=== PATIENT | male | born 1950 | race Caucasian/White ===

== ENCOUNTER → 2017-12-19 12:00 | Outpatient (CLI) | payer MEDICARE, SELFPAY | PROVIDERS: PCP Family Medicine; Visit Provider Internal Medicine Cardiovascular Disease | DX: I25.10 Atherosclerotic heart disease of native coronary artery without angina pectoris (principal); Z79.01 Long term (current) use of anticoagulants; I73.9 Peripheral vascular disease, unspecified; I10 Essential (primary) hypertension; E78.5 Hyperlipidemia, unspecified | CPT/HCPCS: 99213 ==

== ENCOUNTER 2017-12-26 11:34 | Outpatient (RCR) | payer MEDICARE, SELFPAY | END 2017-12-26 23:59 | disposition home or self-care (01) | LOC: CR 11:34 | PROVIDERS: PCP Family Medicine; Visit Provider Family Medicine | DX: I25.2 Old myocardial infarction (principal); Z95.5 Presence of coronary angioplasty implant and graft | CPT/HCPCS: S9472 ==

== ENCOUNTER 2017-12-30 18:30 | Outpatient (REF) | payer MEDICARE, SELFPAY ==
[2017-12-30 19:47] LABS: COMMENT (LAB VIEW ONLY) 168.22 mg/dL; Microalb ug/mg Crea 4.4 ug/mg Cr
== END 2017-12-30 18:50 ==
LOC: NCHCN 18:30
PROVIDERS: PCP Family Medicine; Visit Provider Family Medicine
DX: E11.8 Type 2 diabetes mellitus with unspecified complications (principal)
CPT/HCPCS: 82043; 82570

== ENCOUNTER 2018-01-23 13:19 | Outpatient (RCR) | payer MEDICARE, SELFPAY | END 2018-01-25 23:59 | disposition home or self-care (01) | LOC: CR 13:19 | PROVIDERS: PCP Family Medicine; Visit Provider Family Medicine | DX: I25.2 Old myocardial infarction (principal); Z95.5 Presence of coronary angioplasty implant and graft; Z51.89 Encounter for other specified aftercare | CPT/HCPCS: S9472 ==

== ENCOUNTER 2018-02-11 09:00 | Outpatient (RCR) | payer MEDICARE, SELFPAY | END 2018-02-25 23:59 | disposition home or self-care (01) | LOC: CR 09:00 | PROVIDERS: PCP Family Medicine; Visit Provider Family Medicine | DX: I25.2 Old myocardial infarction (principal); Z95.5 Presence of coronary angioplasty implant and graft; Z51.89 Encounter for other specified aftercare | CPT/HCPCS: S9472 ==

== ENCOUNTER 2018-03-27 13:20 | Outpatient (RCR) | payer MEDICARE, SELFPAY | END 2018-03-27 23:59 | disposition home or self-care (01) | LOC: CR 13:20 | PROVIDERS: PCP Family Medicine; Visit Provider Family Medicine | DX: I25.2 Old myocardial infarction (principal); Z95.5 Presence of coronary angioplasty implant and graft; Z51.89 Encounter for other specified aftercare | CPT/HCPCS: S9472 ==

== ENCOUNTER 2018-03-28 00:49 | Outpatient (RCR) | payer MEDICARE, SELFPAY | END 2018-04-27 23:59 | disposition home or self-care (01) | LOC: CR 00:49 | PROVIDERS: PCP Family Medicine; Visit Provider Family Medicine | DX: I25.2 Old myocardial infarction (principal); Z95.5 Presence of coronary angioplasty implant and graft; Z51.89 Encounter for other specified aftercare | CPT/HCPCS: S9472 ==

== ENCOUNTER 2018-04-29 10:40 | Outpatient (RCR) | payer MEDICARE, SELFPAY | END 2018-05-28 23:59 | disposition home or self-care (01) | LOC: CR 10:40 | PROVIDERS: PCP Family Medicine; Visit Provider Family Medicine | DX: I25.2 Old myocardial infarction (principal); Z95.5 Presence of coronary angioplasty implant and graft; Z51.89 Encounter for other specified aftercare ==

== ENCOUNTER 2020-01-16 17:09 | Emergency (ER) | payer MEDICARE, SELFPAY ==
--- NOTE | 2020-01-16 17:00 | RT.EKG_ITS ---
APPROVED REPORT Exam: Resting ECG Patient Location: E HR:76 bpm ECG Measurements Heart Rate 76 AXIS AZ 205 P 62 QRSd 98 QRS 47 QT 397 T 7 QTc 448 Conclusion Sinus rhythm...normal P axis, V-rate 60- 99. T wave inversion in lead III, seen in previous EKG. No STEMI.
[2020-01-16 17:18] VITALS: BP 180/79; PULSE 77; RESP 20; TEMP 36.9; O2SAT 98
[2020-01-16 17:44] LABS: Abs Immature Grans 0.36 10^3/uL (0.0-0.06); HCT 39.1 % (40.0-50.0); HGB 12.3 g/dL (13.5-17.5); MCH 30.5 pg (27.0-33.0); MCHC 31.5 % (32.0-36.0); MPV 10.2 fL (8.0-11.0); Nucleated RBC 0 %; Platelet Count 403 10^3/uL (130-400); RBC 4.03 10^6/uL (4.36-5.78); RDW 13.7 % (11.8-14.1); RDW-SD 48.6 fL
[2020-01-16 18:00] VITALS: BP 144/77; PULSE 81; RESP 24; O2SAT 97
[2020-01-16 18:00] LABS: INR 1.1 (0.9-1.1); Macrocytosis 1+; PTT Activated 21.4 sec (21.0-31.4); Prothrombin Time 11.3 sec (9.3-11.0)
[2020-01-16] MEDS: Normal Saline 500 ML IV ×2 (18:00→19:55)
[2020-01-16 18:01] LABS: ALT 42 U/L (16-63); AST 27 U/L (15-37); Albumin 3.7 g/dL (3.4-5.0); Alkaline Phosphatase 75 U/L (46-116); BUN 38 mg/dL (7-18); Bilirubin, Total 1.1 mg/dL (0.2-1.0); CREATININE 2.37 mg/dL (0.70-1.30); Calcium 9.4 mg/dL (8.5-10.1); Chloride 103 mmol/L (98-107); Diff Comment Manual Differential; Estimated GFR 27.21 (mL/min/1.73m2); Glucose 162 mg/dL (74-106); Magnesium 2.3 mg/dL (1.8-2.4); Potassium 4.6 mmol/L (3.5-5.1); Sodium 137 mmol/L (136-145); Total Protein 8.8 g/dL (6.4-8.2)
--- NOTE | 2020-01-16 18:02 | ED.GENADUL_ITS ---
Discharge Plan Disposition [facility] Condition: Serious Discharge Details Chief Complaint: Abd Prob Clinical Impression: Endoleak of aortic graft, Hematoma of right iliopsoas muscle, Fever, Bandemia, Acute kidney injury superimposed on chronic kidney disease Primary Care Provider: Douglas Hernandez ED Provider: Noa Herron Home Meds and New Rx's Prescriptions: No Action metoprolol succinate 100 MG tablet extended release 24 hr 100 mg PO DAILY 90 Days Qty: 90 RF: 4 metformin 500 MG tablet 500 mg PO DAILY RF: 0 atorvastatin [Lipitor] 80 MG tablet 80 mg PO HS RF: 0 clopidogrel [Plavix] 75 MG tablet 75 mg PO DAILY RF: 0 lisinopril 10 MG tablet 10 mg PO DAILY RF: 0 nitroglycerin [Nitrostat] 0.4 MG tablet, sublingual 0.4 mg Sublingual DIRECTED RF: 0 acetaminophen [Tylenol] 325 MG tablet 650 mg PO Q6H PRN PRNRF: 0 warfarin [Coumadin] 2.5 MG tablet 7.5 mg PO MOWEFR@1999 Qty: 100 RF: 0 isosorbide mononitrate 60 MG tablet extended release 24 hr 120 mg PO DAILY Qty: 60 RF: 3 warfarin [Coumadin] 5 MG tablet 10 mg PO SUTUTHSA@2000 Qty: 100 RF: 0 insulin aspart U-100 [Novolog Flexpen U-100 Insulin] 300 UNITS/3 ML insulin pen 5 units Sub-Q 0800,1200,1700 Qty: 5 RF: 3 insulin glargine [Lantus Solostar U-100 Insulin] 300 UNITS/3 ML insulin pen 35 units Sub-Q HS Qty: 5 RF: 3 (DME) blood sugar diagnostic [Blood Glucose Test] 1 EACH strip 1 ea Sub-Q AC Qty: 100 RF: 3 Medical Decision Making 1725 -- 69-year-old male with a history of abdominal aortic aneurysm who is 11 days status post right AUI stent graft for type IA endoleak from prior EVAR at the OR complicated by intramuscular hematoma requiring PRBC transfusion presents for sudden onset of bilateral hip pain and left leg pain and right-sided abdominal pain. BP hypertensive. Heart rate within normal limits. Initially afebrile and then developed a temp of 100.2. Abdomen is soft and tender along the staple incision site. There is right flank ecchymosis in various stages. His bilateral DP/PT pulses are faintly palpable. No lower extremity skin changes and otherwise neurovascular intact without focal deficits. EKG notes a rate of 76 and sinus with no acute ST ischemic findings. Concern for worsening intramuscular hematoma or intraperitoneal bleeding. Consi nuvia also DVT as patient has a history of DVT and his Coumadin has been stopped for the past week. Will obtain screening labs and CTA abdomen with runoff. 1800 -- Labs reviewed and note a white blood cell count of 13. Hemoglobin of 12.3. Bands of 2. INR of 1.1. Creatinine 2.37. [facility] his creatinine was noted to be 1.76. Troponin today negative. CTA changed to CT abdomen and pelvis without contrast and noted: 1. Defect in the graft material of infra renal abdominal aortic aneurysm stent with foci of increased density could reflect endoleak, and is suspicious of type 3 endoleak. 2. There are changes due to bifemoral bypass. There is hematoma within the right iliopsoas muscle adjacent to right lower quadrant. There is a focus of hyperdensity in the intra-abdominal region at the site of the graft in the right lower quadrant which might reflect clot from recent surgery, however, evaluation is limited due to the lack of administration of IV contrast for any active extravasation. There is mild swelling in the bilateral inguinal region due to recent bypass femoral graft. There is no abscess. 3. Diverticulosis of large bowel without signs of acute inflammation. 1845 -- [facility] discussed [facility] the [facility] and agree with plan for transfer. Results also discussed with patient and his daughter who are agreeable with plan. Will cover with Zosyn. Urinalysis ordered but not yet obtained prior to transfer. Medical Records Medical records reviewed: Yes I reviewed the patient's medical records. Imaging Data Radiologic Study: Radiologist's impression: CT Abdomen And Pelvis Without Contrast Exam date and time: 01/16/2020 6:25 PM Age: 69 years old Clinical indication: Other: B/l hip pain, L leg pain, S/P fem bypass; Prior surgery; Surgery date: <1 month; Surgery type: Jan 03 femoral bypass; Additional info: Rlq pain at surgical site, R/O acute abd, bleeding TECHNIQUE: Imaging protocol: Computed tomography of the abdomen and pelvis without contrast. Radiation optimization: All CT scans at this facility use at least one of these dose optimization techniques: automated exposure control; mA and/or kV adjustment per patient size (includes targeted exams where dose is matched to clinical indication); or iterative reconstruction. COMPARISON: No relevant prior studies available. FINDINGS: Lungs: There are bibasilar reticular interstitial thickening. Liver: There is mild hepatic steatosis. Gallbladder and bile ducts: Gallbladder is normally distended. The fluid within the gallbladder is hyperdense which could be due to concentrated bile versus sludge. No signs of acute inflammation. Pancreas: Normal. No ductal dilation. Spleen: There is calcified granuloma of the spleen. Adrenals: Normal. No mass. Kidneys and ureters: There is right renal cyst. The ureters are normal in course and caliber. Urinary bladder is unremarkable. Stomach and bowel: There is diffuse diverticulosis sigmoid and descending colon . large bowel is overall not distended. Small bowel is within normal limits in size. Stomach is mildly distended, otherwise unremarkable. Appendix: No evidence of appendicitis. Intraperitoneal space: There is no free air. Vasculature: There is a abdominal aortic stent graft from the level of origin of superior mesenteric artery and extends to the common and external iliac arteries . There is a 4.6 x 4 .6 cm infrarenal abdominal aortic aneurysm. There is a defect and irregularity in the graft material (image 63 series 5). There are foci of subjacent increased density in the abdominal aortic aneurysm (image 50 series 2) suspicious of endoleak. Additionally, there are postoperative changes due to bifemoral bypass in the bilateral inguinal region and adjacent right pelvic cavity. Lymph nodes: Unremarkable. No enlarged lymph nodes. Bladder: See Kidneys and ureters finding. Reproductive: Prostate and seminal vesicles unremarkable. Bones/joints: Visualized osseous structures demonstrate no acute abnormality. Soft tissues: Right iliopsoas muscle is enlarged with increased density, likely due to intramuscular hematoma.. In addition, there is a 4.5 x 3.4 cm hematoma on the superior aspect of right iliacus muscle in the right lower quadrant (image 58 series 2) which extends down words to the level of right inguinal region. There is a focus of 1.1 cm hyperdensity adjacent to the bypass graft in the right lower quadrant (image 78 series 2) which might reflect hyperdense clot without excluding active extravasation. IMPRESSION: 1. Defect in the graft material of infra renal abdominal aortic aneurysm stent with foci of increased density could reflect endoleak, and is suspicious of type 3 endoleak. 2. There are changes due to bifemoral bypass. There is hematoma within the right iliopsoas muscle adjacent to right lower quadrant. There is a focus of hyperdensity in the intra-abdominal region at the site of the graft in the right lower quadrant which might reflect clot from recent surgery, however, evaluation is limited due to the lack of administration of IV contrast for any active extravasation. There is mild swelling in the bilateral inguinal region due to recent bypass femoral graft. There is no abscess. 3. Diverticulosis of large bowel without signs of acute inflammation. 4. Findings were discussed with the ER physician at the time of dictation. Lab Data Lab results reviewed: Yes I reviewed the patient's lab results. Labs: 01/16/20 18:44 Blood Blood Culture - Pending 01/16/20 18:44 Blood Blood Culture - Pending Laboratory Tests Range/Units 01/16/20 01/16/20 01/16/20 17:18 17:18 17:18 WBC (4.4-10.8) 10^3/uL 13.90 H RBC (4.36-5.78) 10^6/uL 4.03 L Hgb (13.5-17.5) g/dL 12.3 L Hct (40.0-50.0) % 39.1 L MCV (80-95) fL 97.0 H MCH (27.0-33.0) pg 30.5 MCHC (32.0-36.0) % 31.5 L RDW (11.8-14.1) % 13.7 Plt Count (130-400) 10^3/uL 403 H MPV (8.0-11.0) fL 10.2 Immature Gran % 0.0 Neutrophils % 72.0 Band Neutrophils % 2 Lymphocytes % 5.0 Atypical Lymphs % 5 Monocytes % 12.0 Eosinophils % 3.0 Basophils % 0.0 Myelocytes % 1 Nucleated RBC % % 0 Absolute Neutrophils (1.2-6.7) 10^3/uL 10.29 H Absolute Lymphocytes (1.2-3.4) 10^3/uL 1.39 Absolute Monocytes (0.1-0.8) 10^3/uL 1.67 H Absolute Eosinophils (0.0-0.7) 10^3/uL 0.42 Absolute Basophils (0.0-0.2) 10^3/uL 0.00 RBC Morphology See below Macrocytosis 1+ PT (9.3-11.0) sec 11.3 H INR (0.9-1.1) 1.1 APTT (21.0-31.4) sec 21.4 Sodium (136-145) mmol/L 137 Potassium (3.5-5.1) mmol/L 4.6 Chloride (98-107) mmol/L 103 Carbon Dioxide (21.0-32.0) mmol/L 21.0 Anion Gap (3-11) mmol/L 13.0 H BUN (7-18) mg/dL 38 H Creatinine (0.70-1.30) mg/dL 2.37 H Estimated GFR/1.73 m2 (mL/min/1.73m2) 27.21 Glucose (74-106) mg/dL 162 H Calcium (8.5-10.1) mg/dL 9.4 Magnesium (1.8-2.4) mg/dL 2.3 Total Bilirubin (0.2-1.0) mg/dL 1.1 H AST (15-37) U/L 27 ALT (16-63) U/L 42 Alkaline Phosphatase (46-116) U/L 75 Troponin I (<0.06) ng/mL < 0.05 Total Protein (6.4-8.2) g/dL 8.8 H Albumin (3.4-5.0) g/dL 3.7 ECG Data Attestation: I personally reviewed and interpreted this ECG (s) as follows: Interpretation: Rate of 76, sinus, T wave inversion in lead III. No acute ST elevation or depression. OR 205. QRS 90. QTc 448. HPI General Mode of arrival: ambulatory . Date/Time Provider Initiated Documentation: 01/16/20 17:09 . Limitations to Documentation: no limitations . Information obtained by: patient . HPI Narrative: Patient is a 69-year-old male who is 11 days status post a right a UI stent graft for type Ia endoleak from prior EVAR presents with sudden onset of bilateral hip and left leg pain that started while sitting at home just prior to arrival. Patient states [facility] was complicated by hematoma requiring 1 unit transfusion of PRBCs. Patient was discharged from there 4 days ago. [facility] not [facility] today regarding his symptoms today. Patient is anticoagulated on Coumadin but states this has been held since last Friday due to his recent hematoma. He denies any known fever, chest pain, shortness of breath. He does admit to some abdominal pain around the surgical site in the right lower quadrant. He denies any right leg pain. He denies any known new injury. Related Data Home Medications Medication Instructions Recorded Confirmed atorvastatin [Lipitor] 80 mg PO HS 11/08/15 10/31/17 clopidogrel [Plavix] 75 mg PO DAILY 11/08/15 10/31/17 lisinopril 10 mg PO DAILY 11/08/15 10/31/17 metformin 500 mg PO DAILY 11/08/15 10/31/17 nitroglycerin [Nitrostat] 0.4 mg SUBLINGUAL DIRECTED 11/08/15 10/31/17 acetaminophen [Tylenol] 650 mg PO Q6H PRN PRN tab 11/11/15 10/31/17 blood sugar diagnostic [Test #100 strip 11/01/17 Strips] insulin aspart U-100 [Novolog 5 units SUB-Q 0800,1200,1700 #5 pen 11/01/17 Flexpen U-100 Insulin] insulin glargine [Lantus Solostar 35 units SUB-Q HS #5 pen 11/01/17 U-100 Insulin] isosorbide mononitrate 120 mg PO DAILY #60 tabcr 11/01/17 warfarin [Coumadin] 7.5 mg PO MOWEFR@1999 #100 tab 11/01/17 warfarin [Coumadin] 10 mg PO SUTUTHSA@1999 #100 tab 11/01/17 metoprolol succinate 100 mg PO DAILY 90 Days #90 tab-cap 12/19/17 Previous Rx's Medication Instructions Recorded acetaminophen [Tylenol] 650 mg PO Q6H PRN PRN tab 11/11/15 blood sugar diagnostic [Test #100 strip 11/01/17 Strips] insulin aspart U-100 [Novolog 5 units SUB-Q 0800,1200,1700 #5 pen 11/01/17 Flexpen U-100 Insulin] insulin glargine [Lantus Solostar 35 units SUB-Q HS #5 pen 11/01/17 U-100 Insulin] isosorbide mononitrate 120 mg PO DAILY #60 tabcr 11/01/17 warfarin [Coumadin] 7.5 mg PO MOWEFR@1999 #100 tab 11/01/17 warfarin [Coumadin] 10 mg PO SUTUTHSA@1999 #100 tab 11/01/17 metoprolol succinate 100 mg PO DAILY 90 Days #90 tab-cap 12/19/17 Allergies Allergy/AdvReac Type Severity Reaction Status Date / Time No Known Allergies Allergy Unverified 10/31/17 13:38 General Stated Complaint: Abd Prob NADEEM: 2 Review of Systems All systems reviewed & are unremarkable except as noted in HPI and below Constitutional Constitutional: Reports as per HPI, Denies chills and Denies fever(s) Eyes Eyes: Denies blurry vision ENT Ears, Nose, Mouth, and Throat: Denies dizziness, Denies sore throat and Denies throat swelling Cardiovascular Cardiovascular: Denies chest pain and Denies dyspnea Respiratory Respiratory: Denies cough and Denies dyspnea Gastrointestinal Gastrointestinal: Reports abdominal pain, Denies diarrhea and Denies vomiting Genitourinary Genitourinary: Denies hematuria and Denies dysuria Musculoskeletal Musculoskeletal: Denies back pain, Denies numbness and Reports other (b/l hip, L leg pain) Integumentary/Breasts Skin/Breast: Denies lesions and Denies rash Neurologic Neurologic: Denies dizziness, Denies localized weakness and Denies numbness Allergic/Immunologic Allergic/Immunologic: Denies throat swelling [facility] Medical History (Updated 01/16/20 @ 20:16 by Noa Herron DO) Diabetes mellitus type 2 in nonobese DVT (deep venous thrombosis) Hyperlipidemia Non-ST elevation (NSTEMI) myocardial infarction PVD (peripheral vascular disease) STEMI (ST elevation myocardial infarction) Tobacco use disorder Social History Smoking/Tobacco Use Status: Former Tobacco Use Alcohol Intake: never Drug use: Socially Do you feel safe in your relationship?: Yes Exam Const General: cooperative, no acute distress and ill appearing chronically Orientation: alert, awake and oriented x3 HENMT Head: normal to inspection Face and sinus: normal facial exam Eyes General: appearance normal, both eyes and all related structures EOM: EOM intact bilaterally Neck Neck: normal visual inspection and No submandibular swelling Lymphatic: no lymphadenopathy noted Chest Chest: normal inspection of the chest and no tenderness Resp Effort & Inspection: normal respiratory effort and able to speak in complete sentences Auscultation: clear to auscultation bilaterally Cardio Rate: regular rate Rhythm: regular rhythm GI Inspection: normal to inspection Palpation: soft, not firm, not rigid and tender in the RLQ Auscultation: hypoactive bowel sounds Abdomen image: 1. [place] at surgical site. Mild to moderate surrounding tenderness. No erythema. Healing ecchymosis just below incision. No fluctuance or induration or drainage. No active bleeding. Male General Exam: Yes normal external exam Scrotum: no scrotal swelling Testes: no testicular tenderness Back/Spine/Pelvis Back/spine/pelvis image: 1. Large area of ecchymosis in various stages of healing. Skin General skin exam: no rashes or lesions noted Neuro General: patient alert, patient awake, patient oriented x3 and no focal motor deficits Cognition: normal cognition Speech: speech normal Motor: muscle tone normal throughout and strength 5/5 throughout Sensory Exam: no sensory deficits noted Extrem General: normal to inspection, full ROM, capillary refill normal, no calf tenderness bilaterally and no edema Other: Bilateral popliteal, PT, DP pulses faintly palpable Psych Appearance: grossly normal Mental Status: mental status grossly normal Speech and Movement: speech and movement normal Affect: normal affect Course Vital Signs Vital signs: Vital Signs Temperature 98.4 F 01/16/20 17:18 Pulse 77 01/16/20 17:18 Respiratory Rate 20 01/16/20 17:18 Blood Pressure 180/79 H 01/16/20 17:18 Pulse Oximetry 98 01/16/20 17:18 Temperature 98.4 F 01/16/20 17:18 Temperature Source Skin 01/16/20 17:18 Pulse 77 01/16/20 17:18 Respiratory Rate 20 01/16/20 17:18 Blood Pressure 180/79 H 01/16/20 17:18 Blood Pressure Position Supine 01/16/20 17:18 Pulse Oximetry 98 01/16/20 17:18 Oxygen Delivery Method Room Air 01/16/20 17:18 Oxygen Flow Rate 0 01/16/20 17:18 Pain Level 10 01/16/20 17:18
[2020-01-16 18:06] LABS: Absolute Eosinophil Count 0.42 10^3/uL (0.0-0.7); Absolute Lymphocyte Count 1.39 10^3/uL (1.2-3.4); Absolute Monocyte Count 1.67 10^3/uL (0.1-0.8); Absolute Neutrophil Count 10.29 10^3/uL (1.2-6.7); Atypical Lymphocytes % 5; Bands % 2; Myelocytes % 1
[2020-01-16 18:08] LABS: Troponin I < 0.05 ng/mL (<0.06)
--- NOTE | 2020-01-16 18:30 | DI.CT_ITS ---
EXAM: CT ABDOMEN PELVIS WO CLINICAL HISTORY: b/l hip pain, L leg pain, s/p fem bypass. TECHNIQUE: Imaging Protocol: Axial computed tomography images with coronal and sagittal reformatted images were created and reviewed. COMPARISON: No exams were available for comparison FINDINGS: ABDOMEN: Lung Bases: Normal where visualized. Liver: Normal density. No measurable mass. Gallbladder and biliary tract: No biliary ductal dilatation. Through the fluid within the gallbladde r is hyperdense which may reflect concentrated bile versus sludge. Pancreas: Normal density, no abnormal calcifications or inflammatory process. Spleen: Normal. Kidneys: Normal size, contour and axis.No radiodense stones or obstructive uropathy. No masses seen. Adrenal glands: No mass is seen. Lymph nodes: Within normal limits. Abdominal Aorta: There is a 4.6 cm infrarenal abdominal aortic aneurysm. There is an abdominal abdom inal aortic stent graft extending from the superior mesenteric artery into the common and external il iac arteries. There are foci of increased density in the abdominal aortic aneurysm suspicious for an endoleak. (Series 2, image 50) series 5, image 63). Postsurgical changes of a bi femoral bypass is also noted. Vasculature: There is a 1.1 cm hyperdensity adjacent to the bypass graft in the right lower quadrant which may reflect hyperdense clot. Active extravasation cannot be excluded. PELVIS: Bladder:Symmetric distention, no gross wall thickening. Bowel: No obstruction or bowel wall thickening. No evidence of appendicitis. There is colonic divert iculosis but no evidence of acute diverticulitis. Peritoneal cavity: No ascites, collection or mesenteric inflammatory response Reproductive organs: Within normal limits. Bones: Within normal limits. Soft Tissues: The right iliopsoas muscle is enlarged with increased density most suggestive of an int ramuscular hematoma. There is a 4.5 x 3.4 cm hematoma on the superior aspect of the right iliacus mu scle in the right lower quadrant. It extends inferiorly to the right inguinal region. IMPRESSION: 1. Question of a defect in the graft material in infrarenal abdominal aortic aneurysm. Adjacent foci of increased density could reflect an endoleak. 2. Right iliopsoas muscle hematoma. 3. Focus of hyperdensity adjacent to the graft in the right lower quadrant which may represent a clot versus active extravasation. 4. Postsurgical changes of an abdominal aortic stent graft and bi femoral bypass RADIATION DOSE DELIVERED: 978.33mGy.cm Total DLP DATA REPOSITORY: All CT scans at this facility are submitted to the National Radiology Data Registry (NRDR) Dose Index Registry (DIR) with the [employer] ([employer]). RADIATION OPTIMIZATION: All CT scans at this facility use at least one of these dose optimization te chniques: automated exposure control; mA and/or kV adjustment per patient size (includes targeted exa ms where dose is matched to clinical indication); or iterative reconstruction.
[2020-01-16 18:33] VITALS: BP 147/70; PULSE 87; RESP 22; TEMP 37.9; O2SAT 95
[2020-01-16 19:00] VITALS: BP 141/68; PULSE 81; RESP 13; O2SAT 95
--- NOTE | 2020-01-16 19:19 | DI.VRAD_ITS ---
PROCEDURE INFORMATION: Exam: CT Abdomen And Pelvis Without Contrast Exam date and time: 01/16/2020 6:25 PM Age: 69 years old Clinical indication: Other: B/l hip pain, L leg pain, S/P fem bypass; Prior surgery; Surgery date: <1 month; Surgery type: Jan 03 femoral bypass; Additional info: Rlq pain at surgical site, R/O acute abd, bleeding TECHNIQUE: Imaging protocol: Computed tomography of the abdomen and pelvis without contrast. Radiation optimization: All CT scans at this facility use at least one of these dose optimization techniques: automated exposure control; mA and/or kV adjustment per patient size (includes targeted exams where dose is matched to clinical indication); or iterative reconstruction. COMPARISON: No relevant prior studies available. FINDINGS: Lungs: There are bibasilar reticular interstitial thickening. Liver: There is mild hepatic steatosis. Gallbladder and bile ducts: Gallbladder is normally distended. The fluid within the gallbladder is hyperdense which could be due to concentrated bile versus sludge. No signs of acute inflammation. Pancreas: Normal. No ductal dilation. Spleen: There is calcified granuloma of the spleen. Adrenals: Normal. No mass. Kidneys and ureters: There is right renal cyst. The ureters are normal in course and caliber. Urinary bladder is unremarkable. Stomach and bowel: There is diffuse diverticulosis sigmoid and descending colon . large bowel is overall not distended. Small bowel is within normal limits in size. Stomach is mildly distended, otherwise unremarkable. Appendix: No evidence of appendicitis. Intraperitoneal space: There is no free air. Vasculature: There is a abdominal aortic stent graft from the level of origin of superior mesenteric artery and extends to the common and external iliac arteries . There is a 4.6 x 4 .6 cm infrarenal abdominal aortic aneurysm. There is a defect and irregularity in the graft material (image 63 series 5). There are foci of subjacent increased density in the abdominal aortic aneurysm (image 50 series 2) suspicious of endoleak. Additionally, there are postoperative changes due to bifemoral bypass in the bilateral inguinal region and adjacent right pelvic cavity. Lymph nodes: Unremarkable. No enlarged lymph nodes. Bladder: See Kidneys and ureters finding. Reproductive: Prostate and seminal vesicles unremarkable. Bones/joints: Visualized osseous structures demonstrate no acute abnormality. Soft tissues: Right iliopsoas muscle is enlarged with increased density, likely due to intramuscular hematoma.. In addition, there is a 4.5 x 3.4 cm hematoma on the superior aspect of right iliacus muscle in the right lower quadrant (image 58 series 2) which extends down words to the level of right inguinal region. There is a focus of 1.1 cm hyperdensity adjacent to the bypass graft in the right lower quadrant (image 78 series 2) which might reflect hyperdense clot without excluding active extravasation. IMPRESSION: 1. Defect in the graft material of infra renal abdominal aortic aneurysm stent with foci of increased density could reflect endoleak, and is suspicious of type 3 endoleak. 2. There are changes due to bifemoral bypass. There is hematoma within the right iliopsoas muscle adjacent to right lower quadrant. There is a focus of hyperdensity in the intra-abdominal region at the site of the graft in the right lower quadrant which might reflect clot from recent surgery, however, evaluation is limited due to the lack of administration of IV contrast for any active extravasation. There is mild swelling in the bilateral inguinal region due to recent bypass femoral graft. There is no abscess. 3. Diverticulosis of large bowel without signs of acute inflammation. 4. Findings were discussed with the ER physician at the time of dictation. Dictated and Authenticated by: Arsh Rangel MD. Ordering:MIRIAM Latham MD
[2020-01-16] MEDS: PIPERACILLIN/TAZO 2.25 GM in Normal Saline 50 ML IVPB (19:29)
[2020-01-16] MEDS: ACETAMINOPHEN 1,000 MG/100 ML BTL 400 MG IVPB (19:29)
[2020-01-16 19:30] VITALS: BP 126/67; PULSE 88; RESP 15; O2SAT 93
[2020-01-16 20:00] VITALS: BP 152/58; PULSE 82; RESP 18; O2SAT 97
== END 2020-01-16 19:10 | disposition short-term general hospital (02) ==
PROVIDERS: Emergency Provider Physician Assistant; PCP Family Medicine
DX: T82.330A Leakage of aortic (bifurcation) graft (replacement), initial encounter (principal); M79.81 Nontraumatic hematoma of soft tissue; N17.9 Acute kidney failure, unspecified; N18.9 Chronic kidney disease, unspecified; D72.825 Bandemia; R50.9 Fever, unspecified; Z79.01 Long term (current) use of anticoagulants; Z86.718 Personal history of other venous thrombosis and embolism; E11.22 Type 2 diabetes mellitus with diabetic chronic kidney disease; Z79.4 Long term (current) use of insulin
CPT/HCPCS: 36415; 80053; 87040; 93005; 96361; 96365; 96375; 96376; 99285; 74176; 83605; 83735; 84484; 85025; 85610; 85730; 93010; J0131; J2543

== ENCOUNTER 2020-01-25 14:29 | Emergency (ER) | payer MEDICARE, SELFPAY ==
[2020-01-25 14:42] VITALS: BP 138/75; PULSE 99; RESP 18; TEMP 36.4; O2SAT 97
--- NOTE | 2020-01-25 14:59 | RT.EKG_ITS ---
APPROVED REPORT Exam: Resting ECG Patient Location: E HR:89 bpm ECG Measurements Heart Rate 89 AXIS NM 183 P 42 QRSd 93 QRS 40 QT 346 T 6 QTc 421 Conclusion Sinus rhythm...normal P axis, V-rate 60- 99 Low voltage, precordial leads...precordial leads <1.0mV
--- NOTE | 2020-01-25 15:30 | DI.CT_ITS ---
EXAM: CT ABDOMEN PELVIS WO CLINICAL HISTORY: Recent graft endoleak and hematoma. TECHNIQUE: Noncontrast COMPARISON: CT CT ABDOMEN PELVIS WO from 01/16/2020 FINDINGS: ABDOMEN: Lung Bases: Normal where visualized. Liver: Normal density. No measurable mass. Gallbladder and biliary tract: No radiodense calculus or dilation. High-density material is again not ed which could represent sludge. There is no wall thickening or surrounding inflammation. Pancreas: Normal density, no abnormal calcifications or inflammatory process. Spleen: Normal. Kidneys: Normal size, contour and axis. No radiodense stones or obstructive uropathy. No masses seen. Adrenal glands: No masses seen. Lymph nodes: Within normal limits. Abdominal Aorta: There is been no change in size of the abdominal aortic aneurysm. Stent grafts are seen extending from the level of the superior mesenteric artery through the common and external iliac arteries. There has been no change in the high-density area within the aneurysm suspicious for an en doleak. Bifemoral bypass graft is again noted. Right lower quadrant skin leonardo are seen. There h as been interval decrease in right iliopsoas hematoma. PELVIS: Bladder: Symmetric distention, no gross wall thickening. Bowel: No obstruction or bowel wall thickening. Diverticulosis. Peritoneal cavity: Small amount of fluid in the low posterior pelvis. Reproductive organs: Within normal limits. Bones: Within normal limits. IMPRESSION: Stable appearance of aorto bi-iliac stent graft and small endoleak. Decrease in size of right iliops oas hematoma. No new abnormalities. RADIATION DOSE DELIVERED: 1,106.07mGy.cm Total DLP DATA REPOSITORY: All CT scans at this facility are submitted to the National Radiology Data Registry (NRDR) Dose Index Registry (DIR) with the [employer] ([employer]). RADIATION OPTIMIZATION: All CT scans at this facility use at least one of these dose optimization te chniques: automated exposure control; mA and/or kV adjustment per patient size (includes targeted exa ms where dose is matched to clinical indication); or iterative reconstruction.
[2020-01-25 15:34] LABS: ALT 21 U/L (16-63); AST 15 U/L (15-37); Albumin 3.3 g/dL (3.4-5.0); Alkaline Phosphatase 67 U/L (46-116); Anion Gap 14.6 mmol/L (3-11); BUN 66 mg/dL (7-18); Bilirubin, Total 0.7 mg/dL (0.2-1.0); CO2 14.4 mmol/L (21.0-32.0); CREATININE 3.37 mg/dL (0.70-1.30); Calcium 8.6 mg/dL (8.5-10.1); Chloride 107 mmol/L (98-107); Estimated GFR 18.13 (mL/min/1.73m2); Glucose 209 mg/dL (74-106); Potassium 4.9 mmol/L (3.5-5.1); Sodium 136 mmol/L (136-145); Total Protein 7.8 g/dL (6.4-8.2); Troponin I < 0.05 ng/mL (<0.06)
[2020-01-25 15:35] VITALS: BP 166/104; PULSE 84; RESP 26; O2SAT 100
[2020-01-25 15:35] LABS: Abs Immature Grans 0.11 10^3/uL (0.0-0.06); Absolute Basophil Count 0.07 10^3/uL (0.0-0.2); Absolute Eosinophil Count 0.31 10^3/uL (0.0-0.7); Absolute Monocyte Count 0.87 10^3/uL (0.1-0.8); Absolute Neutrophil Count 7.14 10^3/uL (1.2-6.7); Basophils % 0.7; Eosinophils % 3.1; HGB 11.6 g/dL (13.5-17.5); Immature Grans % 1.1; Lymphocytes % 14.1; MCH 30.6 pg (27.0-33.0); MCHC 32.2 % (32.0-36.0); MPV 10.6 fL (8.0-11.0); Monocytes % 8.8; Neutrophils % 72.2; Nucleated RBC 0 %; Platelet Count 275 10^3/uL (130-400); RBC 3.79 10^6/uL (4.36-5.78); RDW 13.4 % (11.8-14.1); RDW-SD 46.4 fL
--- NOTE | 2020-01-25 15:41 | NUR.NOTE ---
no improvement with pain medication, pt reports increasingly worse. provider Silverio notified
[2020-01-25 15:43] LABS: INR 1.1 (0.9-1.1); PTT Activated 22.2 sec (21.0-31.4); Prothrombin Time 11.5 sec (9.3-11.0)
[2020-01-25] MEDS: HYDROmorphone 2 MG/ML VIAL 1 MG IVP ×2 (15:49→20:25)
--- NOTE | 2020-01-25 15:57 | ED.GENADUL_ITS ---
Discharge Plan Disposition Patient Disposition: [facility] [place] Condition: Poor Discharge Details Clinical Impression: Endoleak of aortic graft, Acute kidney injury superimposed on chronic kidney disease ED Provider: Maria L Blackburn Home Meds and New Rx's Prescriptions: No Action metoprolol succinate 100 MG tablet extended release 24 hr 100 mg PO DAILY 90 Days Qty: 90 RF: 4 metformin 500 MG tablet 500 mg PO DAILY RF: 0 atorvastatin [Lipitor] 80 MG tablet 80 mg PO HS RF: 0 clopidogrel [Plavix] 75 MG tablet 75 mg PO DAILY RF: 0 lisinopril 10 MG tablet 10 mg PO DAILY RF: 0 nitroglycerin [Nitrostat] 0.4 MG tablet, sublingual 0.4 mg Sublingual DIRECTED RF: 0 acetaminophen [Tylenol] 325 MG tablet 650 mg PO Q6H PRN PRNRF: 0 warfarin [Coumadin] 2.5 MG tablet 7.5 mg PO MOWEFR@1999 Qty: 100 RF: 0 isosorbide mononitrate 60 MG tablet extended release 24 hr 120 mg PO DAILY Qty: 60 RF: 3 warfarin [Coumadin] 5 MG tablet 10 mg PO SUTUTHSA@1999 Qty: 100 RF: 0 insulin aspart U-100 [Novolog Flexpen U-100 Insulin] 300 UNITS/3 ML insulin pen 5 units Sub-Q 0800,1200,1700 Qty: 5 RF: 3 insulin glargine [Lantus Solostar U-100 Insulin] 300 UNITS/3 ML insulin pen 35 units Sub-Q HS Qty: 5 RF: 3 (DME) blood sugar diagnostic [Blood Glucose Test] 1 EACH strip 1 ea Sub-Q AC Qty: 100 RF: 3 Discharge Data Discharge Date/Time-TO BE ENTERED AT DEPARTURE: 01/25/20 20:30 Medical Decision Making <NERI Tobar - Last Filed: 01/26/20 07:18> 69-year-old gentleman with extensive past medical history, recent endoleak and hematoma presents to the ER for sudden onset bilateral lower leg pain. I was able to review the notes from the [place]. It appears as though the TANIA was resolving with fluids. Hematoma was decreasing in size. Concern is that of a expanding hematoma, expanding deficit in the graft, aneurysm, dissection, etc. Case was immediately discussed with Dr. Rubin. Two IVs were established. Patient given 2 mg IV morphine, 1 L IV fluid, will obtain laboratory values including coags, EKG, troponin. I would like to obtain a CTA of his abdomen and pelvis but I do need to wait for his GFR given his recent TANIA. Patient required a second dose of IV morphine Laboratory values reveal a white blood cell count of 9.90 hemoglobin 11.6 hematocrit 36.0 platelet count 275. INR 1.1. Potassium 4.9 BUN 66 creatinine 3.37 GFR 18.13. Glucose 209. LFTs unremarkable. CT changed from CTA to CT abdomen and pelvis without contrast. Patient given 1 mg IV Dilaudid. Medical Records Medical records reviewed: Yes I reviewed the patient's medical records. Lab Data Lab results reviewed: Yes I reviewed the patient's lab results. Lab results narrative: Laboratory Tests Range/Units 01/25/20 01/25/20 01/25/20 14:59 15:00 15:00 WBC (4.4-10.8) 10^3/uL 9.90 RBC (4.36-5.78) 10^6/uL 3.79 L Hgb (13.5-17.5) g/dL 11.6 L Hct (40.0-50.0) % 36.0 L MCV (80-95) fL 95.0 MCH (27.0-33.0) pg 30.6 MCHC (32.0-36.0) % 32.2 RDW (11.8-14.1) % 13.4 Plt Count (130-400) 10^3/uL 275 D MPV (8.0-11.0) fL 10.6 Immature Gran % 1.1 Neutrophils % 72.2 Lymphocytes % 14.1 Monocytes % 8.8 Eosinophils % 3.1 Basophils % 0.7 Nucleated RBC % % 0 Absolute Neutrophils (1.2-6.7) 10^3/uL 7.14 H Absolute Lymphocytes (1.2-3.4) 10^3/uL 1.40 Absolute Monocytes (0.1-0.8) 10^3/uL 0.87 H Absolute Eosinophils (0.0-0.7) 10^3/uL 0.31 Absolute Basophils (0.0-0.2) 10^3/uL 0.07 PT (9.3-11.0) sec 11.5 H INR (0.9-1.1) 1.1 APTT (21.0-31.4) sec 22.2 Sodium (136-145) mmol/L 136 Potassium (3.5-5.1) mmol/L 4.9 Chloride (98-107) mmol/L 107 Carbon Dioxide (21.0-32.0) mmol/L 14.4 L Anion Gap (3-11) mmol/L 14.6 H BUN (7-18) mg/dL 66 H Creatinine (0.70-1.30) mg/dL 3.37 H Estimated GFR/1.73 m2 (mL/min/1.73m2) 18.13 Glucose (74-106) mg/dL 209 H Calcium (8.5-10.1) mg/dL 8.6 Total Bilirubin (0.2-1.0) mg/dL 0.7 AST (15-37) U/L 15 ALT (16-63) U/L 21 Alkaline Phosphatase (46-116) U/L 67 Troponin I (<0.06) ng/mL < 0.05 Total Protein (6.4-8.2) g/dL 7.8 Albumin (3.4-5.0) g/dL 3.3 L ECG Data Attestation: I personally reviewed and interpreted this ECG (s) as follows: Interpretation: Please see official report by Dr. Rubin. Sinus rhythm, ventricular rate of 89. No STEMI. <NERI Mathews - Last Filed: 01/26/20 14:28> Care transitioned to myself from Silverio Good PA-C with imaging pending. In brief, the patient is a pleasant 69 year old male who presented with 1hr of sudden onset lower groin pain that radiates into the anterior upper thighs bilaterally. He had stent of fem-fem bipas on 01/03. Had been doing well int he postoperative period until 01/15. At that time, patient was seen here and concern for endoleak was diagnosed. Study was limited as the patient had elevated creatinine is unable to undergo contrasted CT study. He was transferred [place]. While admitted at the [place], his Coumadin was stopped and patient was subsequently discharged following day. He reports he has been feeling well since the discharge until today. He denies any new numbness or tingling. No trauma. Denies any fevers or chills. No nausea or vomiting. No change in bowel or bladder habits. Labs are reviewed. Patient has stable hemoglobin 11.6. Creatinine is elevated at 3.37, this is up from 2.37 when he was here on 01/16/2020. His baseline is around 1.5 but this is all prior to his surgery on 01/04/2020. Exam reveals no peritoneal findings on abdomen. He indicates more the right flank is area of discomfort but no CVA tenderness. His ecchymotic area is improved greatly on the right flank. I am unable to Doppler pulses on his bilateral feet but he does have 3-second capillary refill and warm feet. CT reviewed by radiologist: FINDINGS: Liver: Mild hepatic steatosis. Gallbladder and bile ducts: Nonspecific stable hyperdense material within the gallbladder lumen, possibly layering gallbladder sludge versus concentrated bile. No radiopaque gallstone or acute cholecystitis. Pancreas: Unremarkable. No ductal dilation. Spleen: Calcified splenic granuloma. Adrenals: Unremarkable. Kidneys and ureters: Chronic bilateral renal scarring. Stable nonspecific subcentimeter right renal cysts, difficult to properly characterize on this study. Stable mild right perinephric stranding. Stomach and bowel: Colonic diverticulosis without evidence of acute diverticulitis. No evidence of bowel obstruction. Appendix: No evidence of appendicitis. Intraperitoneal space: No free air. Vasculature: There is redemonstration of aorta bi-iliac stent graft with the superior origin at the level of superior mesenteric artery and inferior extent within the bilateral common and external iliac arteries. There is redemonstration of a 4.6 x 4.9 x 8.1 cm (TV x AP x CC) infrarenal abdominal aortic aneurysm spanning L3-L5, similar in size when compared with the previous study. There is redemonstration of a defect within the graft material with surrounding intraluminal hyperdensity within the abdominal aortic aneurysm, suspicious for an endoleak. Findings have not significantly changed since the recent study. No periaortic soft tissue inflammation. Again seen are postoperative changes of bifemoral bypass, with redemonstration 1 cm hyperdense focus in the right lower quadrant, possibly reflecting hyperdense clot (image 74, series 2). Multiple pelvic phleboliths. Lymph nodes: No suspicious lymphadenopathy. Urinary bladder: Unremarkable as visualized. Reproductive: Unremarkable as visualized. Bones/joints: No acute fracture. Degenerative changes of the lumbar spine. Soft tissues: Fat containing right inguinal hernia. There is redemonstration of intramuscular hematoma within the right iliopsoas muscle and right iliacus muscle, minimally decreased in size. Postsurgical clips overlying the right lower quadrant. IMPRESSION: 1. Aortic bi-iliac stent graft with redemonstration of a defect within the infrarenal abdominal aortic aneurysm with surrounding intraluminal hyperdensity, suspicious for a type 3 endoleak. Findings are not significantly changed when compared with the recent study from 01/16/2020. 2. Bifemoral bypass with stable small hyperdense focus within the right lower quadrant, possibly representing hyperdense clot. 3. Slight interval decrease in intramuscular hematoma in the right iliopsoas muscle and right iliacus muscle. 4. No new acute abnormality or significant interval change. [facility] Spoke with vascular surgery as well as emergency medicine. Dr. Miranda will be accepting at their facility. Discussed plan with patient and his sister. All of their questions and concerns were addressed in agreement with transfer. Patient has remained comfortable since his initial narcotic dosing. We will give 1 dose prior to EMS transfer. HPI <NERI Tobar - Last Filed: 01/26/20 07:18> General Mode of arrival: ambulatory . Date/Time Provider Initiated Documentation: 01/25/20 14:41 . Limitations to Documentation: no limitations . Information obtained by: patient . HPI Narrative: This is a 69-year-old gentleman with past medical history that includes diabetes type 2, hyperlipidemia, and STEMI, PVD, STEMI, former smoker, presenting to the ER today with bilateral upper leg pain that began about 30 minutes ago no trauma whatsoever. Patient was seen here at our ER on the of this month he was 11-day status post right AUI stent graft for type Ia endoleak from prior EVAR at the [place]. This was complicated by intramuscular hematoma requiring packed red blood cell transfusion. [facility] and per patient was discharged home the following day. He has been asymptomatic up until about 30 minutes ago. He denies any injury or illness. Denies headache, chest pain, shortness of breath, abdominal pain, nausea, vomiting, back pain. The pain starts around his hips and travels down the anterior aspect of both legs but not below his knees. He denies any pain lower than his knees. He reports baseline neuropathy but denies any new or changing sensations. Denies change in bowel or bladder habits. Patient reports that he is no longer taking his Coumadin. Related Data Home Medications Medication Instructions Recorded Confirmed atorvastatin [Lipitor] 80 mg PO HS 11/08/15 10/31/17 clopidogrel [Plavix] 75 mg PO DAILY 11/08/15 10/31/17 lisinopril 10 mg PO DAILY 11/08/15 10/31/17 metformin 500 mg PO DAILY 11/08/15 10/31/17 nitroglycerin [Nitrostat] 0.4 mg SUBLINGUAL DIRECTED 11/08/15 10/31/17 acetaminophen [Tylenol] 650 mg PO Q6H PRN PRN tab 11/11/15 10/31/17 blood sugar diagnostic [Test #100 strip 11/01/17 Strips] insulin aspart U-100 [Novolog 5 units SUB-Q 0800,1200,1700 #5 pen 11/01/17 Flexpen U-100 Insulin] insulin glargine [Lantus Solostar 35 units SUB-Q HS #5 pen 11/01/17 U-100 Insulin] isosorbide mononitrate 120 mg PO DAILY #60 tabcr 11/01/17 warfarin [Coumadin] 7.5 mg PO MOWEFR@1999 #100 tab 11/01/17 warfarin [Coumadin] 10 mg PO SUTUTHSA@1999 #100 tab 11/01/17 metoprolol succinate 100 mg PO DAILY 90 Days #90 tab-cap 12/19/17 Previous Rx's Medication Instructions Recorded acetaminophen [Tylenol] 650 mg PO Q6H PRN PRN tab 11/11/15 blood sugar diagnostic [Test #100 strip 11/01/17 Strips] insulin aspart U-100 [Novolog 5 units SUB-Q 0800,1200,1700 #5 pen 11/01/17 Flexpen U-100 Insulin] insulin glargine [Lantus Solostar 35 units SUB-Q HS #5 pen 11/01/17 U-100 Insulin] isosorbide mononitrate 120 mg PO DAILY #60 tabcr 11/01/17 warfarin [Coumadin] 7.5 mg PO MOWEFR@1999 #100 tab 11/01/17 warfarin [Coumadin] 10 mg PO SUTUTHSA@2000 #100 tab 11/01/17 metoprolol succinate 100 mg PO DAILY 90 Days #90 tab-cap 12/19/17 Allergies Allergy/AdvReac Type Severity Reaction Status Date / Time No Known Allergies Allergy Unverified 01/25/20 14:48 General Stated Complaint: GenMedical NADEEM: 3 Review of Systems <NERI Tobar - Last Filed: 01/26/20 07:18> Constitutional Constitutional: Denies fatigue, Denies fever(s) and Denies weakness Eyes Eyes: Denies change in vision ENT Ears, Nose, Mouth, and Throat: Denies neck pain Cardiovascular Cardiovascular: Denies chest pain and Denies dyspnea Respiratory Respiratory: Denies cough and Denies dyspnea Gastrointestinal Gastrointestinal: Denies abdominal pain, Denies nausea and Denies vomiting Genitourinary Genitourinary: Denies dysuria Musculoskeletal Musculoskeletal: Denies back pain, Denies neck pain and Reports tingling (Baseline) Integumentary/Breasts Skin/Breast: Denies rash Neurologic Neurologic: Reports tingling (Baseline) and Denies weakness Endocrine Endocrine: Denies fatigue Hematologic/Lymphatic Hematologic/Lymphatic: Reports easy bleeding and Reports easy bruising PFSH <NERI Tobar - Last Filed: 01/26/20 07:18> Medical History Diabetes mellitus type 2 in nonobese DVT (deep venous thrombosis) Hyperlipidemia Non-ST elevation (NSTEMI) myocardial infarction PVD (peripheral vascular disease) STEMI (ST elevation myocardial infarction) Tobacco use disorder Social History Smoking/Tobacco Use Status: Former Tobacco Use Alcohol Intake: never Drug use: Socially Substance use type: marijuana Do you feel safe at home: Yes Do you feel safe in your relationship?: Yes Exam <NERI Tobar - Last Filed: 01/26/20 07:18> Const General: cooperative, healthy appearing and in distress Orientation: alert, awake and oriented x3 HENMT Head: normal to inspection, normocephalic and atraumatic Face and sinus: normal facial exam Mouth: moist mucous membranes Throat: posterior oropharynx normal Eyes Conjunctivae: conjunctivae normal Sclera: sclerae normal Neck Neck: normal visual inspection, full ROM, trachea midline, supple and nontender Resp Effort & Inspection: normal respiratory effort and able to speak in complete se ntences Auscultation: clear to auscultation bilaterally Cardio Rate: regular rate Rhythm: regular rhythm GI Palpation: soft, not firm, no guarding, not rigid and nontender Auscultation: normal bowel sounds Penis: normal penis Meatus: meatus normal Scrotum: scrotum normal Testes: normal Back/Spine/Pelvis Back: No back tenderness Skin General skin exam: no rashes or lesions noted Neuro General: patient alert, patient awake, moves all extremities and no focal motor deficits Cognition: normal cognition Speech: speech normal Gait: antalgic Motor: muscle tone normal throughout Sensory Exam: no sensory deficits noted Extrem Right upper extremity: normal to inspection, full ROM and normal capillary refill Left upper extremity: normal to inspection, full ROM and normal capillary refill Right lower extremity: normal to inspection and normal capillary refill Left lower extremity: normal to inspection and normal capillary refill Other: Feet are warm, capillary refill appears normal. Unable to obtain distal pulses using Doppler. Psych Appearance: grossly normal Mental Status: mental status grossly normal Course <NERI Tobar - Last Filed: 01/26/20 07:18> Vital Signs Vital signs: Vital Signs Temperature 36.4 C L 01/25/20 14:42 Pulse 99 H 01/25/20 14:42 Respiratory Rate 18 01/25/20 14:42 Blood Pressure 138/75 01/25/20 14:42 Pulse Oximetry 97 01/25/20 14:42 Temperature 36.4 C L 01/25/20 14:42 Temperature Source Tympanic 01/25/20 14:42 Pulse 84 01/25/20 15:35 Respiratory Rate 26 H 01/25/20 15:35 Respiratory Effort 01/25/20 15:13 Blood Pressure 166/104 H 01/25/20 15:35 Blood Pressure Position Sitting 01/25/20 14:42 Pulse Oximetry 100 01/25/20 15:35 Oxygen Delivery Method Room Air 01/25/20 15:35 Oxygen Flow Rate 0 01/25/20 15:35 Pain Level 8 01/25/20 15:49 Lab/Test Results Lab/Test Results: Laboratory Tests Range/Units 01/25/20 01/25/20 01/25/20 14:59 15:00 15:00 WBC (4.4-10.8) 10^3/uL 9.90 RBC (4.36-5.78) 10^6/uL 3.79 L Hgb (13.5-17.5) g/dL 11.6 L Hct (40.0-50.0) % 36.0 L MCV (80-95) fL 95.0 MCH (27.0-33.0) pg 30.6 MCHC (32.0-36.0) % 32.2 RDW (11.8-14.1) % 13.4 Plt Count (130-400) 10^3/uL 275 D MPV (8.0-11.0) fL 10.6 Immature Gran % 1.1 Neutrophils % 72.2 Lymphocytes % 14.1 Monocytes % 8.8 Eosinophils % 3.1 Basophils % 0.7 Nucleated RBC % % 0 Absolute Neutrophils (1.2-6.7) 10^3/uL 7.14 H Absolute Lymphocytes (1.2-3.4) 10^3/uL 1.40 Absolute Monocytes (0.1-0.8) 10^3/uL 0.87 H Absolute Eosinophils (0.0-0.7) 10^3/uL 0.31 Absolute Basophils (0.0-0.2) 10^3/uL 0.07 PT (9.3-11.0) sec 11.5 H INR (0.9-1.1) 1.1 APTT (21.0-31.4) sec 22.2 Sodium (136-145) mmol/L 136 Potassium (3.5-5.1) mmol/L 4.9 Chloride (98-107) mmol/L 107 Carbon Dioxide (21.0-32.0) mmol/L 14.4 L Anion Gap (3-11) mmol/L 14.6 H BUN (7-18) mg/dL 66 H Creatinine (0.70-1.30) mg/dL 3.37 H Estimated GFR/1.73 m2 (mL/min/1.73m2) 18.13 Glucose (74-106) mg/dL 209 H Calcium (8.5-10.1) mg/dL 8.6 Total Bilirubin (0.2-1.0) mg/dL 0.7 AST (15-37) U/L 15 ALT (16-63) U/L 21 Alkaline Phosphatase (46-116) U/L 67 Troponin I (<0.06) ng/mL < 0.05 Total Protein (6.4-8.2) g/dL 7.8 Albumin (3.4-5.0) g/dL 3.3 L Critical Care Time <NERI Tobar - Last Filed: 01/26/20 07:18> Critical Care Time Critical Care Time: Yes Total Critical Care Time: 35 Attestation: Upon my evaluation, this patient had a high probability of clinically significant, life-threatening deterioration due to their current medical conditions, which required my direct attention, intervention, and personal management. I have personally provided greater than 30 minutes of critical care time exclusive of the time spend on separately billable procedures. Time includes obtaining a history, examining the patient, pulse oximetry, review of laboratory data, radiology results, discussion with consultants, arranging urgent treatment with development of a management plan, evaluation of patient's response to treatment, and monitoring for potential decompensation. Interventions were performed as documented above. Sign Out <NERI Tobar - Last Filed: 01/26/20 07:18> Sign Out Data: Sign Out Comment: Patient signed out to NERI Blackburn. At time of signout patient was at CT receiving CT abdomen pelvis without contrast. Last updated by Silverio Good PA at 01/25/20 16:12
[2020-01-25 16:40] VITALS: BP 140/88; PULSE 88; RESP 15; O2SAT 99
[2020-01-25] MEDS: Normal Saline 1,000 ML 1000 ML IV (16:41)
--- NOTE | 2020-01-25 17:51 | DI.VRAD_ITS ---
PROCEDURE INFORMATION: Exam: CT Abdomen And Pelvis Without Contrast Exam date and time: 01/25/2020 4:08 PM Age: 69 years old Clinical indication: Abdominal tenderness; Prior surgery; Surgery date: <1 month; Surgery type: Aneurism repair TECHNIQUE: Imaging protocol: Computed tomography of the abdomen and pelvis without contrast. Radiation optimization: All CT scans at this facility use at least one of these dose optimization techniques: automated exposure control; mA and/or kV adjustment per patient size (includes targeted exams where dose is matched to clinical indication); or iterative reconstruction. COMPARISON: CT ABDOMEN PELVIS WO 01/16/2020 6:26 PM FINDINGS: Liver: Mild hepatic steatosis. Gallbladder and bile ducts: Nonspecific stable hyperdense material within the gallbladder lumen, possibly layering gallbladder sludge versus concentrated bile. No radiopaque gallstone or acute cholecystitis. Pancreas: Unremarkable. No ductal dilation. Spleen: Calcified splenic granuloma. Adrenals: Unremarkable. Kidneys and ureters: Chronic bilateral renal scarring. Stable nonspecific subcentimeter right renal cysts, difficult to properly characterize on this study. Stable mild right perinephric stranding. Stomach and bowel: Colonic diverticulosis without evidence of acute diverticulitis. No evidence of bowel obstruction. Appendix: No evidence of appendicitis. Intraperitoneal space: No free air. Vasculature: There is redemonstration of aorta bi-iliac stent graft with the superior origin at the level of superior mesenteric artery and inferior extent within the bilateral common and external iliac arteries. There is redemonstration of a 4.6 x 4.9 x 8.1 cm (TV x AP x CC) infrarenal abdominal aortic aneurysm spanning L3-L5, similar in size when compared with the previous study. There is redemonstration of a defect within the graft material with surrounding intraluminal hyperdensity within the abdominal aortic aneurysm, suspicious for an endoleak. Findings have not significantly changed since the recent study. No periaortic soft tissue inflammation. Again seen are postoperative changes of bifemoral bypass, with redemonstration 1 cm hyperdense focus in the right lower quadrant, possibly reflecting hyperdense clot (image 74, series 2). Multiple pelvic phleboliths. Lymph nodes: No suspicious lymphadenopathy. Urinary bladder: Unremarkable as visualized. Reproductive: Unremarkable as visualized. Bones/joints: No acute fracture. Degenerative changes of the lumbar spine. Soft tissues: Fat containing right inguinal hernia. There is redemonstration of intramuscular hematoma within the right iliopsoas muscle and right iliacus muscle, minimally decreased in size. Postsurgical clips overlying the right lower quadrant. IMPRESSION: 1. Aortic bi-iliac stent graft with redemonstration of a defect within the infrarenal abdominal aortic aneurysm with surrounding intraluminal hyperdensity, suspicious for a type 3 endoleak. Findings are not significantly changed when compared with the recent study from 01/16/2020. 2. Bifemoral bypass with stable small hyperdense focus within the right lower quadrant, possibly representing hyperdense clot. 3. Slight interval decrease in intramuscular hematoma in the right iliopsoas muscle and right iliacus muscle. 4. No new acute abnormality or significant interval change. Dictated and Authenticated by: Maryjo Choudhury MD. Ordering:DESTINI Sawyer MD
[2020-01-25 17:59] VITALS: BP 174/79; PULSE 81; RESP 15; O2SAT 97
[2020-01-25 18:03] LABS: Bilirubin Negative (Negative); Blood Trace-lysed (Negative); Clarity Clear (Clear); Glucose 100 mg/dL (Negative); Ketones Negative (Negative); Leukocyte Esterase Negative (Negative); Nitrite Negative (Negative); Specific Gravity 1.025 (1.005-1.025); Urobilinogen 0.2 EU/dL (Up TO 0.2); pH 5.5 (5-8)
[2020-01-25 18:15] LABS: Bacteria Negative HPF (Negative); C & S Indicated? No; Casts 0-2 Hyaline LPF (Negative); Crystals Negative HPF (Negative); Epithelial Cells Negative HPF (Negative); Mucus Trace (Negative); RBC Negative HPF (0-2); WBC Negative HPF (0-5)
[2020-01-25 18:22] LABS: Troponin I < 0.05 ng/mL (<0.06)
[2020-01-25 19:26] VITALS: BP 150/79; PULSE 82; RESP 16; O2SAT 94
[2020-01-25 20:20] VITALS: BP 171/70; PULSE 76; RESP 20; O2SAT 94
== END 2020-01-25 20:30 | disposition short-term general hospital (02) ==
PROVIDERS: Physician Assistant; Emergency Provider Physician Assistant; PCP Family Medicine
DX: T82.330A Leakage of aortic (bifurcation) graft (replacement), initial encounter (principal); N17.9 Acute kidney failure, unspecified; N18.9 Chronic kidney disease, unspecified; I73.9 Peripheral vascular disease, unspecified; Z79.4 Long term (current) use of insulin; E11.9 Type 2 diabetes mellitus without complications; Z95.820 Peripheral vascular angioplasty status with implants and grafts
CPT/HCPCS: 36415; 80053; 86850; 86900; 86901; 93005; 96361; 96374; 96376; 99291; 74176; 81003; 81015; 84484; 85025; 85610; 85730; 93010

== ENCOUNTER 2020-02-13 15:21 | Emergency (ER) | payer OTHER, SELFPAY ==
[2020-02-13] VITALS (65 sets, daily range): BP systolic 84–152; BP diastolic 59–74; PULSE 77–112; RESP 4–26; TEMP 36.7–37; O2SAT 80–99
--- NOTE | 2020-02-13 15:26 | W.ED.GENAD ---
Discharge Plan Discharge Details Chief Complaint: GenMedical Primary Care Provider: Douglas Hernandez ED Provider: Pamela Abdi Home Meds and New Rx's Prescriptions: No Action metoprolol succinate 100 MG tablet extended release 24 hr 100 mg PO DAILY 90 Days Qty: 90 RF: 4 atorvastatin [Lipitor] 80 MG tablet 80 mg PO HS RF: 0 clopidogrel [Plavix] 75 MG tablet 75 mg PO DAILY RF: 0 lisinopril 10 MG tablet 10 mg PO DAILY RF: 0 nitroglycerin [Nitrostat] 0.4 MG tablet, sublingual 0.4 mg Sublingual DIRECTED RF: 0 acetaminophen [Tylenol] 325 MG tablet 650 mg PO Q6H PRN PRNRF: 0 isosorbide mononitrate 60 MG tablet extended release 24 hr 120 mg PO DAILY Qty: 60 RF: 3 (DME) blood sugar diagnostic [Blood Glucose Test] 1 EACH strip 1 ea Sub-Q AC Qty: 100 RF: 3 warfarin 2.5 MG tablet 7.5 mg PO .///// RF: 0 warfarin 5 MG tablet 5 mg PO .FRIDAY RF: 0 Lantus Solostar U-100 Insulin 300 UNITS/3 ML insulin pen 26 units Sub-Q HS RF: 0 aspirin [Aspir-Low] 81 mg Tablet,Delayed Release (Dr/Ec) 81 mg PO DAILY RF: 0 Victoza 2-Elias 0.6 mg/0.1 mL (18 mg/3 mL) Pen Injector 1.2 mg SUBCUT DAILY RF: 0 oxycodone 5 mg Tablet 5 mg PO Q6H PRNRF: 0 Discharge Data Discharge Date/Time-TO BE ENTERED AT DEPARTURE: 02/13/20 21:30 Medical Decision Making <NERI Tobar - Last Filed: 02/13/20 15:55> 69-year-old gentleman with complicated past medical history including 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 Subsequently discharged home with a wound VAC and now has had bleeding around that area. Records obtained from [facility] and explained in my HPI. Plan is to obtain IV access, obtain CBC, CMP, coags, type and cross. Patient reports mild 1 out of 10 discomfort to his right lower extremity which appears to be at his baseline, otherwise denies any recent illness, trauma, any other symptoms. Patient with known renal disease, cannot obtain CT imaging with contrast. He currently appears hemodynamically stable. Pulse in the 90s. Blood pressure 152/63. He is afebrile. Once his laboratory values have resulted, vascular surgery at [facility] will need to be consulted. At time of signout to VIANNEY Abdi, laboratory values have been drawn but not resulted. Medical Records Medical records reviewed: Yes I reviewed the patient's medical records. <Pamela Abdi - Last Filed: 02/16/20 08:23> Care signed out to me by outgoing provider NERI Ferro please see his original HPI and physical exam. Bedside report was given to me and patient details and case were discussed. He is a 69-year-old male with a complicated history of vascular surgery done over the last month at [facility]. He was recently released from hospital on Friday of last week. He has a wound VAC from a fasciotomy to his right inner calf which started bleeding today. This is what brings him in today. He is hemodynamically stable at the time of this dictation, is alert and oriented x3. At this time his labs including PT and INR pending. I will wait until PT and INR return before taking the wound VAC off. Also consult with vascular surgery. 1623: [facility] transfer center paged. 1626: INR came back critically high at 4.3, upon review of [facility] records on 02/09/2020 his INR was 2.4 PT was 27.0., Today PT is 41.5 seconds APTT is 45.2 seconds. 1700: Spoke with Dr. Llanos with Vascular surgery who does recommend taking wound vac off, wet to dry dressing, and holding warfarin and having INR redrawn on Friday. 1722: Wound vac removed, multiple clots palm sized were removed from wound. there is an active area of bleeding from the wound bed, bright red blood. Cartery attempted with silver nitrate which was unsuccessful. Surgicel foam placed to wound, 4x4's and Kerlix dressing applied. Will watch for bleeding through and call [facility] back if needed. 1729: Informed by greenhouse staff, dressing beginning to have blood noted on it, [facility] Dr Llanos re-paged. 1747: Repeat CBC obtained and resulted which shows a decrease in the hemoglobin hematocrit from 10.7 and 34.72 -9.4 and 30.2 after 3 hours. Hemoglobin has dropped one-point and hematocrit has dropped 4 points. At this time I do feel my recommendation would be to transfer back to [facility] for urgent evaluation by vascular surgery. Patient is still mentating well, 1804: At this time vitamin K 2.5 mg p.o. ordered for warfarin reversal due to drop in hemoglobin hematocrit, additional interventions may be needed including local TXA to the bleed, FFP infusion, versus prothrombin complex. 35 units/kg for a INR of 4-6. This brings his dose to 3450 units IV piggyback. Will discuss this with vascular surgery prior to ordering. Discussed patient case in details with ER attending Dr. Jose Mcgee who is at bedside for patient evaluation. At this time pressure dressing is on the extremity there is no breakthrough of the Coban but there is breakthrough of the Kerlix and Surgicel foam dressing. 183: Bleeding is through the Coban, TXA 500 mg applied directly to the bleed site, covered by 4 x 4's Kerlix dressing wrapped tightly. Prothrombin complex IV ordered by MD Mcgee ER attending. Still awaiting phone call back from vascular surgery. Patient denies any lightheadedness at this time. His blood pressure somewhat soft heart rate 108, blood pressure is 105/74. Normal saline at 75 mils an hour ordered. 1834: [facility] Vascular surgery re-paged. 1851: At this time there is no bleeding through the gauze thus far status post the TXA application. However patient blood pressure has dropped to 96/63, heart rate 105. He is asleep at this time. O2 sat is 93% room air. Normal saline at approximately 75 mils an hour at this time. 185: Spoke with Dr. Llanos again regarding patient, he has agreed to evaluate patient in the ED for possible complications, he does agree to reversal of warfarin with FFP. Dr. Llanos does not believe his BP is from blood loss. Dr. Luis E Valdes from ED is accepting the patient. 1934: Patient is requesting oxycodone 10 mg which he usually takes. No further bleeding noted after TXA application. 2003: Call made to patients daughter Amalia, regarding plan of care to transfer patient to [facility] ED for vascular surgery consult. 2021: On reevaluation the 4 x 4's and Kerlix gauze now has some soaked through blood, started approximately 5 minutes ago. First unit of packed red blood cells is up and it is infusing at this time. FFP is on the way. 2058: EMS here for patient transport. FFP is infusing without difficulty. 2109: Gauze dressing re-inforced with another boat of 4x4's and kerlix, called and spoke with Son Daniele and informed him of patient's transfer, verbalized understanding. HPI <NERI Tobar - Last Filed: 02/13/20 15:55> General Mode of arrival: EMS. Date/Time Provider Initiated Documentation: 02/13/20 15:26. Limitations to Documentation: no limitations. Information obtained by: patient. HPI Narrative: This is a 69-year-old gentleman who presents to the ER via ambulance for bleeding status post surgical procedure. Patient states that he was discharged from [facility] on Friday, had a femoral bypass repair, and then all the fun began. He is not really able to tell me the procedure was performed at [facility]. He has a incision to his right lower extremity that is closed with leonardo as well as a wound VAC. He states that he has had pain 1 out of 10 since the procedure, this is unchanged. Today he noticed that the dressing and wound VAC was a bloody. He has no additional concerns or complaints at this time. He denies any injury or trauma to the area. He denies headache, chest pain, generalized weakness, shortness of breath, abdominal pain. He has a past medical history that includes diabetes, DVT, hyperlipidemia, NSTEMI, PVD, STEMI, former smoker. He was most recently evaluated in our ER last month [facility] his [facility] graft. Patient is anticoagulated. I was able to review the records from [facility]. It appears that on 01-25 he had an open thrombectomy of the prior femoral-femoral bypass graft, of the bilateral common femoral and profunda Monzon arteries, left axillary artery to left femoral artery bypass graft. Then on 01-31-20 he had a lobectomy of the right SFA-PT, thrombectomy of the right popliteal and PT arteries, lobectomy of the right SFA, revision with patch angioplasty of the proximal anastomosis of the right SFA-PT bypass. Debridement of medial and lateral right fasciotomies, wound VAC placement to medial and lateral right fasciotomies. On 02-01-20 a closure of the RLE fasciotomy, VAC placement RLE medial fasciotomy, evacuation of hematoma at right SFA exposure. Related Data Home Medications Medication Instructions Recorded Confirmed atorvastatin [Lipitor] 80 mg PO HS 11/08/15 02/13/20 clopidogrel [Plavix] 75 mg PO DAILY 11/08/15 02/13/20 lisinopril 10 mg PO DAILY 11/08/15 02/13/20 nitroglycerin [Nitrostat] 0.4 mg SUBLINGUAL DIRECTED 11/08/15 02/13/20 acetaminophen [Tylenol] 650 mg PO Q6H PRN PRN tab 11/11/15 02/13/20 blood sugar diagnostic [Test #100 strip 11/01/17 Strips] isosorbide mononitrate 120 mg PO DAILY #60 tabcr 11/01/17 02/13/20 metoprolol succinate 100 mg PO DAILY 90 Days #90 tab-cap 12/19/17 02/13/20 Lantus Solostar U-100 Insulin 26 units SUB-Q HS 02/13/20 02/13/20 aspirin [Aspir-Low] 81 mg PO DAILY 02/13/20 02/13/20 liraglutide [Victoza 2-Elias] 1.2 mg SUBCUT DAILY 02/13/20 02/13/20 oxycodone 5 mg PO Q6H PRN 02/13/20 02/13/20 warfarin 5 mg PO .Friday02/13/20 02/13/20 warfarin 7.5 mg PO ./MO//WE/TH/SA 02/13/20 02/13/20 Previous Rx's Medication Instructions Recorded acetaminophen [Tylenol] 650 mg PO Q6H PRN PRN tab 11/11/15 blood sugar diagnostic [Test #100 strip 11/01/17 Strips] isosorbide mononitrate 120 mg PO DAILY #60 tabcr 11/01/17 metoprolol succinate 100 mg PO DAILY 90 Days #90 tab-cap 12/19/17 Allergies Allergy/AdvReac Type Severity Reaction Status Date / Time No Known Allergies Allergy Unverified 02/13/20 15:34 General Stated Complaint: GenMedical NADEEM: 2 Review of Systems <NERI Tobar - Last Filed: 02/13/20 15:55> Constitutional Constitutional: Denies fatigue, Denies fever(s) and Denies weakness ENT Ears, Nose, Mouth, and Throat: Denies neck pain Cardiovascular Cardiovascular: Denies chest pain and Denies dyspnea Respiratory Respiratory: Denies cough and Denies dyspnea Gastrointestinal Gastrointestinal: Denies abdominal pain, Denies nausea and Denies vomiting Musculoskeletal Musculoskeletal: Denies neck pain and Reports tingling (Baseline neuropathy) Integumentary/Breasts Skin/Breast: Denies rash Neurologic Neurologic: Denies weakness Endocrine Endocrine: Denies fatigue Hematologic/Lymphatic Hematologic/Lymphatic: Reports easy bleeding and Reports easy bruising PFSH <NERI Tobar - Last Filed: 02/13/20 15:55> Medical History Diabetes mellitus type 2 in nonobese DVT (deep venous thrombosis) Hyperlipidemia Non-ST elevation (NSTEMI) myocardial infarction PVD (peripheral vascular disease) STEMI (ST elevation myocardial infarction) Tobacco use disorder Social History Smoking/Tobacco Use Status: Former Tobacco Use Alcohol Intake: never Drug use: Socially Substance use type: marijuana Do you feel safe at home: Yes Do you feel safe in your relationship?: Yes Exam <NERI Tobar - Last Filed: 02/13/20 15:55> Const General: cooperative, healthy appearing, comfortable and no acute distress Orientation: alert, awake and oriented x3 HENMT Head: normal to inspection, normocephalic and atraumatic Mouth: moist mucous membranes Eyes Conjunctivae: conjunctivae normal Sclera: sclerae normal Neck Neck: normal visual inspection, full ROM, trachea midline and supple Resp Effort & Inspection: normal respiratory effort and able to speak in complete sentences Auscultation: clear to auscultation bilaterally Cardio Rate: regular rate Rhythm: regular rhythm GI Palpation: soft, not firm, no guarding, not rigid and nontender Auscultation: normal bowel sounds Back/Spine/Pelvis Back: No back tenderness Skin General skin exam: no rashes or lesions noted Other: There are well-healing, well approximated surgical incisions to the lateral right lower extremity, bilateral groin, left shoulder, right lower quadrant-flank. All wounds are nontender, without erythema, warmth, drainage. Neuro General: patient alert, patient awake, patient oriented x3, moves all extremities and no focal motor deficits Cognition: normal cognition Sensory Exam: no sensory deficits noted Extrem Other: Right lower extremity, posterior calf region, there is a wound VAC in place, there appears to be 3 separate Tegaderms around the wound. The Tegaderm dressing is filled with blood, I see some clotting but I do not appreciate any obvious pulsatile flow. Difficult to say whether he is actively bleeding or if there has been a small amount of pressure or tamponade secondary to the dressings. I was able to find and susanne a right lower extremity Doppler pulse. Unable to obtain left lower extremity Doppler pulse. Psych Appearance: grossly normal Mental Status: mental status grossly normal Sign Out <NERI Tobar - Last Filed: 02/13/20 15:55> Sign Out Data: Sign Out Comment: Awaiting laboratory values and then will need vascular surgery consultation. Last updated by Silverio Good PA at 02/13/20 15:56
[2020-02-13 15:55] LABS: Abs Immature Grans 0.06 10^3/uL (0.0-0.06); Absolute Basophil Count 0.05 10^3/uL (0.0-0.2); Absolute Eosinophil Count 0.34 10^3/uL (0.0-0.7); Absolute Lymphocyte Count 1.49 10^3/uL (1.2-3.4); Absolute Monocyte Count 0.85 10^3/uL (0.1-0.8); Basophils % 0.6; Eosinophils % 4.1; HCT 34.7 % (40.0-50.0); HGB 10.7 g/dL (13.5-17.5); Immature Grans % 0.7; MCH 30.1 pg (27.0-33.0); MCHC 30.8 % (32.0-36.0); MCV 97.5 fL (80-95); MPV 10.3 fL (8.0-11.0); Monocytes % 10.3; Neutrophils % 66.3; Nucleated RBC 0 %; Platelet Count 387 10^3/uL (130-400); RBC 3.56 10^6/uL (4.36-5.78); RDW 15.6 % (11.8-14.1); RDW-SD 55.9 fL; WBC 8.29 10^3/uL (4.4-10.8)
[2020-02-13 16:11] LABS: ALT 32 U/L (16-63); AST 30 U/L (15-37); Albumin 2.8 g/dL (3.4-5.0); Alkaline Phosphatase 73 U/L (46-116); Anion Gap 11.1 mmol/L (3-11); BUN 33 mg/dL (7-18); Bilirubin, Total 0.6 mg/dL (0.2-1.0); CO2 24.9 mmol/L (21.0-32.0); CREATININE 1.85 mg/dL (0.70-1.30); Calcium 8.3 mg/dL (8.5-10.1); Chloride 104 mmol/L (98-107); Estimated GFR 36.22 (mL/min/1.73m2); Glucose 130 mg/dL (74-106); Potassium 4.3 mmol/L (3.5-5.1); Sodium 140 mmol/L (136-145); Total Protein 7.4 g/dL (6.4-8.2)
[2020-02-13 16:20] LABS: PTT Activated 45.2 sec (21.0-31.4); Prothrombin Time 41.5 sec (9.3-11.0)
[2020-02-13 16:23] LABS: INR 4.3 (0.9-1.1)
[2020-02-13 17:40] LABS: HCT 30.2 % (40.0-50.0); HGB 9.4 g/dL (13.5-17.5); MCH 29.7 pg (27.0-33.0); MCHC 31.1 % (32.0-36.0); MCV 95.6 fL (80-95); MPV 9.8 fL (8.0-11.0); Platelet Count 346 10^3/uL (130-400); RBC 3.16 10^6/uL (4.36-5.78); RDW 15.4 % (11.8-14.1); RDW-SD 54.4 fL; WBC 10.36 10^3/uL (4.4-10.8)
[2020-02-13] MEDS: Phytonadione 5 MG TABLET 2.5 MG PO (18:14)
[2020-02-13] MEDS: Gelatin SPONGE 12-7 MM PKT 1 EACH TP (18:15)
[2020-02-13] MEDS: Tranexamic Acid 1,000 MG/10 ML VIAL 500 MG NS (18:20)
[2020-02-13] MEDS: Normal Saline 1,000 ML 75 ML IV (19:00)
[2020-02-13] MEDS: oxyCODONE 5 MG TAB PO ×2 (19:37→19:57)
[2020-02-13 20:22] LABS: HCT 29.1 % (40.0-50.0); HGB 9.2 g/dL (13.5-17.5); MCH 30.2 pg (27.0-33.0); MCHC 31.6 % (32.0-36.0); MCV 95.4 fL (80-95); MPV 10.2 fL (8.0-11.0); Platelet Count 359 10^3/uL (130-400); RBC 3.05 10^6/uL (4.36-5.78); RDW 15.5 % (11.8-14.1); RDW-SD 53.5 fL; WBC 12.85 10^3/uL (4.4-10.8)
--- NOTE | 2020-02-13 23:09 | NUR.NOTE ---
lower right leg with an open wound with drain that was hooke to a wound vac. the vac was D/c by home health today. on arrival [facility] the tegaderm had a blood clott around the skin and it was leaking to the diaper and other drsng around the leg. wound was at first dressed with a gel sponge and pressure drsng . it beame saturated and was removed . the nest dressing was with the med soaked sponge as orderd. that too began to leak but was reenforced with guaze .Nursing Note:
== END 2020-02-13 21:30 | disposition short-term general hospital (02) ==
LOC: ER 16:27
PROVIDERS: Physician Assistant; Emergency Provider Registered Nurse Emergency; PCP Family Medicine
DX: T82.332A Leakage of femoral arterial graft (bypass), initial encounter (principal); Y83.2 Surgical operation with anastomosis, bypass or graft as the cause of abnormal reaction of the patient, or of later complication, without mention of misadventure at the time of the procedure; R79.1 Abnormal coagulation profile; T45.515A Adverse effect of anticoagulants, initial encounter; Z79.01 Long term (current) use of anticoagulants; E11.22 Type 2 diabetes mellitus with diabetic chronic kidney disease; Z79.4 Long term (current) use of insulin; N18.9 Chronic kidney disease, unspecified; Z86.718 Personal history of other venous thrombosis and embolism
CPT/HCPCS: 36415; 36430; 80053; 85027; 86850; 86900; 86901; 86920; 99285; 85025; 85610; 85730; P9016; P9059

== ENCOUNTER 2020-06-05 07:31 | Emergency (ER) | payer MEDICARE, OTHER, SELFPAY ==
[2020-06-05] VITALS (14 sets, daily range): BP systolic 92–129; BP diastolic 45–83; PULSE 94–106; RESP 13–30; TEMP 37.1; O2SAT 89–98
--- NOTE | 2020-06-05 07:30 | RT.EKG_ITS ---
APPROVED REPORT Exam: Resting ECG Patient Location: E HR:97 bpm ECG Measurements Heart Rate 97 AXIS ND 174 P 62 QRSd 101 QRS 60 QT 385 T 11 QTc 504 Conclusion Sinus tachycardia...rate> 99 Atrial premature complex...SV complex w/ short R-R interval Sinus pause...long R-R interval, normal QRSd Prolonged QT interval...QTc >500mS sinus rhythm at 97, normal axis, occasional PAC, no STEMI, prolonged QTC at 504, nondiagnostic EKG I have reviewed and interpreted ECG and agree with software generated interpretation.
--- NOTE | 2020-06-05 07:45 | DI.US_ITS ---
EXAM: US LOWER EXTREMITY VENOUS RT CLINICAL HISTORY: cold right foot, no pulses TECHNIQUE: Right lower extremity venous ultrasound performed using grayscale, color-flow, and spectr al Doppler analysis. COMPARISON: No exams were available for comparison FINDINGS: The right common femoral, femoral and popliteal veins demonstrate normal compressibility, augmentatio n, and color Doppler. The posterior tibial veins are patent. The saphenofemoral junction is unremark able. There is no evidence of a Schuster cyst. The soft tissues are unremarkable. Note is made of occl usion of the distal right femoral artery into the popliteal artery. IMPRESSION: 1. No DVT. 2. 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 3. Findings were discussed with the emergency department on the date of the examination. DATA REPOSITORY:
--- NOTE | 2020-06-05 07:55 | ED.GENADUL_ITS ---
Discharge Plan Discharge Details Chief Complaint: Vascular Primary Care Provider: Douglas Hernandez ED Provider: Nishi Mcgee Home Meds and New Rx's Prescriptions: No Action metoprolol succinate 100 MG tablet extended release 24 hr 100 mg PO DAILY 90 Days Qty: 90 RF: 4 atorvastatin [Lipitor] 80 MG tablet 80 mg PO HS RF: 0 clopidogrel [Plavix] 75 MG tablet 75 mg PO DAILY RF: 0 lisinopril 10 MG tablet 10 mg PO DAILY RF: 0 nitroglycerin [Nitrostat] 0.4 MG tablet, sublingual 0.4 mg Sublingual DIRECTED RF: 0 acetaminophen [Tylenol] 325 MG tablet 650 mg PO Q6H PRN PRNRF: 0 isosorbide mononitrate 60 MG tablet extended release 24 hr 120 mg PO DAILY Qty: 60 RF: 3 (DME) blood sugar diagnostic [Blood Glucose Test] 1 EACH strip 1 ea Sub-Q AC Qty: 100 RF: 3 aspirin 325 mg Tablet 325 mg PO DAILY RF: 0 omeprazole 20 mg Capsule,Delayed Release(Dr/Ec) 20 mg PO BID RF: 0 hydroxyzine HCl 25 mg Tablet 25 mg PO QHS PRNRF: 0 rivaroxaban 20 mg Tablet 20 mg PO DAILY RF: 0 Lantus Solostar U-100 Insulin 300 UNITS/3 ML insulin pen 32 units Sub-Q HS RF: 0 Victoza 2-Elias 0.6 mg/0.1 mL (18 mg/3 mL) Pen Injector 1.2 mg SUBCUT DAILY RF: 0 oxycodone 5 mg Tablet 5 mg PO Q6H PRNRF: 0 Discharge Data Discharge Date/Time-TO BE ENTERED AT DEPARTURE: 06/05/20 09:28 Medical Decision Making Ricardo Mcgee is a 70-year-old man with a history of diabetes, DVT, peripheral vascular disease, coronary artery disease who presented to the emergency department with right leg pain same as pain patient had in the past with arterial occlusion. On exam patient is uncomfortable but nontoxic-appearing. Normal examination of the left leg. Right leg with mild cyanosis of the toes and cap refill greater than 3 seconds, no palpable/dopplerable pulses PT/DP/popliteal, dopplerable right femoral pulses. Normal motor and sensation of the right leg. Concern for likely arterial occlusion, possible concurrent DVT. Exam/history at this time is not consistent with acute aortic pathology, sepsis, myositis, ACS. Plan for screening labs, ultrasound, vascular surgery consult at [facility]. Will hold CTA as history of kidney disease. Given patient with no dopplerable pulses in the right leg, patient requires acute emergent evaluation by vascular surgery, plan to attempt [facility] given closest appropriate facility. [id number]: [facility] [place] transfer center contacted for vascular surgery, awaiting callback [phone]: Callback from vascular at [facility] [place], patient presentation results relayed to Dr. Cavanaguh of vascular surgery, she requests heparin infusion without bolus given that patient took Xarelto at midnight last night, no CTA at this time given creatinine/GFR, request immediate transfer to [facility] [place] emergency department for further evaluation. Dr. Cavanaugh is accepting physician. Ultrasound shows incidental occlusion of the femoral/popliteal arteries, no DVT. Pt left ED with medics without issue. Clinical Impression: Presumed arterial occlusion Disposition: [facility] Medical Records Medical records reviewed: Yes I reviewed the patient's medical records. Lab Data Lab results reviewed: Yes I reviewed the patient's lab results. Labs: Laboratory Tests Range/Units 06/05/20 06/05/20 06/05/20 07:55 07:55 07:55 WBC (4.4-10.8) 10^3/uL 15.92 H RBC (4.36-5.78) 10^6/uL 4.46 Hgb (13.5-17.5) g/dL 13.4 L Hct (40.0-50.0) % 41.2 MCV (80-95) fL 92.4 MCH (27.0-33.0) pg 30.0 MCHC (32.0-36.0) % 32.5 RDW (11.8-14.1) % 13.4 Plt Count (130-400) 10^3/uL 161 MPV (8.0-11.0) fL 11.0 Immature Gran % 1.1 Neutrophils % 93.8 Lymphocytes % 0.9 Monocytes % 3.8 Eosinophils % 0.1 Basophils % 0.3 Nucleated RBC % % 0 Absolute Neutrophils (1.2-6.7) 10^3/uL 14.93 H Absolute Lymphocytes (1.2-3.4) 10^3/uL 0.14 L Absolute Monocytes (0.1-0.8) 10^3/uL 0.60 Absolute Eosinophils (0.0-0.7) 10^3/uL 0.02 Absolute Basophils (0.0-0.2) 10^3/uL 0.05 PT (9.3-11.0) sec 12.0 H INR (0.9-1.1) 1.2 H APTT (21.0-27.5) sec 27.5 Sodium (136-145) mmol/L 137 Potassium (3.5-5.1) mmol/L 3.6 Chloride (98-107) mmol/L 103 Carbon Dioxide (21.0-32.0) mmol/L 17.3 L Anion Gap (3-11) mmol/L 16.7 H BUN (7-18) mg/dL 42 H Creatinine (0.70-1.30) mg/dL 3.4 H Estimated GFR/1.73 m2 (mL/min/1.73m2) 17.89 Glucose (74-106) mg/dL 206 H Calcium (8.5-10.1) mg/dL 8.8 Total Bilirubin (0.2-1.0) mg/dL 0.7 AST (15-37) U/L 11 L ALT (16-63) U/L 13 L Alkaline Phosphatase (46-116) U/L 60 Total Protein (6.4-8.2) g/dL 7.8 Albumin (3.4-5.0) g/dL 3.2 L ECG Data Attestation: I personally reviewed and interpreted this ECG (s) as follows: Interpretation: EKG shows sinus rhythm at 97, normal axis, occasional PAC, no STEMI, prolonged QTC at 504, nondiagnostic EKG HPI General Mode of arrival: ambulatory . Date/Time Provider Initiated Documentation: 06/05/20 07:42 . Limitations to Documentation: no limitations . Information obtained by: patient, RN notes reviewed and old records reviewed . HPI Narrative: Ricardo Mcgee is a 70-year-old man with a history of peripheral vascular disease, hyperlipidemia, DVT in the past, insulin-dependent diabetes, coronary artery disease presenting to the emergency department with leg pain. Patient reports that at approximately midnight last night he began to feel pain in his right hip. Pain has progressed down the leg since onset and is now present from right hip into right foot. Patient reports that pain feels similar to when his circulation was blocked in the past. Patient reports that he has had multiple surgeries to his right leg for block circulation. Patient reports that these procedures were done at [facility] in the [place], most recently at the [place]. Patient reports that he takes Xarelto, Plavix, and aspirin. He reports that he takes Xarelto once daily at night, and last took this medication at midnight last night. He states that he takes clopidogrel and aspirin daily in the morning, but did not take these medications last night. Related Data Home Medications Medication Instructions Recorded Confirmed atorvastatin [Lipitor] 80 mg PO HS 11/08/15 06/05/20 clopidogrel [Plavix] 75 mg PO DAILY 11/08/15 06/05/20 lisinopril 10 mg PO DAILY 11/08/15 06/05/20 nitroglycerin [Nitrostat] 0.4 mg SUBLINGUAL DIRECTED 11/08/15 06/05/20 acetaminophen [Tylenol] 650 mg PO Q6H PRN PRN tab 11/11/15 06/05/20 blood sugar diagnostic [Test #100 strip 11/01/17 Strips] isosorbide mononitrate 120 mg PO DAILY #60 tabcr 11/01/17 06/05/20 metoprolol succinate 100 mg PO DAILY 90 Days #90 tab-cap 12/19/17 06/05/20 Lantus Solostar U-100 Insulin 32 units SUB-Q HS 02/13/20 06/05/20 liraglutide [Victoza 2-Elias] 1.2 mg SUBCUT DAILY 02/13/20 06/05/20 oxycodone 5 mg PO Q6H PRN 02/13/20 06/05/20 aspirin 325 mg PO DAILY 06/05/20 06/05/20 hydroxyzine HCl 25 mg PO QHS PRN 06/05/20 06/05/20 omeprazole 20 mg PO BID 06/05/20 06/05/20 rivaroxaban 20 mg PO DAILY 06/05/20 06/05/20 Previous Rx's Medication Instructions Recorded acetaminophen [Tylenol] 650 mg PO Q6H PRN PRN tab 11/11/15 blood sugar diagnostic [Test #100 strip 11/01/17 Strips] isosorbide mononitrate 120 mg PO DAILY #60 tabcr 11/01/17 metoprolol succinate 100 mg PO DAILY 90 Days #90 tab-cap 12/19/17 Allergies Allergy/AdvReac Type Severity Reaction Status Date / Time No Known Allergies Allergy Unverified 06/05/20 08:14 General Stated Complaint: Vascular NADEEM: 2 Review of Systems Narrative: Constitutional: denies fevers Eyes: denies eye pain ENT: denies ear pain, dental pain, sore throat Cardiovascular: denies chest pain, edema Respiratory: denies SOB, cough GI: denies abdominal pain, vomiting, diarrhea : denies flank pain MSK: denies back pain, neck pain, arthralgias, reports right leg myalgias from hip to foot Skin: denies rash Neuro: denies headaches, numbness, weakness PFSH Medical History Diabetes mellitus type 2 in nonobese DVT (deep venous thrombosis) Hyperlipidemia Non-ST elevation (NSTEMI) myocardial infarction PVD (peripheral vascular disease) STEMI (ST elevation myocardial infarction) Tobacco use disorder Social History Smoking/Tobacco Use Status: Former Tobacco Use Smoking risk assessment performed?: Yes Alcohol Intake: never Drug use: Socially Substance use type: marijuana Do you feel safe at home: Yes Do you feel safe in your relationship?: Yes Exam Narrative Exam Narrative: Constitutional: [id number], pleasant, conversing normally, appears uncomfortable HENT: head atraumatic/normocephalic/normal inspection, mucous membranes moist Eyes: conjunctiva normal, sclera normal, pupils 3mm b/l Neck: no stridor, normal ROM, trachea midline Chest: normal inspection Resp: normal work of breathing, speaking in full sentences Cardio: Borderline tachycardic rate at 100, normal rhythm GI: abdomen soft, non-tender, non-distended Skin: warm, dry, normal color, no rash Neuro: alert, not altered, grossly non-focal, normal tone, motor 5/5 bilateral lower extremities, sensation intact and symmetric bilateral lower extremities Ext: no edema, right lower extremity with multiple well-healed vertical surgical incisions, mild cyanosis of the right toes with cap refill greater than 3 seconds, no palpable or dopplerable DP, PT, or popliteal pulses on the right. Dopplerable femoral pulse on the right present. Psych: normal mood, normal affect, normal behavior Course Vital Signs Vital signs: Vital Signs Temperature 37.1 C 06/05/20 07:41 Pulse 106 H 06/05/20 07:41 Respiratory Rate 30 H 06/05/20 07:41 Blood Pressure 129/69 06/05/20 07:41 Pulse Oximetry 96 06/05/20 07:41 Temperature 37.1 C 06/05/20 07:41 Temperature Source Temporal Artery Scan 06/05/20 07:41 Pulse 106 H 06/05/20 07:41 Respiratory Rate 30 H 06/05/20 07:41 Blood Pressure 129/69 06/05/20 07:41 Blood Pressure Position Supine 06/05/20 07:41 Pulse Oximetry 96 06/05/20 07:41 Oxygen Delivery Method Room Air 06/05/20 07:41 Oxygen Flow Rate 0 06/05/20 07:41 Pain Level 8 06/05/20 07:41
[2020-06-05] MEDS: Normal Saline Flush 10 ML SYR IVP (08:02)
[2020-06-05] MEDS: Normal Saline 500 ML IV (08:23)
[2020-06-05 08:25] LABS: Abs Immature Grans 0.17 10^3/uL (0.0-0.06); Absolute Basophil Count 0.05 10^3/uL (0.0-0.2); Absolute Eosinophil Count 0.02 10^3/uL (0.0-0.7); Absolute Lymphocyte Count 0.14 10^3/uL (1.2-3.4); Absolute Neutrophil Count 14.93 10^3/uL (1.2-6.7); Basophils % 0.3; Eosinophils % 0.1; HCT 41.2 % (40.0-50.0); HGB 13.4 g/dL (13.5-17.5); Immature Grans % 1.1; Lymphocytes % 0.9; MCHC 32.5 % (32.0-36.0); MCV 92.4 fL (80-95); Monocytes % 3.8; Neutrophils % 93.8; Nucleated RBC 0 %; Platelet Count 161 10^3/uL (130-400); RBC 4.46 10^6/uL (4.36-5.78); RDW 13.4 % (11.8-14.1); RDW-SD 45.4 fL; WBC 15.92 10^3/uL (4.4-10.8)
[2020-06-05] MEDS: fentaNYL 100 MCG/2 ML VIAL 75 MCG IVP ×2 (08:35→09:27)
[2020-06-05 08:36] LABS: ALT 13 U/L (16-63); AST 11 U/L (15-37); Albumin 3.2 g/dL (3.4-5.0); Alkaline Phosphatase 60 U/L (46-116); Anion Gap 16.7 mmol/L (3-11); BUN 42 mg/dL (7-18); Bilirubin, Total 0.7 mg/dL (0.2-1.0); CO2 17.3 mmol/L (21.0-32.0); CREATININE 3.4 mg/dL (0.70-1.30); Calcium 8.8 mg/dL (8.5-10.1); Chloride 103 mmol/L (98-107); Estimated GFR 17.89 (mL/min/1.73m2); Glucose 206 mg/dL (74-106); Potassium 3.6 mmol/L (3.5-5.1); Sodium 137 mmol/L (136-145); Total Protein 7.8 g/dL (6.4-8.2)
[2020-06-05 08:43] LABS: INR 1.2 (0.9-1.1); PTT Activated 27.5 sec (21.0-27.5)
== END 2020-06-05 09:28 ==
PROVIDERS: Emergency Provider Student in an Organized Health Care Education/Training Program; PCP Family Medicine
DX: I77.1 Stricture of artery (principal); R23.0 Cyanosis; N18.9 Chronic kidney disease, unspecified; Z86.718 Personal history of other venous thrombosis and embolism
CPT/HCPCS: 36415; 80053; 93005; 96361; 96365; 96375; 96376; 99285; 85025; 85610; 85730; 93010; 93971; J3010

== ENCOUNTER 2020-06-19 17:05 | Outpatient (REF) | payer MEDICARE, SELFPAY ==
[2020-06-19 17:30] LABS: Abs Immature Grans 0.09 10^3/uL (0.0-0.06); Absolute Basophil Count 0.07 10^3/uL (0.0-0.2); Absolute Eosinophil Count 0.06 10^3/uL (0.0-0.7); Absolute Lymphocyte Count 1.72 10^3/uL (1.2-3.4); Absolute Monocyte Count 1.17 10^3/uL (0.1-0.8); Absolute Neutrophil Count 6.71 10^3/uL (1.2-6.7); Basophils % 0.7; Eosinophils % 0.6; HCT 31.6 % (40.0-50.0); HGB 10.1 g/dL (13.5-17.5); Immature Grans % 0.9; Lymphocytes % 17.5; MCH 29.3 pg (27.0-33.0); MCV 91.6 fL (80-95); MPV 9.8 fL (8.0-11.0); Monocytes % 11.9; Neutrophils % 68.4; Nucleated RBC 0 %; RBC 3.45 10^6/uL (4.36-5.78); RDW 14.1 % (11.8-14.1); RDW-SD 48.1 fL; WBC 9.82 10^3/uL (4.4-10.8)
[2020-06-19 17:33] LABS: Platelet Count 563 10^3/uL (130-400)
[2020-06-19 17:54] LABS: ALT 41 U/L (16-63); AST 62 U/L (15-37); Alkaline Phosphatase 91 U/L (46-116); Anion Gap 9.4 mmol/L (3-11); BUN 23 mg/dL (7-18); Bilirubin, Total 0.4 mg/dL (0.2-1.0); C-Reactive Protein 14.02 mg/dL (0.0-0.3); CO2 25.6 mmol/L (21.0-32.0); CREATININE 1.7 mg/dL (0.70-1.30); Calcium 8.7 mg/dL (8.5-10.1); Chloride 101 mmol/L (98-107); Estimated GFR 39.82 (mL/min/1.73m2); Glucose 172 mg/dL (74-106); Potassium 4.5 mmol/L (3.5-5.1); Sodium 136 mmol/L (136-145); Total Protein 7.4 g/dL (6.4-8.2)
== END 2020-06-19 17:06 | disposition home or self-care (01) ==
LOC: LBN 17:05
PROVIDERS: PCP Family Medicine; Visit Provider Internal Medicine Infectious Disease
DX: R78.81 Bacteremia (principal); B95.61 Methicillin susceptible Staphylococcus aureus infection as the cause of diseases classified elsewhere; E11.9 Type 2 diabetes mellitus without complications
CPT/HCPCS: 80053; 85025; 86140

== ENCOUNTER 2020-06-22 13:25 | Inpatient (IN) | payer OTHER, MEDICARE, SELFPAY ==
[2020-06-22] VITALS (74 sets, daily range): BP systolic 81–154; BP diastolic 46–140; PULSE 82–121; RESP 8–25; TEMP 36.6–37.2; O2SAT 83–100
--- NOTE | 2020-06-22 13:15 | RT.EKG_ITS ---
APPROVED REPORT Exam: Resting ECG Patient Location: E HR:98 bpm ECG Measurements Heart Rate 98 AXIS MT 154 P 60 QRSd 91 QRS 57 QT 371 T 31 QTc 474 Conclusion Sinus rhythm...normal P axis, V-rate 60- 99 I have reviewed and interpreted ECG and agree with software generated interpretation.
--- NOTE | 2020-06-22 13:31 | W.ED.GENAD ---
Discharge Plan Disposition Patient Disposition: [facility] INPATIENT Condition: Stable Discharge Details Clinical Impression: Hypotension, Vomiting, Constipation, Acute dehydration Admit Date/Time: 06/22/20 19:49 Admit Provider: Silverio De León Attending Provider: Silverio De León Primary Care Provider: Daniele Chambers ED Provider: Noa Herron Discharge Data Discharge Date/Time-TO BE ENTERED AT DEPARTURE: 06/22/20 20:40 Medical Decision Making 70-year-old male with multiple medical problems including hypertension, diabetes, peripheral vascular disease, coronary artery disease, 2 weeks status post thrombectomy of femorofemoral bypass at [facility] presents for hypotension at home today. Blood pressure on arrival 104/67. Blood pressure during my evaluation 81/59. Heart rate low to mid 100s. He is afebrile and appears nontoxic. His main complaint is vomiting. He has been on Ancef since his discharge from [facility] last week. Blood cultures done on 06/07/20 positive for MSSA in one bottle. Infectious disease were consulted and recommended continue antibiotics till July 11. His lungs are clear. Abdomen soft nontender. Right groin site leonardo and sutures in place without evidence of cellulitis. His left foot pulses are palpable. His right foot pulses are obtained by Doppler. Normal skin color to bilateral lower extremities. Differential diagnosis includes sepsis, UTI, dehydration, electrolyte abnormality, gastroenteritis, pneumonia, possible infected bypass graft. Will place an IV, bolus IV fluids, screening labs, CT chest abdomen pelvis. Labs and imaging reviewed. Long delay in obtaining imaging due to multiple patients requiring radiologic studies and EEG. White blood cell count 12. Hemoglobin stable at 8. Lactate 4.9. Urinalysis notes blood but no evidence of infection. Troponin negative. Creatinine 2.3, increased from recent baseline. Blood pressure 85/48. We will continue to bolus with IV fluids. CT reviewed and negative for acute findings. Case discussed with [facility] vascular surgery who reviewed imaging. As patient has no acute complaints of leg pain, is afebrile and be surgical site appears normal, and no obvious acute groin findings on CT imaging, do not suspect the bypass graft as source of hypotension/infection. Recommend treatment for patient's constipation with MiraLAX, Colace and enema. Suspect that dehydration is the source of his hypotension as daughter has been stating patient has not been eating and drinking. Patient's blood pressure has been fluid responsive. Blood pressure now 106/61. Repeat lactate after IV fluids 1.1. Case d/w hospitalist who accepts pt for admission. Pt agreeable with plan. Medical Records Medical records reviewed: Yes I reviewed the patient's medical records. Imaging Data Radiologic Study: Radiologist's impression: CT Chest Without Contrast; Diagnostic Exam date and time: 06/22/2020 4:50 PM Age: 70 years old Clinical indication: Nausea and vomiting; Other: Hypotensive; Prior surgery TECHNIQUE: Imaging protocol: Diagnostic computed tomography of the chest without contrast. COMPARISON: CT CHEST FOR PULMONARY EMBOLUS 11/10/2015 9:53 PM FINDINGS: Limitations: None. Trachea: Normal caliber. No endobronchial masses. Lungs: Mild new emphysema and sub threshold lower lobe bronchial ectasia. Pleural spaces: Unremarkable. No pneumothorax. No pleural effusion. Heart: Normal. Coronary arteries: Scattered calcification. Aorta: The aorta has normal caliber. Lymph nodes: No enlarged axillary, mediastinal or hilar lymph nodes. Bones/joints: No acute fracture or suspicious osseous lesion. Soft tissues: Normal. Other findings: Mild diffuse aortosclerosis. IMPRESSION: 1. No acute disease in the chest. 2. Mild new COPD changes/slight emphysema. 3. Coronary artery disease. CT Abdomen And Pelvis Without Contrast Exam date and time: 06/22/2020 4:50 PM Age: 70 years old Clinical indication: Nausea and vomiting; Other: Hypotensive; Prior surgery TECHNIQUE: Imaging protocol: Computed tomography of the abdomen and pelvis without contrast. COMPARISON: CT CHEST FOR PULMONARY EMBOLUS 11/10/2015 9:53 PM FINDINGS: Limitations: None. Liver: Normal. Gallbladder and bile ducts: Normal. Pancreas: Normal. Spleen: Normal. Adrenal glands: Normal. Kidneys and ureters: Normal. Stomach and bowel: Normal stomach and small bowel. Colonic diverticulosis and moderate retained stool. The colon is otherwise normal. Appendix: No evidence of appendicitis. Intraperitoneal space: No ascites, pneumoperitoneum or peritoneal lesion. Vasculature: Vascular surgical changes include aorto bi-iliac stent graft that traverses an infrarenal abdominal aortic aneurysm that spans 7.7 cm and measures up to 4.2 cm transverse. Additional grafts extend throughout the common and internal iliac arteries and proximal external iliac arteries. There is a femoral to femoral bypass conduit and a tunneled conduit connecting the left-sided portion to left subclavian artery. Scattered atherosclerosis. Lymph nodes: None enlarged or otherwise suspicious. Urinary bladder: Normal. Reproductive: Normal prostate and seminal vesicles. Bones/joints: No acute fracture or suspicious osseous lesion. Soft tissues: Healed bilateral groin surgical change. No seroma. IMPRESSION: 1. No acute disease in the abdomen or pelvis. 2. Mild atherosclerosis with multilevel vascular surgical changes as above including endovascular stenting traversing an infrarenal abdominal aortic aneurysm that measures up to 4.2 cm AP. 3. Incidental findings include colonic diverticulosis and probable constipation. Lab Data Lab results reviewed: Yes I reviewed the patient's lab results. Labs: 06/22/20 14:10 Blood Blood Culture - Pending 06/22/20 14:00 Blood Blood Culture - Pending 06/22/20 13:45 Urine - Reflex from Ua Urine Culture - Pending Laboratory Tests Range/Units 06/22/20 06/22/20 06/22/20 13:15 13:15 13:15 WBC (4.4-10.8) 10^3/uL 12.01 H RBC (4.36-5.78) 10^6/uL 3.75 L Hgb (13.5-17.5) g/dL 10.8 L Hct (40.0-50.0) % 33.3 L MCV (80-95) fL 88.8 MCH (27.0-33.0) pg 28.8 MCHC (32.0-36.0) % 32.4 RDW (11.8-14.1) % 13.8 Plt Count (130-400) 10^3/uL 618 H MPV (8.0-11.0) fL 9.6 Immature Gran % 1.4 Neutrophils % 69.3 Lymphocytes % 17.0 Monocytes % 11.0 Eosinophils % 0.7 Basophils % 0.6 Nucleated RBC % % 0 Absolute Neutrophils (1.2-6.7) 10^3/uL 8.32 H Absolute Lymphocytes (1.2-3.4) 10^3/uL 2.04 Absolute Monocytes (0.1-0.8) 10^3/uL 1.32 H Absolute Eosinophils (0.0-0.7) 10^3/uL 0.08 Absolute Basophils (0.0-0.2) 10^3/uL 0.07 PT (9.3-11.0) sec INR (0.9-1.1) APTT (21.0-27.5) sec VBG Lactate (0.6-1.4) mmol/L 4.9 H* Sodium (136-145) mmol/L 133 L Potassium (3.5-5.1) mmol/L 4.0 Chloride (98-107) mmol/L 98 Carbon Dioxide (21.0-32.0) mmol/L 22.0 Anion Gap (3-11) mmol/L 13.0 H BUN (7-18) mg/dL 29 H Creatinine (0.70-1.30) mg/dL 2.3 H Estimated GFR/1.73 m2 (mL/min/1.73m2) 28.09 Glucose (74-106) mg/dL 204 H Calcium (8.5-10.1) mg/dL 9.4 Magnesium (1.8-2.4) mg/dL 2.2 Total Bilirubin (0.2-1.0) mg/dL 0.4 AST (15-37) U/L 38 H ALT (16-63) U/L 23 Alkaline Phosphatase (46-116) U/L 96 Troponin I (<0.06) ng/mL < 0.05 Total Protein (6.4-8.2) g/dL 8.6 H Albumin (3.4-5.0) g/dL 2.2 L Urine Color (Yellow) Urine Clarity (Clear) Urine pH (5-8) Ur Specific [place] (1.005-1.025) Urine Protein (Negative) mg/dL Urine Ketones (Negative) mg/dL Urine Blood (Negative) Urine Nitrite (Negative) Urine Bilirubin (Negative) Urine Urobilinogen (Up TO 0.2) EU/dL Ur Leukocyte Esterase (Negative) Urine RBC (0-2) HPF Urine WBC (0-5) HPF Ur Epithelial Cells (Negative) HPF Urine Crystals (Negative) HPF Urine Bacteria (Negative) HPF Urine Casts (Negative) LPF Urine Mucus (Negative) Ur Culture Indicated? Urine Glucose (Negative) mg/dL COVID-19 Source SARS-CoV-2 (PCR) (Negative) Influenza Type A (PCR) (Negative) Influenza Type B (PCR) (Negative) RSV (PCR) (Negative) Range/Units 06/22/20 06/22/2021 13:15 13:45 19:47 WBC (4.4-10.8) 10^3/uL RBC (4.36-5.78) 10^6/uL Hgb (13.5-17.5) g/dL Hct (40.0-50.0) % MCV (80-95) fL MCH (27.0-33.0) pg MCHC (32.0-36.0) % RDW (11.8-14.1) % Plt Count (130-400) 10^3/uL MPV (8.0-11.0) fL Immature Gran % Neutrophils % Lymphocytes % Monocytes % Eosinophils % Basophils % Nucleated RBC % % Absolute Neutrophils (1.2-6.7) 10^3/uL Absolute Lymphocytes (1.2-3.4) 10^3/uL Absolute Monocytes (0.1-0.8) 10^3/uL Absolute Eosinophils (0.0-0.7) 10^3/uL Absolute Basophils (0.0-0.2) 10^3/uL PT (9.3-11.0) sec 13.9 H INR (0.9-1.1) 1.4 H APTT (21.0-27.5) sec 28.9 H VBG Lactate (0.6-1.4) mmol/L Sodium (136-145) mmol/L Potassium (3.5-5.1) mmol/L Chloride (98-107) mmol/L Carbon Dioxide (21.0-32.0) mmol/L Anion Gap (3-11) mmol/L BUN (7-18) mg/dL Creatinine (0.70-1.30) mg/dL Estimated GFR/1.73 m2 (mL/min/1.73m2) Glucose (74-106) mg/dL Calcium (8.5-10.1) mg/dL Magnesium (1.8-2.4) mg/dL Total Bilirubin (0.2-1.0) mg/dL AST (15-37) U/L ALT (16-63) U/L Alkaline Phosphatase (46-116) U/L Troponin I (<0.06) ng/mL Total Protein (6.4-8.2) g/dL Albumin (3.4-5.0) g/dL Urine Color (Yellow) Yellow Urine Clarity (Clear) Cloudy Urine pH (5-8) 6.5 Ur Specific [place] (1.005-1.025) 1.025 Urine Protein (Negative) mg/dL >=300 H Urine Ketones (Negative) mg/dL Negative Urine Blood (Negative) Small H Urine Nitrite (Negative) Negative Urine Bilirubin (Negative) Negative Urine Urobilinogen (Up TO 0.2) EU/dL 0.2 Ur Leukocyte Esterase (Negative) Negative Urine RBC (0-2) HPF 5-10 H Urine WBC (0-5) HPF 0-2 Ur Epithelial Cells (Negative) HPF Few Urine Crystals (Negative) HPF Negative Urine Bacteria (Negative) HPF Many Urine Casts (Negative) LPF 5-10 coarse granular Urine Mucus (Negative) Trace Ur Culture Indicated? Yes Urine Glucose (Negative) mg/dL Negative COVID-19 Source Nasopharyx SARS-CoV-2 (PCR) (Negative) Negative Influenza Type A (PCR) (Negative) Negative Influenza Type B (PCR) (Negative) Negative RSV (PCR) (Negative) Negative ECG Data Attestation: I personally reviewed and interpreted this ECG (s) as follows: Interpretation: Rate of 98, sinus, no acute ST elevation or depression. OR 154. QRS 91. QTc 474. HPI General Mode of arrival: ambulatory. Date/Time Provider Initiated Documentation: 06/22/20 13:26. Limitations to Documentation: no limitations. Information obtained by: patient. HPI Narrative: 70-year-old male with a history of STEMI, NSTEMI, diabetes, hyperlipidemia, peripheral vascular disease and 2 weeks status post lobectomy of left femorofemoral bypass at [facility] presents for hypotension per home health today. Patient states he has also been vomiting once daily over the past few days. States his vomit mainly consists of clear or bile. He states he has not had a bowel movement for the past week. He states his leg pain is chronic but is much better since his bypass. He denies any known fever, headache, dizziness, chest pain, shortness of breath, abdominal pain, urinary symptoms. He states he uses a walker for ambulation. Related Data Home Medications Medication Instructions Recorded Confirmed atorvastatin [Lipitor] 80 mg PO HS 11/08/15 06/22/20 clopidogrel [Plavix] 75 mg PO DAILY 11/08/15 06/22/20 lisinopril 10 mg PO DAILY 11/08/15 06/22/20 nitroglycerin [Nitrostat] 0.4 mg SUBLINGUAL DIRECTED 11/08/15 06/22/20 acetaminophen [Tylenol] 650 mg PO Q6H PRN PRN tab 11/11/15 06/22/20 blood sugar diagnostic [Test #100 strip 11/01/17 Strips] isosorbide mononitrate 120 mg PO DAILY #60 tabcr 11/01/17 06/22/20 metoprolol succinate 100 mg PO DAILY 90 Days #90 tab-cap 12/19/17 06/22/20 Lantus Solostar U-100 Insulin 32 units SUB-Q HS 02/13/20 06/22/20 liraglutide [Victoza 2-Elias] 1.2 mg SUBCUT DAILY 02/13/20 06/22/20 oxycodone 5 mg PO Q6H PRN 02/13/20 06/22/20 aspirin 325 mg PO DAILY 06/05/20 06/22/20 hydroxyzine HCl 25 mg PO QHS PRN 06/05/20 06/22/20 omeprazole 20 mg PO BID 06/05/20 06/22/20 rivaroxaban 20 mg PO DAILY 06/05/20 06/22/20 cefazolin 2 g IV TID 06/22/20 06/22/20 Previous Rx's Medication Instructions Recorded acetaminophen [Tylenol] 650 mg PO Q6H PRN PRN tab 11/11/15 blood sugar diagnostic [Test #100 strip 11/01/17 Strips] isosorbide mononitrate 120 mg PO DAILY #60 tabcr 11/01/17 metoprolol succinate 100 mg PO DAILY 90 Days #90 tab-cap 12/19/17 Allergies Allergy/AdvReac Type Severity Reaction Status Date / Time No Known Allergies Allergy Unverified 06/22/20 13:51 General NADEEM: 2 Review of Systems All systems reviewed & are unremarkable except as noted in HPI and below Constitutional Constitutional: Reports as per HPI, Denies chills and Denies fever(s) Eyes Eyes: Denies blurry vision ENT Ears, Nose, Mouth, and Throat: Denies dizziness, Denies sore throat and Denies throat swelling Cardiovascular Cardiovascular: Denies chest pain and Denies dyspnea Respiratory Respiratory: Denies cough and Denies dyspnea Gastrointestinal Gastrointestinal: Denies abdominal pain, Denies diarrhea and Denies vomiting Genitourinary Genitourinary: Denies hematuria and Denies dysuria Musculoskeletal Musculoskeletal: Denies back pain and Denies numbness Integumentary/Breasts Skin/Breast: Denies lesions and Denies rash Neurologic Neurologic: Denies dizziness, Denies localized weakness and Denies numbness Allergic/Immunologic Allergic/Immunologic: Denies throat swelling [facility] Medical History (Updated 06/25/20 @ 15:24 by Caitlin Matthews DO) Diabetes mellitus type 2 in nonobese DVT (deep venous thrombosis) Hyperlipidemia Kidney disease, chronic, stage IV (GFR 15-29 ml/min) Non-ST elevation (NSTEMI) myocardial infarction PVD (peripheral vascular disease) STEMI (ST elevation myocardial infarction) Tobacco use disorder Patient has not smoked in 5 years Surgical History (Updated 06/25/20 @ 15:24 by Caitlin Matthews DO) Atheroscler nonbiologic bypass graft both legs w/intermit claudication Status post left axillary artery to left femoral artery bypass, left to right femoral-femoral bypass, right SFA-posterior tibial bypass Social History Smoking/Tobacco Use Status: Former Tobacco Use Smoking risk assessment performed?: Yes Alcohol Intake: never Drug use: Socially Substance use type: marijuana Do you feel safe at home: Yes Do you feel safe in your relationship?: Yes Exam Const General: cooperative, healthy appearing and no acute distress HENMT Head: normal to inspection Face and sinus: normal facial exam Eyes General: appearance normal, both eyes and all related structures EOM: EOM intact bilaterally Neck Neck: normal visual inspection and No submandibular swelling Lymphatic: no lymphadenopathy noted Chest Chest: normal inspection of the chest and no tenderness Resp Effort & Inspection: normal respiratory effort and able to speak in complete sentences Auscultation: clear to auscultation bilaterally Cardio Rate: regular rate Rhythm: regular rhythm GI Inspection: normal to inspection Palpation: soft, not firm, not rigid and nontender Auscultation: normal bowel sounds Male General Exam: Yes normal external exam Back/Spine/Pelvis Thoracic/Lumbar Spine: thoracic and lumbar spine normal to inspection Pelvis: no pain with anterior-posterior compression Skin General skin exam: no rashes or lesions noted Neuro General: patient alert, patient awake and patient oriented x3 Cognition: normal cognition Speech: speech normal Motor: muscle tone normal throughout Sensory Exam: no sensory deficits noted Extrem General: normal to inspection, full ROM, capillary refill normal, no calf tenderness bilaterally and no edema Psych Appearance: grossly normal Mental Status: mental status grossly normal Speech and Movement: speech and movement normal Affect: normal affect Course Lab/Test Results Lab/Test Results: 06/22/20 13:27 Blood Blood Culture - Pending 06/22/20 13:27 Blood Blood Culture - Pending
[2020-06-22 13:53] LABS: Bilirubin Negative (Negative); Blood Small (Negative); Clarity Cloudy (Clear); Glucose Negative (Negative); Ketones Negative (Negative); Leukocyte Esterase Negative (Negative); Nitrite Negative (Negative); Specific Gravity 1.025 (1.005-1.025); Urobilinogen 0.2 EU/dL (Up TO 0.2); pH 6.5 (5-8)
[2020-06-22 13:53] LABS: Abs Immature Grans 0.17 10^3/uL (0.0-0.06); Absolute Basophil Count 0.07 10^3/uL (0.0-0.2); Absolute Eosinophil Count 0.08 10^3/uL (0.0-0.7); Absolute Lymphocyte Count 2.04 10^3/uL (1.2-3.4); Absolute Monocyte Count 1.32 10^3/uL (0.1-0.8); Absolute Neutrophil Count 8.32 10^3/uL (1.2-6.7); Basophils % 0.6; Eosinophils % 0.7; HCT 33.3 % (40.0-50.0); HGB 10.8 g/dL (13.5-17.5); Immature Grans % 1.4; MCH 28.8 pg (27.0-33.0); MCHC 32.4 % (32.0-36.0); MCV 88.8 fL (80-95); MPV 9.6 fL (8.0-11.0); Neutrophils % 69.3; Nucleated RBC 0 %; Platelet Count 618 10^3/uL (130-400); RBC 3.75 10^6/uL (4.36-5.78); RDW 13.8 % (11.8-14.1); RDW-SD 45.2 fL; WBC 12.01 10^3/uL (4.4-10.8)
[2020-06-22 13:55] LABS: Lactate 4.9 mmol/L (0.6-1.4)
[2020-06-22 14:04] LABS: Bacteria Many HPF (Negative); Epithelial Cells Few HPF (Negative); WBC 0-2 HPF (0-5)
[2020-06-22 14:05] LABS: Crystals Negative HPF (Negative); Mucus Trace (Negative)
[2020-06-22 14:05] LABS: INR 1.4 (0.9-1.1); PTT Activated 28.9 sec (21.0-27.5); Prothrombin Time 13.9 sec (9.3-11.0)
[2020-06-22 14:06] LABS: C & S Indicated? Yes
[2020-06-22 14:14] LABS: ALT 23 U/L (16-63); AST 38 U/L (15-37); Albumin 2.2 g/dL (3.4-5.0); Alkaline Phosphatase 96 U/L (46-116); BUN 29 mg/dL (7-18); Bilirubin, Total 0.4 mg/dL (0.2-1.0); CREATININE 2.3 mg/dL (0.70-1.30); Calcium 9.4 mg/dL (8.5-10.1); Chloride 98 mmol/L (98-107); Estimated GFR 28.09 (mL/min/1.73m2); Glucose 204 mg/dL (74-106); Magnesium 2.2 mg/dL (1.8-2.4); Sodium 133 mmol/L (136-145); Total Protein 8.6 g/dL (6.4-8.2); Troponin I < 0.05 ng/mL (<0.06)
--- NOTE | 2020-06-22 14:45 | DI.CT_ITS ---
EXAM: CT CHEST/ABD/PEL WO CLINICAL HISTORY: vomiting, hypotensive, r/o pneumonia, enteritis. TECHNIQUE: Imaging Protocol: Axial computed tomography images with coronal and sagittal reformatted images were created and reviewed CONTRAST MATERIAL: Noncontrast COMPARISON: CT CT ABDOMEN PELVIS WO from 01/25/2020 FINDINGS: CHEST: Thyroid: Unremarkable Tracheobronchial tree: Patent where visualized. Mediastinum and [place]: No dominant adenopathy or fluid collection. Pulmonary parenchyma: No consolidation or dominant measurable mass. Mild emphysematous changes and m ild basilar scarring.. Pleura: No effusion or pneumothorax. Lymph nodes: Within normal limits. Aorta: Thoracic portion non-dilated. Scattered aortic calcifications. Heart: Normal size. Moderate coronary artery calcifications. Bones: Mild degenerative changes. Left axillary to left femoral bypass graft and femoral femoral bypass graft. Right-sided PICC line w ith tip in the superior vena cava. ABDOMEN: Liver: Normal density. No measurable mass. Gallbladder and biliary tract: No radiodense calculus or dilation. Pancreas: Normal density, no abnormal calcifications or inflammatory process. Spleen: Normal. Kidneys: Normal size, contour and axis. No radiodense stones or obstructive uropathy. No masses seen. Adrenal glands: No masses seen. Aorta: Aortic and bilateral iliac stents, unchanged. No change in abdominal aortic aneurysm measurin g 4.3 cm. Lymph nodes: Within normal limits. PELVIS: Bladder: Symmetric distention, no gross wall thickening. Bowel: Large quantity of stool, particularly in the rectum which appears distended. Sigmoid divertic ulosis but no evidence of diverticulitis. No obstruction or bowel wall thickening. Peritoneal cavity: No ascites, collection or mesenteric inflammatory response. Bones: Within normal limits. Reproductive organs: Within normal limits. Soft tissues: Skin leonardo right groin subjacent soft tissue stranding. No drainable collection. Fe moral femoral bypass graft. IMPRESSION: Large quantity of stool in the rectum consistent with constipation. Stable appearance abdominal aorta aneurysm with stents in place. RADIATION DOSE DELIVERED: 1,221.7mGy.cm Total DLP DATA REPOSITORY: All CT scans at this facility are submitted to the National Radiology Data Registry (NRDR) Dose Index Registry (DIR) with the [employer] (A[employer]). RADIATION OPTIMIZATION: All CT scans at this facility use at least one of these dose optimization te chniques: automated exposure control; mA and/or kV adjustment per patient size (includes targeted exa ms where dose is matched to clinical indication); or iterative reconstruction.
[2020-06-22] MEDS: Normal Saline 500 ML IV (15:00)
[2020-06-22] MEDS: Ondansetron 4 MG/2 ML VIAL IVP (15:05)
[2020-06-22] MEDS: ACETAMINOPHEN 1,000 MG/100 ML BTL 400 MG IVPB (15:15)
[2020-06-22] MEDS: Normal Saline Flush 10 ML SYR IVP ×2 (15:25→22:30)
[2020-06-22] MEDS: Normal Saline 1,000 ML 1000 ML IV ×2 (17:23→18:55)
--- NOTE | 2020-06-22 17:44 | NUR.NOTE ---
Nursing Note: [facility] called stating he spoke with the attending and that if the patient needs to be transferred he should go to [facility] [place]. Especially if he was to need surgery. Dr. Herron aware. Nicolette Moyer
--- NOTE | 2020-06-22 18:32 | DI.VRAD_ITS ---
PROCEDURE INFORMATION: Exam: CT Chest Without Contrast; Diagnostic Exam date and time: 06/22/2020 4:50 PM Age: 70 years old Clinical indication: Nausea and vomiting; Other: Hypotensive; Prior surgery TECHNIQUE: Imaging protocol: Diagnostic computed tomography of the chest without contrast. COMPARISON: CT CHEST FOR PULMONARY EMBOLUS 11/10/2015 9:53 PM FINDINGS: Limitations: None. Trachea: Normal caliber. No endobronchial masses. Lungs: Mild new emphysema and sub threshold lower lobe bronchial ectasia. Pleural spaces: Unremarkable. No pneumothorax. No pleural effusion. Heart: Normal. Coronary arteries: Scattered calcification. Aorta: The aorta has normal caliber. Lymph nodes: No enlarged axillary, mediastinal or hilar lymph nodes. Bones/joints: No acute fracture or suspicious osseous lesion. Soft tissues: Normal. Other findings: Mild diffuse aortosclerosis. IMPRESSION: 1. No acute disease in the chest. 2. Mild new COPD changes/slight emphysema. 3. Coronary artery disease. PROCEDURE INFORMATION: Exam: CT Abdomen And Pelvis Without Contrast Exam date and time: 06/22/2020 4:50 PM Age: 70 years old Clinical indication: Nausea and vomiting; Other: Hypotensive; Prior surgery TECHNIQUE: Imaging protocol: Computed tomography of the abdomen and pelvis without contrast. COMPARISON: CT CHEST FOR PULMONARY EMBOLUS 11/10/2015 9:53 PM FINDINGS: Limitations: None. Liver: Normal. Gallbladder and bile ducts: Normal. Pancreas: Normal. Spleen: Normal. Adrenal glands: Normal. Kidneys and ureters: Normal. Stomach and bowel: Normal stomach and small bowel. Colonic diverticulosis and moderate retained stool. The colon is otherwise normal. Appendix: No evidence of appendicitis. Intraperitoneal space: No ascites, pneumoperitoneum or peritoneal lesion. Vasculature: Vascular surgical changes include aorto bi-iliac stent graft that traverses an infrarenal abdominal aortic aneurysm that spans 7.7 cm and measures up to 4.2 cm transverse. Additional grafts extend throughout the common and internal iliac arteries and proximal external iliac arteries. There is a femoral to femoral bypass conduit and a tunneled conduit connecting the left-sided portion to left subclavian artery. Scattered atherosclerosis. Lymph nodes: None enlarged or otherwise suspicious. Urinary bladder: Normal. Reproductive: Normal prostate and seminal vesicles. Bones/joints: No acute fracture or suspicious osseous lesion. Soft tissues: Healed bilateral groin surgical change. No seroma. IMPRESSION: 1. No acute disease in the abdomen or pelvis. 2. Mild atherosclerosis with multilevel vascular surgical changes as above including endovascular stenting traversing an infrarenal abdominal aortic aneurysm that measures up to 4.2 cm AP. 3. Incidental findings include colonic diverticulosis and probable constipation. Dictated and Authenticated by: Ford Varela MD. Ordering:MIRIAM Latham MD
[2020-06-22] MEDS: ceFAZolin 2 GM/50 ML BAG IVPB (19:19)
[2020-06-22 20:21] LABS: Lactate 1.1 mmol/L (0.6-1.4)
[2020-06-22 20:35] LABS: BE 1 mmol/L (-2-3); HCO3 24 mmol/L (22-26); pCO2 27 mmHg (35-45); pH 7.56 (7.35-7.45); pO2 76 mmHg (80-105); sO2 96 % (95-98); tCO2 22 mmol/L (23-27)
[2020-06-22 20:38] LABS: FIO2 21 %; Site Right Radial
[2020-06-22 20:42] LABS: COVID-19 PCR Negative (Negative); Influenza A PCR Negative (Negative); Influenza B PCR Negative (Negative); RSV PCR Negative (Negative)
[2020-06-22 20:45] LABS: Troponin I < 0.05 ng/mL (<0.06)
[2020-06-22 20:59] LABS: Procalcitonin 0.3 ng/mL
[2020-06-22] MEDS: Atorvastatin 40 MG TAB 80 MG PO (21:42)
[2020-06-22] MEDS: Omeprazole 20 MG CAPCR PO (21:42)
[2020-06-22] MEDS: oxyCODONE 5 MG TAB PO (21:43)
[2020-06-22] MEDS: Docusate Sodium 100 MG CAP PO (21:43)
[2020-06-22] MEDS: Senna TAB 1 TAB PO (21:43)
[2020-06-22] MEDS: hydrOXYzine HCL 25 MG TAB PO (21:44)
[2020-06-22] MEDS: Bisacodyl 10 MG SUPP PR (21:45)
[2020-06-22] MEDS: Normal Saline 1,000 ML 100 ML IV (21:46)
--- NOTE | 2020-06-22 22:42 | HPE_ITS ---
Date of service: 06/22/20 Time of Service: 22:42 Assessment and Plan Assessment and plan (1) Acute dehydration: Status: Acute Assessment and plan: IV fluid hydration, antiemetics, repeat BMP in the morning, treat constipation with Relistor, laxatives and stool softeners and/or enemas (2) Hypotension: Status: Acute Assessment and plan: Hypotension now resolving with IV fluid hydration. Patient does not appear to be septic and his lactic acid has resolved with IV fluid hydration and his serial troponin I levels have been normal thus ruling out ACS. Qualifiers: Hypotension type: hypotension due to hypovolemia Qualified Code(s): I95.89 - Other hypotension; E86.1 - Hypovolemia (3) Constipation: Status: Acute Assessment and plan: Constipation secondary to poor oral hydration and lack of nutrition in addition to chronic narcotic treatment of his ischemic pain. Bowel movement seems to improved after IV fluid hydration and use of Relistor. Qualifiers: Constipation type: drug induced constipation Qualified Code(s): K59.03 - Drug induced constipation (4) Kidney disease, chronic, stage IV (GFR 15-29 ml/min): Status: Acute Assessment and plan: Worsening azotemia secondary to dehydration in the setting of chronic kidney disease (5) PVD (peripheral vascular disease): Status: Chronic Assessment and plan: Severe peripheral vascular disease requiring antiplatelets and anticoagulants with repeated bouts of thrombosis requiring thrombectomy. (6) Diabetes mellitus type 2 in nonobese: Status: Chronic Assessment and plan: Monitor blood sugars before meals and at bedtime and cover with sliding scale insulin. (7) MSSA bacteremia: Status: Acute Assessment and plan: Unclear etiology but given his severe peripheral va scular disease it would not surprise me that he probably had bacteremia from his skin ulcer on his right foot. Per IDs recommendation at [facility] he is to be treated with ceftriaxone through July 11, 2020. At the time of discharge from [facility] on June 16, 2020 his blood cultures showed no growth. History of Present Illness History of Present Illness Chief Complaint: Nausea and vomiting Narrative: 70-year-old male with a history of coronary artery disease status post NSTEMI, type 2 diabetes mellitus, chronic kidney disease, peripheral arterial vascular disease status post left axillary artery to left femoral artery bypass graft, left to right femorofemoral bypass and right SFA to posterior tibial bypass with 2 prior episodes of thrombosis requiring graft thrombectomies was recently hospitalized at [facility] from June 05, 2020 through June 16, 2020 because of critical lower limb ischemia of his right leg. He was started on a heparin drip and went to the operating room where thrombus was discovered on entry to the graft and this was thrombectomized with significant i mprovement in the inflow and the outflow had similar lady thrombectomized with return of a purple appearing thrombus. Patient had improved signals of the right AT/peroneal. Blood cultures obtained on June 07, 2020 grew MSSA in 1 bottle. Infectious disease was consulted and it was recommended that the patient receive ceftriaxone through an end date of July 11, 2020. At the time of discharge his blood cultures show no growth. Since he has been discharged from [facility] has been living with his son and [id number] wheeze been constipated. Last bowel movement was a week ago. He has been nauseated with meals and throwing up. He has been fatigued and sleeping all the time. No fevers or rigors. Evaluation in the ER revealed Doppler pulses in the right foot and palpable pulse of the left foot. Screening labs include a CBC that showed a white count 12,000 and a stable chronic anemia with a hemoglobin 10.8 g hematocrit 33%. Blood lactate was elevated on admission at 4.9 but after IV fluid hydration blood lactate came down to 1.1. CMP showed worsening azotemia with a BUN of 29 creatinine 2.3 whereas his previous level earlier in the week was 23 and 1.7. His baseline creatinine appears to be between 1.8 and 2.0. Patient admits he has been sleeping a lot and not been eating or drinking much because he has been so nauseated. Serial troponin I levels have been normal. CT of the chest abdomen pelvis is performed without contrast. Chest CT shows COPD changes with emphysema and evidence of coronary artery calcifications. No acute pulmonary process. CT of the abdomen pelvis showed no acute disease in the abdomen or pelvis. He has mild atherosclerosis with multilevel vascular surgical changes including endovascular stenting traversing an infrarenal abdominal aortic aneurysm that measures up to 4.2 cm. He has colonic diverticulosis and constipation. Dr. Noa Herron, emergency room attending, spoke with Dr. Hemanth Ellis from vascular surgery at [facility]. His recommendation was admission here at [facility] for IV fluid hydration to treat prerenal azotemia and to continue current Rocephin for his MSSA bacteremia and to treat the constipation with laxatives and enemas. As there was no evidence for acute limb ischemia they felt there was no need for emergent transfer to [facility] at the present time no beds were available at [facility]. Because of the patient's hypotension on arrival to the emergency room and persistent borderline low blood pressure readings throughout his emergency room stay was recommended that he be admitted overnight to the intensive care unit for close monitoring. Review of Systems All systems reviewed & are unremarkable except as noted in HPI and below Cardiovascular Cardiovascular: Reports claudication Respiratory Respiratory: Reports system reviewed and no additional complaints, except as documented Gastrointestinal Gastrointestinal: Reports as per HPI, Denies abdominal pain, Reports change in bowel habits, Reports constipation, Reports nausea and Reports vomiting Genitourinary Genitourinary: Reports system reviewed and no additional complaints, except as documented [facility] Medical History Diabetes mellitus type 2 in nonobese DVT (deep venous thrombosis) Hyperlipidemia Non-ST elevation (NSTEMI) myocardial infarction PVD (peripheral vascular disease) STEMI (ST elevation myocardial infarction) Tobacco use disorder Surgical History (Updated 06/23/20 @ 00:08 by Silverio De León) Atheroscler nonbiologic bypass graft both legs w/intermit claudication Status post left axillary artery to left femoral artery bypass, left to right femoral-femoral bypass, right SFA-posterior tibial bypass Social History Smoking/Tobacco Use Status: Former Tobacco Use Smoking risk assessment performed?: Yes Alcohol Intake: never Drug use: Socially Substance use type: marijuana Do you feel safe at home: Yes Do you feel safe in your relationship?: Yes Meds Home Medications and Allergies Home Medications Medication Instructions Recorded Confirmed Type atorvastatin [Lipitor] 80 mg PO HS 11/08/15 06/22/20 History clopidogrel [Plavix] 75 mg PO DAILY 11/08/15 06/22/20 History lisinopril 10 mg PO DAILY 11/08/15 06/22/20 History nitroglycerin [Nitrostat] 0.4 mg SUBLINGUAL DIRECTED 11/08/15 06/22/20 History acetaminophen [Tylenol] 650 mg PO Q6H PRN PRN tab 11/11/15 06/22/20 Rx blood sugar diagnostic [Test #100 strip 11/01/17 Rx Strips] isosorbide mononitrate 120 mg PO DAILY #60 tabcr 11/01/17 06/22/20 Rx metoprolol succinate 100 mg PO DAILY 90 Days #90 tab-cap 12/19/17 06/22/20 Rx Lantus Solostar U-100 Insulin 32 units SUB-Q HS 02/13/20 06/22/20 History liraglutide [Victoza 2-Elias] 1.2 mg SUBCUT DAILY 02/13/20 06/22/20 History oxycodone 5 mg PO Q6H PRN 02/13/20 06/22/20 History aspirin 325 mg PO DAILY 06/05/20 06/22/20 History hydroxyzine HCl 25 mg PO QHS PRN 06/05/20 06/22/20 History omeprazole 20 mg PO BID 06/05/20 06/22/20 History rivaroxaban 20 mg PO DAILY 06/05/20 06/22/20 History cefazolin 2 g IV TID 06/22/20 06/22/20 History Allergies Allergy/AdvReac Type Severity Reaction Status Date / Time No Known Allergies Allergy Unverified 06/22/20 13:51 Exam Narrative Exam Narrative: Appeared bearded elderly male in no acute distress alert and oriented person place time circumstance. HEENT is unremarkable. Neck is supple no JVD normal carotid pulses. Lungs are clear to auscultation Heart regular rate and rhythm without appreciable murmur rub or gallop Abdomen soft and nontender no bruits no palpable masses no organomegaly. Lower extremities right femoral area has a well healing surgical wound that is been surgically closed without induration or erythema or drainage. There is palpable pulses over the right femoral area. Right leg with nonpalpable pulses but available by Doppler according to ER. There is a scabbed eschar over the medial ankle just superior and posterior to the medial malleolus. There is an open wound just below the medial malleolus with some mild oozing of blood but no purulent discharge. The right foot is warm compared to the left foot. Left leg has palpable but diminished pedal pulses of the posterior tibial and dorsalis pedis. Patient has palpable left femoral pulse. The right foot the little toe has some dry gangrene over the tip of the little toe. Right extremity with PICC line just proximal to the antecubital space with no area of induration or erythema Results Labs Result diagrams: 06/22/20 13:15 06/22/20 13:15 Labs: Laboratory Results - last 24 hr 06/22/20 06/22/20 06/22/20 13:15 13:15 13:15 WBC 12.01 H RBC 3.75 L Hgb 10.8 L Hct 33.3 L MCV 88.8 MCH 28.8 MCHC 32.4 RDW 13.8 Plt Count 618 H MPV 9.6 Immature Gran % 1.4 Neutrophils % 69.3 Lymphocytes % 17.0 Monocytes % 11.0 Eosinophils % 0.7 Basophils % 0.6 Nucleated RBC % 0 Absolute Neutrophils 8.32 H Absolute Lymphocytes 2.04 Absolute Monocytes 1.32 H Absolute Eosinophils 0.08 Absolute Basophils 0.07 PT INR APTT ABG Sample Site ABG pH ABG pCO2 ABG pO2 ABG HCO3 ABG Total CO2 ABG O2 Saturation ABG Base Excess VBG Lactate 4.9 H* FiO2 Sodium 133 L Potassium 4.0 Chloride 98 Carbon Dioxide 22.0 Anion Gap 13.0 H BUN 29 H Creatinine 2.3 H Estimated GFR/1.73 m2 28.09 Glucose 204 H Calcium 9.4 Magnesium 2.2 Total Bilirubin 0.4 AST 38 H ALT 23 Alkaline Phosphatase 96 Troponin I < 0.05 Total Protein 8.6 H Albumin 2.2 L Procalcitonin Urine Color Urine Clarity Urine pH Ur Specific Gilman Urine Protein Urine Ketones Urine Blood Urine Nitrite Urine Bilirubin Urine Urobilinogen Ur Leukocyte Esterase Urine RBC Urine WBC Ur Epithelial Cells Urine Crystals Urine Bacteria Urine Casts Urine Mucus Ur Culture Indicated? Urine Glucose COVID-19 Source SARS-CoV-2 (PCR) Influenza Type A (PCR) Influenza Type B (PCR) RSV (PCR) 06/22/20 06/22/20 06/22/20 13:15 13:45 19:47 WBC RBC Hgb Hct MCV MCH MCHC RDW Plt Count MPV Immature Gran % Neutrophils % Lymphocytes % Monocytes % Eosinophils % Basophils % Nucleated RBC % Absolute Neutrophils Absolute Lymphocytes Absolute Monocytes Absolute Eosinophils Absolute Basophils PT 13.9 H INR 1.4 H APTT 28.9 H ABG Sample Site ABG pH ABG pCO2 ABG pO2 ABG HCO3 ABG Total CO2 ABG O2 Saturation ABG Base Excess VBG Lactate FiO2 Sodium Potassium Chloride Carbon Dioxide Anion Gap BUN Creatinine Estimated GFR/1.73 m2 Glucose Calcium Magnesium Total Bilirubin AST ALT Alkaline Phosphatase Troponin I Total Protein Albumin Procalcitonin Urine Color Yellow Urine Clarity Cloudy Urine pH 6.5 Ur Specific Gilman 1.025 Urine Protein >=300 H Urine Ketones Negative Urine Blood Small H Urine Nitrite Negative Urine Bilirubin Negative Urine Urobilinogen 0.2 Ur Leukocyte Esterase Negative Urine RBC 5-10 H Urine WBC 0-2 Ur Epithelial Cells Few Urine Crystals Negative Urine Bacteria Many Urine Casts 5-10 coarse granular Urine Mucus Trace Ur Culture Indicated? Yes Urine Glucose Negative COVID-19 Source Nasopharyx SARS-CoV-2 (PCR) Negative Influenza Type A (PCR) Negative Influenza Type B (PCR) Negative RSV (PCR) Negative 06/22/20 06/22/20 06/22/20 20:10 20:10 20:10 WBC RBC Hgb Hct MCV MCH MCHC RDW Plt Count MPV Immature Gran % Neutrophils % Lymphocytes % Monocytes % Eosinophils % Basophils % Nucleated RBC % Absolute Neutrophils Absolute Lymphocytes Absolute Monocytes Absolute Eosinophils Absolute Basophils PT INR APTT ABG Sample Site ABG pH ABG pCO2 ABG pO2 ABG HCO3 ABG Total CO2 ABG O2 Saturation ABG Base Excess VBG Lactate 1.1 FiO2 Sodium Potassium Chloride Carbon Dioxide Anion Gap BUN Creatinine Estimated GFR/1.73 m2 Glucose Calcium Magnesium Total Bilirubin AST ALT Alkaline Phosphatase Troponin I < 0.05 Total Protein Albumin Procalcitonin 0.3 Urine Color Urine Clarity Urine pH Ur Specific Gilman Urine Protein Urine Ketones Urine Blood Urine Nitrite Urine Bilirubin Urine Urobilinogen Ur Leukocyte Esterase Urine RBC Urine WBC Ur Epithelial Cells Urine Crystals Urine Bacteria Urine Casts Urine Mucus Ur Culture Indicated? Urine Glucose COVID-19 Source SARS-CoV-2 (PCR) Influenza Type A (PCR) Influenza Type B (PCR) RSV (PCR) 06/22/20 20:35 WBC RBC Hgb Hct MCV MCH MCHC RDW Plt Count MPV Immature Gran % Neutrophils % Lymphocytes % Monocytes % Eosinophils % Basophils % Nucleated RBC % Absolute Neutrophils Absolute Lymphocytes Absolute Monocytes Absolute Eosinophils Absolute Basophils PT INR APTT ABG Sample Site Right radial ABG pH 7.56 H ABG pCO2 27 L ABG pO2 76 L ABG HCO3 24 ABG Total CO2 22 L ABG O2 Saturation 96 ABG Base Excess 1 VBG Lactate FiO2 21 Sodium Potassium Chloride Carbon Dioxide Anion Gap BUN Creatinine Estimated GFR/1.73 m2 Glucose Calcium Magnesium Total Bilirubin AST ALT Alkaline Phosphatase Troponin I Total Protein Albumin Procalcitonin Urine Color Urine Clarity Urine pH Ur Specific Gilman Urine Protein Urine Ketones Urine Blood Urine Nitrite Urine Bilirubin Urine Urobilinogen Ur Leukocyte Esterase Urine RBC Urine WBC Ur Epithelial Cells Urine Crystals Urine Bacteria Urine Casts Urine Mucus Ur Culture Indicated? Urine Glucose COVID-19 Source SARS-CoV-2 (PCR) Influenza Type A (PCR) Influenza Type B (PCR) RSV (PCR) Last Vital Signs Temp 37.2 C 06/22/20 21:00 Pulse 86 06/22/20 20:50 Resp 14 06/22/20 20:32 BP 120/68 06/22/20 20:50 Pulse Ox 98 06/22/20 21:00 COVID-19 Screening Have you, or household traveled for leisure in last 14 days?: No Had IN PERSON contact w/suspected or confirmed C-19 person: No
[2020-06-22] MEDS: Methylnaltrexone 12 MG/0.6 ML VIAL SC (22:45)
[2020-06-22 22:55] LABS: Troponin I < 0.05 ng/mL (<0.06)
[2020-06-23] VITALS (109 sets, daily range): BP systolic 73–135; BP diastolic 44–79; PULSE 74–108; RESP 9–32; TEMP 36.2–37.3; O2SAT 91–99
[2020-06-23] MEDS: Normal Saline Flush 10 ML SYR IVP ×2 (00:27→13:14)
[2020-06-23 01:38] LABS: Anion Gap 10.8 mmol/L (3-11); BUN 28 mg/dL (7-18); CO2 23.2 mmol/L (21.0-32.0); CREATININE 2.1 mg/dL (0.70-1.30); Calcium 8.7 mg/dL (8.5-10.1); Chloride 103 mmol/L (98-107); Glucose 132 mg/dL (74-106); Potassium 3.8 mmol/L (3.5-5.1); Sodium 137 mmol/L (136-145)
[2020-06-23] MEDS: ceFAZolin 2 GM/50 ML BAG IVPB ×3 (03:40→21:03)
[2020-06-23 06:26] LABS: Abs Immature Grans 0.09 10^3/uL (0.0-0.06); Absolute Basophil Count 0.08 10^3/uL (0.0-0.2); Absolute Eosinophil Count 0.15 10^3/uL (0.0-0.7); Absolute Monocyte Count 0.95 10^3/uL (0.1-0.8); Eosinophils % 1.8; HCT 28.5 % (40.0-50.0); Immature Grans % 1.1; Lymphocytes % 15.6; MCH 28.8 pg (27.0-33.0); MCHC 31.6 % (32.0-36.0); MCV 91.3 fL (80-95); MPV 9.3 fL (8.0-11.0); Monocytes % 11.4; Neutrophils % 69.1; Nucleated RBC 0 %; Platelet Count 402 10^3/uL (130-400); RBC 3.12 10^6/uL (4.36-5.78); RDW-SD 47.3 fL; WBC 8.34 10^3/uL (4.4-10.8)
[2020-06-23 06:35] LABS: Absolute Neutrophil Count 5.76 10^3/uL (1.2-6.7)
[2020-06-23] MEDS: Normal Saline 1,000 ML 100 ML IV ×3 (06:48→21:09)
[2020-06-23 07:05] LABS: ALT 22 U/L (16-63); AST 34 U/L (15-37); Albumin 1.8 g/dL (3.4-5.0); Alkaline Phosphatase 80 U/L (46-116); Anion Gap 8.5 mmol/L (3-11); BUN 24 mg/dL (7-18); Bilirubin, Total 0.3 mg/dL (0.2-1.0); CO2 24.5 mmol/L (21.0-32.0); CREATININE 1.9 mg/dL (0.70-1.30); Calcium 8.5 mg/dL (8.5-10.1); Chloride 105 mmol/L (98-107); Estimated GFR 35.02 (mL/min/1.73m2); Glucose 106 mg/dL (74-106); Potassium 3.9 mmol/L (3.5-5.1); Sodium 138 mmol/L (136-145); Total Protein 7.2 g/dL (6.4-8.2)
[2020-06-23 07:18] LABS: Iron 19 ug/dL (65-175); Total Iron Binding Capacity 133 ug/dL (250-450); Transferrin Sat 14 % (20-55)
[2020-06-23 07:44] LABS: Ferritin 272 ng/mL (26-388); Folate 3.4 ng/mL (8.6-20.0); Vitamin B12 939 pg/mL (193-986)
[2020-06-23] MEDS: oxyCODONE 5 MG TAB PO ×2 (07:58→22:14)
[2020-06-23] MEDS: Aspirin 325 MG TAB PO (08:09)
[2020-06-23] MEDS: Rivaroxaban 10 MG TABLET 20 MG PO (08:10)
[2020-06-23] MEDS: Isosorbide Mononitrate 60 MG TABCR 120 MG PO (08:10)
[2020-06-23] MEDS: Clopidogrel 75 MG TAB PO (08:10)
[2020-06-23] MEDS: Omeprazole 20 MG CAPCR PO ×2 (08:10→21:04)
[2020-06-23] MEDS: Docusate Sodium 100 MG CAP PO ×3 (08:10→21:04)
[2020-06-23] MEDS: Metoprolol CR 100 MG TABCR PO (08:10)
[2020-06-23] MEDS: Polyethylene Glycol 3350 17 GM PACKET PO (09:30)
--- NOTE | 2020-06-23 09:53 | PDOC.CMIN ---
- If Service Date Differs Date of service: 06/23/20 Time of Service: 09:53 Care Management Initial Assess REASON FOR HOSPITALIZATION:: Hypotension, vomiting, dehydration, constipation PAST MEDICAL HISTORY/PAST SURGICAL HISTORY:: Medical History. Diabetes mellitus type 2 in nonobese. DVT (deep venous thrombosis). Hyperlipidemia. Non-ST elevation (NSTEMI) myocardial infarction. PVD (peripheral vascular disease). STEMI (ST elevation myocardial infarction). Tobacco use disorder. Surgical History. Atheroscler nonbiologic bypass graft both legs w/intermit claudication. Status post left axillary artery to left femoral artery bypass, left to right femoral-femoral bypass, right SFA-posterior tibial bypass PREVIOUS FUNCTIONAL STATUS/SOCIAL/FAMILY SUPPORTS:: Ricardo lives in an apartment in [facility], but he is currently staying with his son in [place]. His daughter also lives locally, and both children are indentified as supports. He has five grandchildren, who he sees often, and enjoys watching grow up. 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 He is independent with his ADLs, but does receive services in his son's home, and support from his children. CURRENT FUNCTIONAL STATUS:: Ricardo was sitting up in bed when CM met with him. He was pleasant and engaged in conversation. He reported that he is doing well, and he is being well [facility] at [facility]. He stated that he has a lot of support from his children, and he is 90% service connected/disabled from the [email or web address]. Rosanne Lundberg MA, called to inform CM that the MA will pay for placement, if needed. Ricardo plans to return to his son's home, where someone is with him 18/11, and he receives RN, PT, OT. CM will continue to follow. ADVANCE DIRECTIVES:: None on file. CM will offer forms. Has patient been provided with info about the portal/API?: Yes Did the patient sign up for the portal?: No CODE STATUS:: Full Code INSURANCE COVERAGE / FINANCIAL ISSUES:: [facility]; [place] CURRENT HOME/COMMUNITY SERVICES/EQUIPMENT:: No current services or equipment PRIMARY CARE PHYSICIAN:: Daniele Chambers POTENTIAL DISCHARGE NEEDS:: Evaluations for further needs, follow up appointments PATIENT/FAMILY EDUCATION NEEDS:: Review discharge instructions regarding activity levels and medications, discussion of self care needs. ANTICIPATED BARRIERS TO DISCHARGE:: None identified. TRANSPORTATION:: Via private vehicle by [facility] PLAN:: Anticipate Ricardo will return home when medically cleared. He will be driven via private vehicle by family. He will follow up with his PCP and discharge plan of care. CM will continue to follow.
--- NOTE | 2020-06-23 11:10 | W.INDIABCONS ---
Date of service: 06/23/20 Time of Service: 11:10 Diabetes Inpatient Consult DESCRIPTION/ASSESSMENT: 70 year old male admitted with MSSA bacteremia, dehydration with PMH: DM2, CAD, CKD,PVD. BMI wnl. Ricardo reports living with his son. Home meds include victoza 1.2 mg qd, lantus 32 u HS. No new A1C however blood sugars adequately controlled while in hospital. Following diabetic diet with excellent intake since admit (>75% of meals). INTERVENTION: Provided education on DM including Hyper/hypoglycemia s/s with action plan for each scenario. Definition and types of CHO with examples, CHO counting, DASH diet materials, DM meal planning and label reading literature. Provided a blood sugar and food record chart and materials to reiterate CHO counting techniques. Reviewed desirable BG levels with patient with food choices and portions for optimal outcomes. Provided contact information for this RD and encouraged to call with any f/u questions r/t to DM self management. CDM from kitchen has been helping to count CHO's and achieve intake of ~65g/CHO per meal period. PLAN: continue current meal plan, will monitor po intake, labs and weight. Time Spent in Nutritional Counseling and Treatment: 10
[2020-06-23] MEDS: Insulin Aspart 300 UNITS/3 ML PEN SC ×2 (12:12→12:13)
--- NOTE | 2020-06-23 12:44 | W.PM.PROGNOT ---
Date of Service Date of service: 06/23/20 Time of Service: 09:08 Assessment and Plan Assessment and plan (1) MSSA bacteremia: Status: Acute Assessment and plan: Per ID recommendation at [facility] [place] where he was admitted from 06/05 - 06/16/2020; Cefazolin through 07/11/2020. (2) Diabetes mellitus type 2 in nonobese: Status: Chronic Assessment and plan: SS insulin correction dosing AC/HS Holding glipizide. Holding scheduled basal/bolus insulin. Monitor (3) PVD (peripheral vascular disease): Status: Chronic Assessment and plan: Recent H/O 2 prior episodes thrombosis requiring graft thrombectomies of R SF:-PT graft. Now s/p third thrombectomy. Cont Xarelto, ASA, Plavix. (4) Hypotension: Status: Acute Assessment and plan: Received 3L IV NS in ED and admitted on NS at 100ml/hr. SBP in the 110-130's on admission to ICU initially. Low BP in the 90's, then he ambulated w/o difficulty but after sitting in chair had SBP readings into the 70's that recovered spontaneously. He has had no CP, SOA, changes in mentation. At appx 1300, while lying quietly, BP decreased again w/o symptoms. NS 500ml bolus given (urine has continued to be dark). Noted; he did have Imdur and Metoprolol this AM. Cont NS 100ml/hr. He was significantly volume depleted on arrival with a BUN of 29 and creatinine of 2.3. BUN improved to 24 and Creatinine to 1.9. Qualifiers: Hypotension type: hypotension due to hypovolemia Qualified Code(s): I95.89 - Other hypotension; E86.1 - Hypovolemia (5) Constipation: Status: Acute Assessment and plan: On admission to ICU, Relistor given with a resultant large BM. Also had a dose of Senna. He is oxycodone 5mg at home; typically takes 4x/day. He uses colace and prn miralax. Schedule Miralax. Cont Colace. He sleeps much of the time so his fluid intake is not adequate. Will need to improve hydration status at home. Qualifiers: Constipation type: drug induced constipation Qualified Code(s): K59.03 - Drug induced constipation (6) Vfhdz-[id number]-[id number] kidney injury: Status: Acute Assessment and plan: Improved with IV NS. Urine has remained somewhat concentrated. Given another 500ml NS bolus for low BP noted at appx 1300. Subjective Subjective Patient reports: feels better, bowel movement and afebrile; denies shortness of breath Interval history since last seen: He endorses feeling tired. Also states he typically sleeps appx 18 hours/daily. Pain controlled. Exam Const General: cooperative and no acute distress Nutritional Appearance: average body habitus Orientation: alert Resp Effort & Inspection: normal respiratory effort Auscultation: clear to auscultation bilaterally Cardio Jugular venous pressure: no JVD Rate: regular rate Rhythm: regular rhythm Heart Sounds: S1 normal, S2 normal and no murmurs GI Palpation: soft and nontender Auscultation: normal bowel sounds Skin Full body images: 1. 2 lesions; escar at medial ankle; superior/posterior to medial malleolus. Ope ulcer distal to medial malleolus. R little toe with dry gangrene at tip. Extrem General: no pedal edema and no calf tenderness Right upper extremity: normal to inspection (PICC line in place.) Objective Last Vital Signs Temp 37.3 C 06/23/20 12:36 Pulse 97 H 06/23/20 10:42 Resp 16 06/23/20 12:36 BP 108/62 06/23/20 10:42 Pulse Ox 96 06/23/20 12:36 Laboratory Results - last 24 hr 06/22/20 06/22/20 06/22/20 13:15 13:15 13:15 WBC 12.01 H RBC 3.75 L Hgb 10.8 L Hct 33.3 L MCV 88.8 MCH 28.8 MCHC 32.4 RDW 13.8 Plt Count 618 H MPV 9.6 Immature Gran % 1.4 Neutrophils % 69.3 Lymphocytes % 17.0 Monocytes % 11.0 Eosinophils % 0.7 Basophils % 0.6 Nucleated RBC % 0 Absolute Neutrophils 8.32 H Absolute Lymphocytes 2.04 Absolute Monocytes 1.32 H Absolute Eosinophils 0.08 Absolute Basophils 0.07 PT INR APTT ABG Sample Site ABG pH ABG pCO2 ABG pO2 ABG HCO3 ABG Total CO2 ABG O2 Saturation ABG Base Excess VBG Lactate 4.9 H* FiO2 Sodium 133 L Potassium 4.0 Chloride 98 Carbon Dioxide 22.0 Anion Gap 13.0 H BUN 29 H Creatinine 2.3 H Estimated GFR/1.73 m2 28.09 Glucose 204 H Calcium 9.4 Magnesium 2.2 Iron TIBC Transferrin % Sat Ferritin Total Bilirubin 0.4 AST 38 H ALT 23 Alkaline Phosphatase 96 Troponin I < 0.05 Total Protein 8.6 H Albumin 2.2 L Vitamin B12 Folate Procalcitonin Urine Color Urine Clarity Urine pH Ur Specific Parkman Urine Protein Urine Ketones Urine Blood Urine Nitrite Urine Bilirubin Urine Urobilinogen Ur Leukocyte Esterase Urine RBC Urine WBC Ur Epithelial Cells Urine Crystals Urine Bacteria Urine Casts Urine Mucus Ur Culture Indicated? Urine Glucose COVID-19 Source SARS-CoV-2 (PCR) Influenza Type A (PCR) Influenza Type B (PCR) RSV (PCR) 06/22/20 06/22/20 06/22/20 13:15 13:45 19:47 WBC RBC Hgb Hct MCV MCH MCHC RDW Plt Count MPV Immature Gran % Neutrophils % Lymphocytes % Monocytes % Eosinophils % Basophils % Nucleated RBC % Absolute Neutrophils Absolute Lymphocytes Absolute Monocytes Absolute Eosinophils Absolute Basophils PT 13.9 H INR 1.4 H APTT 28.9 H ABG Sample Site ABG pH ABG pCO2 ABG pO2 ABG HCO3 ABG Total CO2 ABG O2 Saturation ABG Base Excess VBG Lactate FiO2 Sodium Potassium Chloride Carbon Dioxide Anion Gap BUN Creatinine Estimated GFR/1.73 m2 Glucose Calcium Magnesium Iron TIBC Transferrin % Sat Ferritin Total Bilirubin AST ALT Alkaline Phosphatase Troponin I Total Protein Albumin Vitamin B12 Folate Procalcitonin Urine Color Yellow Urine Clarity Cloudy Urine pH 6.5 Ur Specific Parkman 1.025 Urine Protein >=300 H Urine Ketones Negative Urine Blood Small H Urine Nitrite Negative Urine Bilirubin Negative Urine Urobilinogen 0.2 Ur Leukocyte Esterase Negative Urine RBC 5-10 H Urine WBC 0-2 Ur Epithelial Cells Few Urine Crystals Negative Urine Bacteria Many Urine Casts 5-10 coarse granular Urine Mucus Trace Ur Culture Indicated? Yes Urine Glucose Negative COVID-19 Source Nasopharyx SARS-CoV-2 (PCR) Negative Influenza Type A (PCR) Negative Influenza Type B (PCR) Negative RSV (PCR) Negative 06/22/20 06/22/20 06/22/20 20:10 20:10 20:10 WBC RBC Hgb Hct MCV MCH MCHC RDW Plt Count MPV Immature Gran % Neutrophils % Lymphocytes % Monocytes % Eosinophils % Basophils % Nucleated RBC % Absolute Neutrophils Absolute Lymphocytes Absolute Monocytes Absolute Eosinophils Absolute Basophils PT INR APTT ABG Sample Site ABG pH ABG pCO2 ABG pO2 ABG HCO3 ABG Total CO2 ABG O2 Saturation ABG Base Excess VBG Lactate 1.1 FiO2 Sodium Potassium Chloride Carbon Dioxide Anion Gap BUN Creatinine Estimated GFR/1.73 m2 Glucose Calcium Magnesium Iron TIBC Transferrin % Sat Ferritin Total Bilirubin AST ALT Alkaline Phosphatase Troponin I < 0.05 Total Protein Albumin Vitamin B12 Folate Procalcitonin 0.3 Urine Color Urine Clarity Urine pH Ur Specific Parkman Urine Protein Urine Ketones Urine Blood Urine Nitrite Urine Bilirubin Urine Urobilinogen Ur Leukocyte Esterase Urine RBC Urine WBC Ur Epithelial Cells Urine Crystals Urine Bacteria Urine Casts Urine Mucus Ur Culture Indicated? Urine Glucose COVID-19 Source SARS-CoV-2 (PCR) Influenza Type A (PCR) Influenza Type B (PCR) RSV (PCR) 06/22/20 06/22/20 06/22/20 20:35 22:30 22:30 WBC RBC Hgb Hct MCV MCH MCHC RDW Plt Count MPV Immature Gran % Neutrophils % Lymphocytes % Monocytes % Eosinophils % Basophils % Nucleated RBC % Absolute Neutrophils Absolute Lymphocytes Absolute Monocytes Absolute Eosinophils Absolute Basophils PT INR APTT ABG Sample Site Right radial ABG pH 7.56 H ABG pCO2 27 L ABG pO2 76 L ABG HCO3 24 ABG Total CO2 22 L ABG O2 Saturation 96 ABG Base Excess 1 VBG Lactate FiO2 21 Sodium 137 Potassium 3.8 Chloride 103 Carbon Dioxide 23.2 Anion Gap 10.8 BUN 28 H Creatinine 2.1 H Estimated GFR/1.73 m2 31.20 Glucose 132 H Calcium 8.7 Magnesium Iron TIBC Transferrin % Sat Ferritin Total Bilirubin AST ALT Alkaline Phosphatase Troponin I < 0.05 Total Protein Albumin Vitamin B12 Folate Procalcitonin Urine Color Urine Clarity Urine pH Ur Specific [place] Urine Protein Urine Ketones Urine Blood Urine Nitrite Urine Bilirubin Urine Urobilinogen Ur Leukocyte Esterase Urine RBC Urine WBC Ur Epithelial Cells Urine Crystals Urine Bacteria Urine Casts Urine Mucus Ur Culture Indicated? Urine Glucose COVID-19 Source SARS-CoV-2 (PCR) Influenza Type A (PCR) Influenza Type B (PCR) RSV (PCR) 06/23/20 06/23/20 06/23/20 06:16 06:16 06:16 WBC RBC Hgb Hct MCV MCH MCHC RDW Plt Count MPV Immature Gran % Neutrophils % Lymphocytes % Monocytes % Eosinophils % Basophils % Nucleated RBC % Absolute Neutrophils Absolute Lymphocytes Absolute Monocytes Absolute Eosinophils Absolute Basophils PT INR APTT ABG Sample Site ABG pH ABG pCO2 ABG pO2 ABG HCO3 ABG Total CO2 ABG O2 Saturation ABG Base Excess VBG Lactate FiO2 Sodium 138 Potassium 3.9 Chloride 105 Carbon Dioxide 24.5 Anion Gap 8.5 BUN 24 H Creatinine 1.9 H Estimated GFR/1.73 m2 35.02 Glucose 106 Calcium 8.5 Magnesium Iron 19 L TIBC 133 L Transferrin % Sat 14 L Ferritin 272 Total Bilirubin 0.3 AST 34 ALT 22 Alkaline Phosphatase 80 Troponin I Total Protein 7.2 Albumin 1.8 L Vitamin B12 939 Folate 3.4 L Procalcitonin Urine Color Urine Clarity Urine pH Ur Specific [place] Urine Protein Urine Ketones Urine Blood Urine Nitrite Urine Bilirubin Urine Urobilinogen Ur Leukocyte Esterase Urine RBC Urine WBC Ur Epithelial Cells Urine Crystals Urine Bacteria Urine Casts Urine Mucus Ur Culture Indicated? Urine Glucose COVID-19 Source SARS-CoV-2 (PCR) Influenza Type A (PCR) Influenza Type B (PCR) RSV (PCR) 06/23/20 06:16 WBC 8.34 D RBC 3.12 L Hgb 9.0 L Hct 28.5 L MCV 91.3 MCH 28.8 MCHC 31.6 L RDW 14.0 Plt Count 402 H D MPV 9.3 Immature Gran % 1.1 Neutrophils % 69.1 Lymphocytes % 15.6 Monocytes % 11.4 Eosinophils % 1.8 Basophils % 1.0 Nucleated RBC % 0 Absolute Neutrophils 5.76 Absolute Lymphocytes 1.30 Absolute Monocytes 0.95 H Absolute Eosinophils 0.15 Absolute Basophils 0.08 PT INR APTT ABG Sample Site ABG pH ABG pCO2 ABG pO2 ABG HCO3 ABG Total CO2 ABG O2 Saturation ABG Base Excess VBG Lactate FiO2 Sodium Potassium Chloride Carbon Dioxide Anion Gap BUN Creatinine Estimated GFR/1.73 m2 Glucose Calcium Magnesium Iron TIBC Transferrin % Sat Ferritin Total Bilirubin AST ALT Alkaline Phosphatase Troponin I Total Protein Albumin Vitamin B12 Folate Procalcitonin Urine Color Urine Clarity Urine pH Ur Specific [place] Urine Protein Urine Ketones Urine Blood Urine Nitrite Urine Bilirubin Urine Urobilinogen Ur Leukocyte Esterase Urine RBC Urine WBC Ur Epithelial Cells Urine Crystals Urine Bacteria Urine Casts Urine Mucus Ur Culture Indicated? Urine Glucose COVID-19 Source SARS-CoV-2 (PCR) Influenza Type A (PCR) Influenza Type B (PCR) RSV (PCR)
[2020-06-23] MEDS: Normal Saline 500 ML IV (13:12)
--- NOTE | 2020-06-23 13:51 | PHA.REVIEW ---
Pharmacy Admission Review - Admission Clinical Review (Last Updated 06/23/20 @ 00:16 by Silverio De León) [id number] kidney injury (Acute) MSSA bacteremia (Acute) Kidney disease, chronic, stage IV (GFR 15-29 ml/min) (Acute) Hypotension (Acute) Vomiting (Acute) Constipation (Acute) Acute dehydration (Acute) No Known Allergies Allergy (Unverified 06/22/20 13:51) Height 6 ft 1 in Weight 84.6 kg - Renal Dosing Renal Dosing: BUN 24 mg/dL (7-18) H 06/23/20 06:16 Creatinine 1.9 mg/dL (0.70-1.30) H 06/23/20 06:16 Medications needing adjustments: Reviewed (eCrCl 37 ml/min (improved since admission) - all meds ok) - Anticoagulation Anticoagulation: Hgb 9.0 g/dL (13.5-17.5) L 06/23/20 06:16 Hct 28.5 % (40.0-50.0) L 06/23/20 06:16 Plt Count 402 10^3/uL (130-400) H D 06/23/20 06:16 INR 1.4 (0.9-1.1) H 06/22/20 13:15 Creatinine 1.9 mg/dL (0.70-1.30) H 06/23/20 06:16 DVT Prohphylaxis: Reviewed Therapeutic Anticoagulation: Reviewed Medications: Rivaroxaban - Opiate Usage Evaluate Pain Scale/Pains Meds: Reviewed Scheduled Bowel Reg ordered if on Opiates?: Yes (also relistor x1) - Relevant Labs Sodium 138 mmol/L (136-145) 06/23/20 06:16 Potassium 3.9 mmol/L (3.5-5.1) 06/23/20 06:16 Chloride 105 mmol/L (98-107) 06/23/20 06:16 Magnesium 2.2 mg/dL (1.8-2.4) 06/22/20 13:15 Electrolytes, C-Reactive P, ESR: Reviewed - DM Control DM Control: Glucose 106 mg/dL (74-106) 06/23/20 06:16 Finger Stick Blood Glucose 161 Finger Stick Blood Glucose 161 Finger Stick Blood Glucose 161 Finger Stick Blood Glucose 111 Finger Stick Blood Glucose 111 Insulin Dosing: Reviewed (aspart per SS, carb replacement, and lantus restarted at 10U (home dose = 32 U)) - Heart Failure/AL Heart Failure/AL: Troponin I < 0.05 ng/mL (<0.06) 06/22/20 22:30 EF%, ZACH's, B-Blockers, Diuretics: Reviewed - BP Control BP Control: Blood Pressure 108/62 Blood Pressure 108/62 Blood Pressure 100/49 Blood Pressure 98/63 Blood Pressure 98/63 Blood Pressure 106/61 Blood Pressure 135/69 Blood Pressure 122/79 Blood Pressure 126/64 Blood Pressure 110/63 Blood Pressure 106/64 If elevated: Reviewed List meds needing interventions: imdur and metoprolol are on hold - Qtc Review If Elevated: Reviewed List meds needing interventions: QTc 474 on admission - IV to PO Switch IV Medications: Reviewed - Home Meds Home Med List reviewed: Reviewed Relevent Home Meds Not ordered & why?: victoza (has SSI), lisinopril (hypotension) - Current meds Current Medication Order Review: Reviewed - Comments Comments/Follow Ups: monitor vitals -- htn meds on hold currently, bowels, BG/FS (home dose of lantus is 32U), BMP, med changes
[2020-06-23] MEDS: Atorvastatin 40 MG TAB 80 MG PO (21:04)
[2020-06-23] MEDS: Senna TAB 1 TAB PO (21:04)
[2020-06-23] MEDS: Insulin Glargine 300 UNITS/3 ML PEN 10 UNITS SC (22:15)
[2020-06-24] VITALS (65 sets, daily range): BP systolic 75–136; BP diastolic 41–89; PULSE 54–143; RESP 10–30; TEMP 36.3–37.7; O2SAT 93–99
--- NOTE | 2020-06-24 | DI.RAD_ITS ---
EXAM: XR ANKLE RT COMPLETE CLINICAL HISTORY: cellulitis/vascular ulcer R ankle. TECHNIQUE: 2D digital imaging was performed. COMPARISON: No exams were available for comparison FINDINGS: BONES: No acute fracture is present. No bony destructive lesion is seen. JOINTS: The ankle mortise is normally aligned. SOFT TISSUE: Mild soft tissue swelling about the ankle. IMPRESSION: No radiographic evidence to suggest acute osteomyelitis. DATA REPOSITORY: RADIATION DOSE DELIVERED:
[2020-06-24] MEDS: ceFAZolin 2 GM/50 ML BAG IVPB ×3 (03:54→21:03)
[2020-06-24 06:38] LABS: Abs Immature Grans 0.08 10^3/uL (0.0-0.06); Absolute Basophil Count 0.05 10^3/uL (0.0-0.2); Absolute Eosinophil Count 0.16 10^3/uL (0.0-0.7); Absolute Lymphocyte Count 1.11 10^3/uL (1.2-3.4); Absolute Monocyte Count 0.86 10^3/uL (0.1-0.8); Basophils % 0.6; HCT 27.9 % (40.0-50.0); HGB 8.9 g/dL (13.5-17.5); Lymphocytes % 14.1; MCH 28.6 pg (27.0-33.0); MCHC 31.9 % (32.0-36.0); MCV 89.7 fL (80-95); MPV 9.8 fL (8.0-11.0); Monocytes % 10.9; Neutrophils % 71.4; Nucleated RBC 0 %; Platelet Count 360 10^3/uL (130-400); RBC 3.11 10^6/uL (4.36-5.78); RDW 13.8 % (11.8-14.1); RDW-SD 45.5 fL; WBC 7.86 10^3/uL (4.4-10.8)
[2020-06-24 06:45] LABS: Anion Gap 7.5 mmol/L (3-11); BUN 21 mg/dL (7-18); CO2 23.5 mmol/L (21.0-32.0); CREATININE 1.9 mg/dL (0.70-1.30); Calcium 8.3 mg/dL (8.5-10.1); Chloride 105 mmol/L (98-107); Estimated GFR 35.02 (mL/min/1.73m2); Glucose 98 mg/dL (74-106); Potassium 3.8 mmol/L (3.5-5.1); Sodium 136 mmol/L (136-145)
[2020-06-24 07:15] LABS: Diff Comment RBC Morph Reviewed; Hypochromasia 1+
[2020-06-24 07:16] LABS: Polychromasia Present
[2020-06-24] MEDS: Rivaroxaban 10 MG TABLET 20 MG PO (08:09)
[2020-06-24] MEDS: Aspirin 325 MG TAB PO (08:09)
[2020-06-24] MEDS: oxyCODONE 5 MG TAB PO (08:10)
[2020-06-24] MEDS: Acetaminophen 325 MG TAB PO ×3 (08:10→19:56)
[2020-06-24] MEDS: Docusate Sodium 100 MG CAP PO ×3 (08:10→19:58)
[2020-06-24] MEDS: Clopidogrel 75 MG TAB PO (08:10)
[2020-06-24] MEDS: Omeprazole 20 MG CAPCR PO ×2 (08:11→19:58)
[2020-06-24] MEDS: Polyethylene Glycol 3350 17 GM PACKET PO (08:11)
[2020-06-24] MEDS: Normal Saline Flush 10 ML SYR IVP ×2 (08:12→19:58)
[2020-06-24] MEDS: Normal Saline 1,000 ML 100 ML IV ×2 (08:29→21:03)
--- NOTE | 2020-06-24 08:34 | PGE_ITS ---
Date of Service Date of service: 06/24/20 Time of Service: 15:25 Assessment and Plan Assessment and plan (1) Infected stasis ulcer of right lower extremity: Status: Acute Assessment and plan: XR without evidence of osteomyelitis. Consider Ortho consult and MRI. Get wound care c/s. Trend CRP. No changes to abx as CRP has improved since this admission. Monitor wound. (2) MSSA bacteremia: Status: Acute Assessment and plan: Continue Cefazolin through 07/11/2020. (3) PVD (peripheral vascular disease): Status: Chronic Assessment and plan: Recent thrombectomies x3 of R SF-PT graft at [facility]. = Continue Xarelto, asa, Plavix. (4) Diabetes mellitus type 2 in nonobese: Status: Chronic Assessment and plan: Continue SSI; continue to hold glipizide (5) Hypotension: Status: Acute Assessment and plan: Remains orthostatic, but improving with IVF. Will continue. I feel at this point, the patient should be resumed on low dose beta patricia with holding parameters as his HR is starting to increase. Monitor in the ICU. Qualifiers: Hypotension type: hypotension due to hypovolemia Qualified Code(s): I95.89 - Other hypotension; E86.1 - Hypovolemia (6) Constipation: Status: Acute Assessment and plan: In setting of opioid therapy. We have intensified bowel regiment today - will continue Qualifiers: Constipation type: drug induced constipation Qualified Code(s): K59.03 - Drug induced constipation (7) Rcsue-nq-[id number] kidney injury: Status: Resolved Assessment and plan: Continue IVF due to orthostasis. (8) DVT prophylaxis: Status: Acute Assessment and plan: On therapeutic xarelto (9) Discharge planning issues: Status: Acute Assessment and plan: Full code Keep in ICU due to extremes of HR with change in position Subjective Subjective Interval history since last seen: Mr Moran states he is having a very good day today. He denies dizziness, chest pain, shortness of breath, nausea, abodminal pain. He had a very large BM and feels better. Afebrile. Alert. not sleeping 18 hrs a day anymore. Tolerating PO. Hungry. BPs 105/55 - 127/62. However, he was orthostatic and HR goes up to 160s-170s (asymptomatic). No dizziness. MAP 80 while in a chair. Agent orange exposure - face. Nursing is concerned about appearance of R medial ankle wounds and request wound care consult. Exam Narrative Exam Narrative: General: Pleasant elderly male, A&Ox3, laying comfortably in bed HEENT: EOMI, MMM, crusted over facial lesions without active bleeding Heart: RRR, no m/r/g Lungs: Crackles left base resolve with inspiration Abdomen: soft, nontender, nondistended Extremities: trace pedal pulse LLE; I am not able to feel a pedal pulse on R (nursing is); cellulitis and two ulcerations with eschar in the superior lesion over R medial maleolus. Gangrenous RLE tip of 5th digit without evidence of infection Objective Last Vital Signs Temp 36.7 C 06/24/20 04:06 Pulse 81 06/24/20 07:00 Resp 21 06/24/20 07:30 BP 113/65 06/24/20 07:00 Pulse Ox 96 06/24/20 07:30 Laboratory Results - last 24 hr 06/24/20 06/24/20 06:08 06:08 WBC 7.86 RBC 3.11 L Hgb 8.9 L Hct 27.9 L MCV 89.7 MCH 28.6 MCHC 31.9 L RDW 13.8 Plt Count 360 MPV 9.8 Immature Gran % 1.0 Neutrophils % 71.4 Lymphocytes % 14.1 Monocytes % 10.9 Eosinophils % 2.0 Basophils % 0.6 Nucleated RBC % 0 Absolute Neutrophils 5.60 Absolute Lymphocytes 1.11 L Absolute Monocytes 0.86 H Absolute Eosinophils 0.16 Absolute Basophils 0.05 RBC Morphology See below Polychromasia Present Hypochromasia 1+ Sodium 136 Potassium 3.8 Chloride 105 Carbon Dioxide 23.5 Anion Gap 7.5 BUN 21 H Creatinine 1.9 H Estimated GFR/1.73 m2 35.02 Glucose 98 Calcium 8.3 L
--- NOTE | 2020-06-24 09:02 | NUR.NOTE ---
Patient had gotten from the bed to the chair. BP 120s systolic. HR went to 140 briefly after moving back from chair to bed. had the patient lie flat for several minutes while HR decreased to 119 and then started orthostatics. The patient BP remained 102/75-113/59 lying and sitting but dropped to 75/41 when standing with HR 140s The patient felt no adverse affects. We had the patient turn and sit in the chair and his HR went to 170 for several seconds and then returned to 140s-120s. Rechecked BP while sitting and patient was 119/61, HR 118. PT in to work with the patient and saw the transfers. Nursing Note:
[2020-06-24] MEDS: Insulin Aspart 300 UNITS/3 ML PEN SC ×3 (09:32→21:18)
[2020-06-24] MEDS: Bisacodyl 5 MG TABEC PO ×2 (09:33→19:57)
[2020-06-24] MEDS: Senna TAB 1 TAB PO ×2 (09:33→19:57)
--- NOTE | 2020-06-24 10:48 | IN_ITS ---
Date of service: 06/24/20 Time of Service: 09:10 PT Notes Visit Reasons: HYPOTENSION, VOMITING, DEHYDRATION, CONSTIPATION Inpatient Physical Therapy Evaluation Date: June 24, 2020 Referring Doctor: Dania Marino PT Orders: PT CONSULT: Eval and treat Precautions: standard, falls Patient Profile/Admitting Diagnosis: Ricardo is a 70-year-old male with a history of coronary artery disease status post NSTEMI, type 2 diabetes mellitus, chronic kidney disease, peripheral arterial vascular disease status post left axillary artery to left femoral artery bypass graft, left to right femorofemoral bypass and right SFA to posterior tibial bypass with 2 prior episodes of thrombosis requiring graft thrombectomies was recently hospitalized at [facility] from June 05, 2020 through June 16, 2020 because of critical lower limb ischemia of his right leg. He was brought the ED for consultation due to nausea and vomiting. PMHX: Diabetes mellitus type 2 in nonobese DVT (deep venous thrombosis) Hyperlipidemia Non-ST elevation (NSTEMI) myocardial infarction PVD (peripheral vascular disease) STEMI (ST elevation myocardial infarction) Tobacco use disorder Surgical History (Updated 06/23/20 @ 00:08 by Silverio De León) Atheroscler nonbiologic bypass graft both legs w/intermit claudication Status post left axillary artery to left femoral artery bypass, left to right femoral-femoral bypass, right SFA-posterior tibial bypass Social History/Home Situation: Ricardo lives in an apartment in [facility], but he is currently staying with his son in [place]. His daughter also lives locally, and both children are identified as supports. He has five grandchildren, who he sees often, and enjoys watching grow up. He is independent with his ADLs, but does receive services in his son's home, and support from his children. Current Functional Limitations: Limited weight acceptance right LE. Notes stiffness and pain of the right hip/knee/ankle Equipment Owned/DME: Walker Subjective: Ricardo is agreeable to PT consult this morning. Patient notes that he has been in and out of the hospital and thought was doing well until he started to feel poorly yesterday. He has been receiving services at home. Objective: General Observation: Telemetry, IV, R LE Mental Status: Alert and oriented x3. Very pleasant Pain: 3-4/10 on visual analog scale primarily into the right lower extremity Vital Signs: Nursing was completing orthostatics and supine blood pressure 102/75 mmHg, sitting bedside 113/59 mmHg, standing dropped to 75/41 mmHg. Patient was also tachycardic with standing. ROM: Right Upper Extremity: Within normal limits and pain-free Left Upper Extremity: Within normal limits and pain-free Right Lower Extremity: Right hip flexion limited to 75 degrees, external rotation limited to 25 degrees internal rotation to 45 degrees, knee flexion tolerable to 45 degrees dorsiflexion lacking 10 degrees from neutral. Left Lower Extremity: Within normal limits and pain-free Strength: Right Upper Extremity: Demonstrates grossly 5/5 upper extremity myotomes Left Upper Extremity: Demonstrates grossly 5/5 upper extremity myotomes Right Lower Extremity: Demonstrates 4/5 hip flexion, knee extension 4+/5, knee flexion 4 -/5, dorsi flexion 4/5 Left Lower Extremity: Demonstrates grossly 5/5 left lower extremity myotomes Bed Mobility/Transfers: Supine?sit: Independent with the use of handrails Sit-stand supervision with front wheeled walker Stand?sit supervision with cueing for hand placement Bed-chair: standby assist with front wheeled walker Gait: Bed to chair due to orthostatics as above and tachycardic Balance: Static Sitting: Normal Dynamic Sitting: Normal Static Standing: Fair Dynamic Standing: Poor Special Tests: Mobility Limitations Standardized Measure [facility] AM-PAC 6 clicks Basic Mobility Inpatient Short Form: Raw Score: 16 CMS Score: 54% Informed Consent/Education: Patient instructed in purpose of PT consult and plan of care. Assessment: Patient is a 70 year old male referred to physical therapy services with the diagnosis of hypotension,dehydration. Patient presents with clinical signs and symptoms consistent with diagnosis, as demonstrated by the following impairment level findings: Impaired mobility, motor function, muscle performance with soft tissue dysfunction and hypomobility of the right ankle. Impairments are contributing to the following functional limitations: 54% AMPAC score decreased functional endurance, limited walking tolerance, decreased right LE ROM Patient is assessed as a Moderate 49317 complexity based on the following: History: As Above Examination: As Above Presentation: Evolving Decision Making: Moderate Goals: Goals X1 week 1. Supine-Sit Independent 2. Sit-Supine independent 3. Sit-Stand independent 4. Stand-Sit independent 5. Bed-Chair supervision with use of front wheeled walker 6. Chair-Bed supervision with use of front wheeled walker 7. Gait supervision weight-bear as tolerated right lower extremity with use of front wheeled walker 50 feet or greater Plan of Care/Treatment Plan: 1-2x/day, 7 days/week x 1 week. Plan of care has been reviewed with the CUTTING MACHINE TENDER providing the service under Physical Therapy direction. Initiate Physical Therapy intervention for strengthening, bed mobility, transfers, gait, stairs, balance training, use of assistive device. DISCHARGE RECOMMENDATIONS: Anticipate Ricardo will return home when medically cleared. He will resume RN, PT, OT. He will be driven via private vehicle by family. TREATMENT CODE/TIME: IE, 20 minutes [id number] 9:10 am LOREE Serrano [facility] Disclaimer: This note was created using [email or web address] voice recognition software. It was reviewed for major content. However, there may be multiple small discrep ancies and errors due to the voice recognition aspects of the software.
--- NOTE | 2020-06-24 10:54 | CMPROGNOTE_ITS ---
- If Service Date Differs Date of service: 06/24/20 Time of Service: 10:54 Care Management Progress Note S/O: Ricardo was lying in bed when CM met with him, with his [employer] hat over his eyes. He quickly awoke, and was pleasant and engaged in conversation. He stated that he is comfortable with remaining at [facility] overnight for continued monitoring. He was having a wound consult for his ankle later today. He reported that he has spoken to his sister and daughter today, and provided updates. CM will continue to follow. A: Ricardo is a 70 year old male admitted to [facility] on 06/22/20 with Hypotension, vomiting, dehydration, constipation. P: Anticipate Ricardo will return home when medically cleared. He will resume HH RN, PT, OT. He will be driven via private vehicle by family. He will follow up with his PCP and discharge plan of care. CM will continue to follow.
[2020-06-24] MEDS: Metoprolol 12.5 MG TAB PO ×2 (13:59→21:03)
[2020-06-24 14:00] LABS: C-Reactive Protein 7.75 mg/dL (0.0-0.3)
--- NOTE | 2020-06-24 14:40 | DI.VRAD_ITS ---
PROCEDURE INFORMATION: Exam: XR Right Ankle Exam date and time: 06/24/2020 2:24 PM Age: 70 years old Clinical indication: Condition or disease; Other: Cellulitis, ulcer RT ankle TECHNIQUE: Imaging protocol: XR Right ankle. Views: 3 or more views. COMPARISON: No relevant prior studies available. FINDINGS: Bones/joints: Distal tibia and fibula are intact. Soft tissues: Soft tissue swelling. IMPRESSION: Soft tissue swelling. No evidence of osteomyelitis. Dictated and Authenticated by: Segundo Ramírez MD. Ordering:TIFFANY Najera MD
--- NOTE | 2020-06-24 17:40 | WOUNDCONS_ITS ---
- If Service Date Differs Date of service: 06/24/20 Time of Service: 17:40 Wound Initial Evaluation Narrative: 06/24/20 Consult placed on patient for right inner ankle wounds. Patient has scar on rle from recent thrombectomy, as well as an area in the right groin which has been operated on. The right inner ankle distal wound is 3.5 cm x 1 cm x 0.2 cm. It has a wound bed which is 90 percent yellow slough, 10 percent pink tissue with scant serous drainage noted on old dressing. Wound periphery is shiny and pink with no increased warmth noted, the dark pink extending to cover the area around the proximal and distal wounds on the ankle. The proximal wound on the r inner ankle is 100 percent echar, no fluctuance noted. There is a small area in the eschar which appears to be marketing coordinator than the others, perhaps having been newer than the surrounding area. the eschar is firmly adherent to the wound margins. HUGO deferred d/t vascular work on leg recently. Pt reports that he is able to feel some sensation, but not pain in the area. Pt states that the wound used to be managed by home health and at one point, he had a wound vac on. Will attempt to trace where his care was done previously. - Wound right inner ankle proximal Wound Type: Full Thickness Pressure Ulcer Stage: Eschar/Unstageable Wound Bed Greatest Portion: Black (Eschar) Percent of Wound Bed Eschar/Black: 100 Wound Length: 5 cm Wound Width: 1.5 cm Wound Depth: 0.1 cm Right inner ankle distal Wound Type: Full Thickness Wound Bed Greatest Portion: Yellow (Slough) Wound Bed Lesser Portion: Pale [place] Percent of Wound Bed Granulated/Red: 10 Percent of Wound Bed Slough/Yellow: 90 Wound Length: 3.5 cm Wound Width: 1 cm Wound Depth: 0.2 cm Wound Drainage Amount: Minimal Wound Drainage Odor: None/Absent Wound Drainage Description: Serous - Circulation, Sensation, Motion Edema Degree: Trace Peripheral Pulse Strength: Normal Capillary Refill: Less than 3 seconds Sensation Description: Numbness, Tingling Skin Temperature: Warm Skin Color: Pale - Recomendation Recomendation:: Recommend- Right inner ankle proximal wound- Leave open to air as long as eschar is stable. If not, cover with mepilex. Right inner ankle distal wound- Cleanse with anasept, let dwell 2 min, pat dry, apply mepilex with border. If eschar becomes unstable, consult podiatry for inner ankle and consult podiatry for ?dti/ dry gangrene of 5th toe on right.
[2020-06-24] MEDS: Atorvastatin 40 MG TAB 80 MG PO (21:03)
[2020-06-24] MEDS: Insulin Glargine 300 UNITS/3 ML PEN 10 UNITS SC (21:04)
[2020-06-25] VITALS (36 sets, daily range): BP systolic 104–138; BP diastolic 53–84; PULSE 61–114; RESP 6–27; TEMP 36.3–37.2; O2SAT 95–100
[2020-06-25] MEDS: Acetaminophen 325 MG TAB PO ×2 (02:47→18:03)
[2020-06-25] MEDS: ceFAZolin 2 GM/50 ML BAG IVPB ×3 (04:05→21:25)
[2020-06-25] MEDS: Normal Saline Flush 10 ML SYR IVP ×3 (06:00→18:40)
[2020-06-25] MEDS: Metoprolol 12.5 MG TAB PO ×3 (06:28→21:25)
[2020-06-25 06:34] LABS: Absolute Basophil Count 0.06 10^3/uL (0.0-0.2); Absolute Eosinophil Count 0.14 10^3/uL (0.0-0.7); Absolute Lymphocyte Count 1.28 10^3/uL (1.2-3.4); Absolute Monocyte Count 0.95 10^3/uL (0.1-0.8); Absolute Neutrophil Count 5.48 10^3/uL (1.2-6.7); Basophils % 0.7; Eosinophils % 1.7; HCT 28.4 % (40.0-50.0); Immature Grans % 1.2; MCH 28.7 pg (27.0-33.0); MCHC 31.7 % (32.0-36.0); MCV 90.4 fL (80-95); MPV 9.6 fL (8.0-11.0); Monocytes % 11.9; Neutrophils % 68.5; Nucleated RBC 0 %; Platelet Count 343 10^3/uL (130-400); RBC 3.14 10^6/uL (4.36-5.78); RDW 13.6 % (11.8-14.1); RDW-SD 45.3 fL; WBC 8.01 10^3/uL (4.4-10.8)
[2020-06-25 06:45] LABS: Anion Gap 8.8 mmol/L (3-11); BUN 19 mg/dL (7-18); CO2 24.2 mmol/L (21.0-32.0); CREATININE 1.8 mg/dL (0.70-1.30); Calcium 8.5 mg/dL (8.5-10.1); Chloride 105 mmol/L (98-107); Estimated GFR 37.27 (mL/min/1.73m2); Glucose 116 mg/dL (74-106); Magnesium 1.8 mg/dL (1.8-2.4); Potassium 3.8 mmol/L (3.5-5.1); Sodium 138 mmol/L (136-145)
[2020-06-25 07:26] LABS: Procalcitonin 0.2 ng/mL
[2020-06-25] MEDS: Aspirin 325 MG TAB PO (07:54)
[2020-06-25] MEDS: Docusate Sodium 100 MG CAP PO ×3 (07:54→20:43)
[2020-06-25] MEDS: Senna TAB 1 TAB PO ×2 (07:55→20:44)
[2020-06-25] MEDS: Rivaroxaban 10 MG TABLET 20 MG PO (07:55)
[2020-06-25] MEDS: Clopidogrel 75 MG TAB PO (07:55)
[2020-06-25] MEDS: Polyethylene Glycol 3350 17 GM PACKET PO (07:56)
[2020-06-25] MEDS: Omeprazole 20 MG CAPCR PO ×2 (07:56→20:43)
--- NOTE | 2020-06-25 08:21 | W.PM.PROGNOT ---
Date of Service Date of service: 06/25/20 Time of Service: 10:08 Assessment and Plan Assessment and plan (1) Infected stasis ulcer of right lower extremity: Status: Acute Assessment and plan: XR without evidence of osteomyelitis. Appreciate orthopedic input. Await MRI. Will consult vascular with results of MRI to make further plans. Continue wound care (agree with collagenase). Trend CRP (very slightly higher than yesterday). Continue cefazolin. (2) MSSA bacteremia: Status: Acute Assessment and plan: Continue Cefazolin through 07/11/2020. (3) PVD (peripheral vascular disease): Status: Chronic Assessment and plan: Recent thrombectomies x3 of R SF-PT graft at [facility]. Read discussion above re consult with vascular surgery - may require transfer depending on the MRI. Continue Xarelto, asa, Plavix. (4) Diabetes mellitus type 2 in nonobese: Status: Chronic Assessment and plan: Continue SSI; continue to hold glipizide (5) Hypotension: Status: Resolved Assessment and plan: In addition, no longer orthostatic. Tolerating beta blockers. D/c IVF; continue to hold simon-i and imdur. Transfer out of ICU. Qualifiers: Hypotension type: hypotension due to hypovolemia Qualified Code(s): I95.89 - Other hypotension; E86.1 - Hypovolemia (6) Constipation: Status: Resolved Assessment and plan: Continue bowel regimen. Qualifiers: Constipation type: drug induced constipation Qualified Code(s): K59.03 - Drug induced constipation (7) [id number] kidney injury: Status: Resolved Assessment and plan: monitor Cr off of IVF. (8) DVT prophylaxis: Status: Acute Assessment and plan: On therapeutic xarelto (9) Discharge planning issues: Status: Acute Assessment and plan: Full code Transfer out of ICU to [facility] with tele. May require transfer to [facility] (vs down and back while on Swing bed) depending on the results of the MRI tomorrow. Subjective Subjective Interval history since last seen: Slept well. Denies dizziness, chest pain, shortness of breath, nausea. States he is having 2 different types of pain in his right leg, but both are relieved with oxycodone/tylenol. He finds tylenol very helpful. The pain in his lower leg is shooting; the pain in his upper leg is achy. Not requiring O2. 99% RA. Orthostatics last night. HR did not go up. UOP good. Not retaining urine. 2 Large BMs yesterday and 1 today. Seen by ortho: ankle felt to not be septic, but MRI and evaluation by vascular (inpatient or outpatient) were still recommended. Exam Narrative Exam Narrative: General: Pleasant elderly male, A&Ox3, laying comfortably in bed, looks well HEENT: EOMI, MMM, crusted over facial lesions, some of them oozing Heart: RRR, no m/r/g Lungs: CTAB Abdomen: soft, nontender, nondistended Extremities: trace pedal pulse LLE; I am not able to feel a pedal pulse on R; superior RLE wound with eschar and surrounding erythema, unchanged from yesterday; lower medial ankle wound is dressed - c/d/i; gangrene RLE 5th digit - dry, not infected Objective Last Vital Signs Temp 37.1 C 06/25/20 04:10 Pulse 61 06/25/20 06:01 Resp 19 06/25/20 05:01 BP 134/53 L 06/25/20 06:01 Pulse Ox 95 06/25/20 04:10 Laboratory Results - last 24 hr 06/24/20 06/25/20 06/25/20 06:08 06:10 06:10 WBC 8.01 RBC 3.14 L Hgb 9.0 L Hct 28.4 L MCV 90.4 MCH 28.7 MCHC 31.7 L RDW 13.6 Plt Count 343 MPV 9.6 Immature Gran % 1.2 Neutrophils % 68.5 Lymphocytes % 16.0 Monocytes % 11.9 Eosinophils % 1.7 Basophils % 0.7 Nucleated RBC % 0 Absolute Neutrophils 5.48 Absolute Lymphocytes 1.28 Absolute Monocytes 0.95 H Absolute Eosinophils 0.14 Absolute Basophils 0.06 Sodium 138 Potassium 3.8 Chloride 105 Carbon Dioxide 24.2 Anion Gap 8.8 BUN 19 H Creatinine 1.8 H Estimated GFR/1.73 m2 37.27 Glucose 116 H Calcium 8.5 Magnesium 1.8 C-Reactive Protein 7.75 H 7.90 H Procalcitonin 06/25/20 06:10 WBC RBC Hgb Hct MCV MCH MCHC RDW Plt Count MPV Immature Gran % Neutrophils % Lymphocytes % Monocytes % Eosinophils % Basophils % Nucleated RBC % Absolute Neutrophils Absolute Lymphocytes Absolute Monocytes Absolute Eosinophils Absolute Basophils Sodium Potassium Chloride Carbon Dioxide Anion Gap BUN Creatinine Estimated GFR/1.73 m2 Glucose Calcium Magnesium C-Reactive Protein Procalcitonin 0.2
[2020-06-25] MEDS: Insulin Aspart 300 UNITS/3 ML PEN SC ×5 (09:00→20:50)
[2020-06-25] MEDS: Silver sulfaDIAZINE 1% 25 GM TUBE TP (12:00)
--- NOTE | 2020-06-25 12:24 | SCONE_ITS ---
Date of service: 06/25/20 Time of Service: 12:24 Assessment and Plan Assessment and plan (1) Arterial leg ulcer: Status: Acute (2) Arterial insufficiency with ischemic ulcer: Status: Acute (3) Infected stasis ulcer of right lower extremity: Status: Acute Assessment and plan: This is debrided today. The superior wound is 5 x 2 cm in its largest dimensions. It is down to the fat. The surrounding tissue is erythematous, and has the appearance of acute infection. He [place] [facility] The wounds were not re-cultured. Informed consent is obtained explaining risks and benefits of the procedure including but not limited to bleeding, infection, scarring, need for further debridement, complications of anesthesia. The area is prepped and draped in usual sterile fashion using a Betadine scrub solution. Timeout was performed. The wound is infiltrated with 20 cc of 1% lidocaine. The nonviable tissue was removed. Is down to the fat. X2 stitches of 4-0 nylon are placed at the 3 o'clock position for a laceration sustained in prior debridement; electrocautery is used to provide hemostasis. We did a ttempt to place a wound VAC but this caused further bleeding. Gelfoam hemostatic agent is applied to the small area of venous bleeding. the foot is lightly wrapped it ZACH dressing is applied. Frequent checks. If there is any bleeding hold direct pressure. the inferior swound is irregular in shape and 4x2cm at widest. It is down to dermis. None viable tissue is sharply debrided as well/at the same time. Wound edges are erthymatous. -Use silver dressings/silvadene. -PT. encouraging walking. -cont anticoags -will try wound vac agin in 24 hrs Patient is at high risk for amputation of the foot. Right #5 toe shows greater than 50% dry gangrene and is nonviable -will have to wait and see if there is any healing of wounds -MRI for osteo in am 60 mins spent in counseltatino/reviewing chart/doing procedure/wound care (4) Wlcbz-ki-sohfrtm kidney injury: Status: Resolved (5) MSSA bacteremia: Status: Acute Assessment and plan: Patient has completed two of 6 weeks of IV antibiotics. 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 MSSA. bactremia. non- biologic graft in place . Currently hemodynamically stable. 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 Status post left axillary artery to left femoral artery bypass, left to right femoral-femoral bypass, right SFA-posterior tibial bypass Social History Smoking/Tobacco Use Status: Former Tobacco Use Smoking risk assessment performed?: Yes Alcohol Intake: never Drug use: Socially Substance use type: marijuana Do you feel safe at home: Yes Do you feel safe in your relationship?: Yes Exam Const General: frail appearing Orientation: alert, awake and oriented x3 HENMT Other: no jaundice edentoulus diffuse excoriations Resp Effort & Inspection: normal respiratory effort and able to speak in complete sentences Extrem Other: pt has had a fem-pop and mult de-clots. calf incision is well healed. +neuropathy. foot is cool- but not ischmeic. no rest pain. wounds as previously prescribed. pulses were not evaulated Results Last Vital Signs Temp 37.1 C 06/25/20 04:10 Pulse 88 06/25/20 10:08 Resp 19 06/25/20 09:01 BP 104/57 L 06/25/20 09:00 Pulse Ox 99 06/25/20 08:04 Labs Result diagrams: 06/25/20 17:18 06/25/20 06:10 Labs: Laboratory Results - last 24 hr 06/24/20 06/25/20 06/25/20 06:08 06:10 06:10 WBC 8.01 RBC 3.14 L Hgb 9.0 L Hct 28.4 L MCV 90.4 MCH 28.7 MCHC 31.7 L RDW 13.6 Plt Count 343 MPV 9.6 Immature Gran % 1.2 Neutrophils % 68.5 Lymphocytes % 16.0 Monocytes % 11.9 Eosinophils % 1.7 Basophils % 0.7 Nucleated RBC % 0 Absolute Neutrophils 5.48 Absolute Lymphocytes 1.28 Absolute Monocytes 0.95 H Absolute Eosinophils 0.14 Absolute Basophils 0.06 Sodium 138 Potassium 3.8 Chloride 105 Carbon Dioxide 24.2 Anion Gap 8.8 BUN 19 H Creatinine 1.8 H Estimated GFR/1.73 m2 37.27 Glucose 116 H Calcium 8.5 Magnesium 1.8 C-Reactive Protein 7.75 H 7.90 H Procalcitonin 06/25/20 06:10 WBC RBC Hgb Hct MCV MCH MCHC RDW Plt Count MPV Immature Gran % Neutrophils % Lymphocytes % Monocytes % Eosinophils % Basophils % Nucleated RBC % Absolute Neutrophils Absolute Lymphocytes Absolute Monocytes Absolute Eosinophils Absolute Basophils Sodium Potassium Chloride Carbon Dioxide Anion Gap BUN Creatinine Estimated GFR/1.73 m2 Glucose Calcium Magnesium C-Reactive Protein Procalcitonin 0.2
--- NOTE | 2020-06-25 12:32 | PT.INTREAT ---
Date of service: 06/25/20 Time of Service: 09:40 PT Notes Visit Reasons: HYPOTENSION, VOMITING, DEHYDRATION, CONSTIPATION Inpatient Physical Therapy Treatment Note [facility] Date: 06/25/2020 PRECAUTIONS:Standard, Fall SUBJECTIVE: Stated he feels he is feeling good today. Really is only going bed to chair and chair to bed at home. OBJECTIVE: PAIN: No complaints of pain offered with transferring chair to bed. BED MOBILITY/TRANSFERS Sit-supine: Independent with use of hand rails on bed. Sit-stand: SBA Stand-sit: SBA GAIT Assistive Device: FWW Weight bearing: P/NWB on right LE Assist: CGA Distance: 2ft chair to bed THEREX: Attempted to do some bed exercises but was only able to do UE rows prior to doctor's visit and wound care. ASSESSMENT: Tolerated transfers bed to chair and sit to supine very well with only CGA to SBA needed. PLAN: Continue with current POC, advancing as able to tolerate. TREATMENT CODE/TIME: [id number], 9:40 to 9:55 am (15')
[2020-06-25] MEDS: Normal Saline 500 ML 10 ML IV (13:07)
--- NOTE | 2020-06-25 13:54 | OCONE_ITS ---
Date of service: 06/25/20 Time of Service: 08:19 History of Present Illness History of Present Illness Chief Complaint: Right Ankle Wounds Narrative: Ricardo is a 70-year-old who has a complex vascular history. He was recently discharged from [facility] on 06/16/20 (admitted on 06/05/20). During his admission for critical right leg ischemia, he had a thrombectomy performed on the right leg. His vascular surgical history is significant for axillobifemoral bypass as well as a right SFA to posteri culture positive for MSSA. He also had one blood culture positive for MSSA as well when IV was removed which looks somewhat purulent. I reviewed the [facility] records including operative notes, wound care notes, progress notes, and discharge summary. There is very little attention paid to the right medial ankle wounds. However, they are acute per Ricardo's report. What I find somewhat confusing as there is no discussion of these could be related to arterial dysfunction and his lack of arterial flow in any of the notes but attributed to pressure. This is very unlikely but again there is no other talk about arterial injury being the culprit. Nevertheless, he had 2 blisters which are shown in the picture below per the wound care team at [facility] from June 12, 2020. There is no real documentation about any additional treatment except to keep covered if the blisters rupture. It was not thought that these were related to the infection. Nevertheless, he was discharged home with home-based antibiotics. He presented back to the emergency department on June 22 due to fatigue, nausea, vomiting, and overall malaise. On admission he had elevated blood lactate and seem to be dehydrated. He also had an elevated CRP. He has had these 2 wounds over the medial ankle which have been followed by nursing and wound care. The more superior the medial ankle wounds has a black eschar and has been observed and the more distal medial wound has been covered with a Mepilex. There is also concerned about some increasing redness over the lateral aspect the ankle. Additionally, there is concern about the black tip of his fifth toe. Aureliano reports no significant pain with the right foot. He has been able to ambulate and feels much better than he did when he first came into the hospital. Additionally, he feels he is able to move the ankle up and down with any significant limitations. He denies any fevers or chills. He denies any drainage from these wounds. He denies having any pressure to the inside of the ankle. Consults Consult date: 06/25/20 Requesting physician: Dania Marino Consult Reason Right ankle wounds Assessment and Plan Assessment and plan (1) Arterial insufficiency with ischemic ulcer: Status: Acute (2) Arterial leg ulcer: Status: Acute Assessment and plan: Ricardo is a 70-year-old with a very complex vascular history about his right leg. The examination today and his history is most indicative of this being an arterial ulcer from arterial insufficiency. The blistering which she had initially was not from pressure but likely due to a period of time of no arterial flow to that area of the tissue which is known to happen. I do not quite follow what was being done by the wound care team or the vascular team at the time of the admission but it clearly appears to be an arterial ulcer with usual appearance. The superior, medial wound has a thicke franklin black eschar which should be thin. I discussed this with the wound care team and recommend thinning with a scalpel or consideration of some crosshatching or thinning and application of a collagenase material. It is imperative that this is not pulled off in hole at is likely to remove valuable and viable tissue deep to it. The more distal wound appears to be healing, albeit slowly. I think Mepilex dressings and typical wound care could be considered as the best option. The necrosis of the tip of the fifth toe is dry gangrene. This toe tip may fall off and we can evaluate it more at that time but otherwise I would not pursue any other advanced treatment unless it shows signs of infection. I do not think any of the sites are infected. Unfortunately, there is a known complication people have arterial insufficiency and I think is important to avoid pressure anything else which could exacerbate these ulcers or cause a new one. However, this will best be followed in a vascular wound care clinic. I also think follow-up TC PO2's and toe pressures could be helpful to understand the blood flow in this area as my suspicion is that while he has adequate large vessel arterial flow his microvascular flow is quite minimal which is going to lead to chronic ulceration and delayed healing. Once again, this is without orthopedic pathology and should be evaluated by vascular surgery and the vascular team accustomed to vascular ulcers. Review of Systems All systems reviewed & are unremarkable except as noted in HPI and below PFSH Medical History Diabetes mellitus type 2 in nonobese DVT (deep venous thrombosis) Hyperlipidemia Kidney disease, chronic, stage IV (GFR 15-29 ml/min) Non-ST elevation (NSTEMI) myocardial infarction PVD (peripheral vascular disease) STEMI (ST elevation myocardial infarction) Tobacco use disorder Surgical History Atheroscler nonbiologic bypass graft both legs w/intermit claudication Status post left axillary artery to left femoral artery bypass, left to right femoral-femoral bypass, right SFA-posterior tibial bypass Social History Smoking/Tobacco Use Status: Former Tobacco Use Smoking risk assessment performed?: Yes Alcohol Intake: never Drug use: Socially Substance use type: marijuana Do you feel safe at home: Yes Do you feel safe in your relationship?: Yes Exam Narrative Exam Narrative: Aureliano is sitting upright in the chair. He is very pleasant and cooperative with examination. He is in no acute distress. He is alert and orient x3. He appears quite knowledgeable about his history and about his multiple medical elements and participates fully in the history and the exam. He does sit with significant external rotation of both legs with the lateral aspect of the right ankle resting on the foot extension of the recliner chair. He is able demonstrate active ankle dorsiflexion and plantarflexion although somewhat limited, without any pain or limitation. There is obviously to wounds over the medial aspect of the ankle. The most proximal measures approximately 6 cm in length by 2 cm in width with a thickened black eschar. I used an Adson forcep to evaluate the thickness and it appears to be at least 3 to 4 mm in thickness. It was not debrided due to the thickness of this wound. There is no surrounding erythema in this area. The more distal the medial wounds does have surrounding erythema. It is hard to say the exact size but somewhere around 3 x 2 cm. There does appear to be a granulation base to it without gross purulence. This eschar is more wet. There is no expressible fluid. No purulence. Passive range of motion of the ankle also does not cause pain. There is no palpable effusion of the ankle. There is no crepitus to palpation. There is no area of fluctuance throughout the remainder of the foot or ankle. Decreased sensation from the level of the ankle distal than the foot. No significant sensation around the more distal to medial wound slight sensation felt around the proximal medial ankle wound. No significant palpable pulses by my assessment. The lateral aspect the ankle has some slight rubor when compared to the remainder of the foot but this is blanchable and does not represent any infe ction. No areas of fluctuance in this area. On the fifth toe there is notable dry eschar with density of the skin and soft tissue and a black discoloration involving the nail and just distal to it. There are no signs of infection. No areas of erythema. Results Last Vital Signs Temp 36.3 C L 06/25/20 07:25 Pulse 103 H 06/25/20 12:00 Resp 22 06/25/20 12:00 BP 127/84 06/25/20 12:00 Pulse Ox 99 06/25/20 08:04 Labs Result diagrams: 06/25/20 06:10 06/25/20 06:10 Labs: Laboratory Results - last 24 hr 06/24/20 06/25/20 06/25/20 06:08 06:10 06:10 WBC 8.01 RBC 3.14 L Hgb 9.0 L Hct 28.4 L MCV 90.4 MCH 28.7 MCHC 31.7 L RDW 13.6 Plt Count 343 MPV 9.6 Immature Gran % 1.2 Neutrophils % 68.5 Lymphocytes % 16.0 Monocytes % 11.9 Eosinophils % 1.7 Basophils % 0.7 Nucleated RBC % 0 Absolute Neutrophils 5.48 Absolute Lymphocytes 1.28 Absolute Monocytes 0.95 H Absolute Eosinophils 0.14 Absolute Basophils 0.06 Sodium 138 Potassium 3.8 Chloride 105 Carbon Dioxide 24.2 Anion Gap 8.8 BUN 19 H Creatinine 1.8 H Estimated GFR/1.73 m2 37.27 Glucose 116 H Calcium 8.5 Magnesium 1.8 C-Reactive Protein 7.75 H 7.90 H Procalcitonin 06/25/20 06:10 WBC RBC Hgb Hct MCV MCH MCHC RDW Plt Count MPV Immature Gran % Neutrophils % Lymphocytes % Monocytes % Eosinophils % Basophils % Nucleated RBC % Absolute Neutrophils Absolute Lymphocytes Absolute Monocytes Absolute Eosinophils Absolute Basophils Sodium Potassium Chloride Carbon Dioxide Anion Gap BUN Creatinine Estimated GFR/1.73 m2 Glucose Calcium Magnesium C-Reactive Protein Procalcitonin 0.2 Imaging Imaging Studies: The x-ray of the right ankle was reviewed. This demonstrates perhaps some mild osteopenia. However, I do not see any particular lesion within the bone or around the bone. No sign of effusion. No signs of osteomyelitis. No erosions or suspicious lesions.
[2020-06-25] MEDS: Gelatin SPONGE 12-7 MM PKT 1 EACH TP (14:30)
--- NOTE | 2020-06-25 14:52 | CMPROGNOTE_ITS ---
- If Service Date Differs Date of service: 06/25/20 Time of Service: 14:52 Care Management Progress Note S/O: Ricardo was lying in bed when CM met with him. He said that he was doing well, and that he had a lot of people taking good care of him at [facility]. Previous to this admission, he had been discharged home from [facility] with home IV abx and HH RN, PT, OT. He had been very tired/fatigued at his son's home, where he was staying. Although his main complaint was constipation when he arrived, that has resolved, but the wound on his right ankle now requires attention and is keeping him at [facility]. He had his wound debrided by Dr. Matthews today. He had an Ortho consult today, regarding the wounds on his right ankle. He may require transfer vs down and back for him to see Vascular at [facility]. CM will continue to follow. A: Ricardo is a 70 year old male admitted to [facility] on 06/22/20 with Hypotension, vomiting, dehydration, constipation. P: Ricardo's wound on his right ankle will be closely observed overnight, with possible transfer tomorrow, if indicated for him to see vascular right away. Anticipate Ricardo will return home when medically cleared. He will resume HH RN, PT, OT. He will be driven via private vehicle by family. He will follow up with his PCP and discharge plan of care. CM will continue to follow.
--- NOTE | 2020-06-25 16:30 | NUR.NOTE ---
Dr. Garcia was consulted to come assess the patient's R foot for a septic joint (see his assessment). He ordered and discussed with myself and Lili Granados RN the need to use a scalpel to slice pieces of the eschar off or cut into it. At approximately 1005, Lili and I talked with the patient over the procedure of cutting into the eschar and I began small diagonal incisions through the eschar. The scalpel was pressed against a more calloused section and released as it slid over the top of the callous and made a small incision on the non-affected tissue below the wound. Incision was approximately 1.4cm long and 0.3cm deep. Pressure was applied. It was explained to the patient what happened and he repeated understanding. He felt the initial incision but then he stated that it did not hurt. Pressure was held while Dr. Marino was notified (she was in the unit.) She came and visualized the wound and consulted Dr. Matthews (Surgeon) who was finishing in the OR. I held pressure until Dr. Matthews arrived as it kept oozing without pressure. I cross cut the remaining eschar and found it had a pocket beneath the crust. Santyl was applied to the eschar while we waited for the surgeon. Dr. Matthews arrived and opted to debride the eschar and slough off the lower wound and placed 2 sutures in the incision. I discussed with her Dr. Garcia's thoughts and talked about the patient's significant PVD. She gained the patient consent and completed the debridement with 20ml of lidocaine being used. She opted for a wound vac and discussed with Lili Granados RN the risk with the patient being on anticoagulants. It was agreed upon by Dr. Matthews to see how the patient tolerated the wound vac. The patient reported that he was allergic to the wound vac dressing and that [facility] had used duoderm under the dressing on prior wound vacs. The patient had blisters from the wound vac dressing after several days of having it on prior to the duoderm in the past. I placed the duoderm and redressed the wound vac. Minimal bleeding was noted in the tube and it had ceased after approximately 20 min (Around 1220). I went and called the daughter and updated her on the eschar treatment, the inadvertent incision, and the multiple consults and interventions with Radha, Dr. Marino, and Dr. Matthews. We discussed the plan for the MRI tomorrow and then consult with [facility] vascular to either take the patient inpatient or have the patient be swing status and be transferred down and back to [facility] outpatient vascular clinic. The daughter (Amalia) expressed concern with the ongoing treatments and questioned why amputation was not a consideration yet. I told it is a consideration and the patient stated that [facility] has wanted to take his leg 3 times and he refused. She understood and was in agreement to see what [facility] was going to say this time. I then stepped away from the patient while Laurie Gambino RN was in the room. Within 45 min (1350), the wound vac was beeping and I joined Laurie and found the dressing to be leaking and the leg was mottled and purplish. The wound vac was stopped immediately. Blood output had restarted and there was approximately 40ml in the canister. Dressing was removed, a large clot was present and oozing still present. Pressure was applied after wound vac foam removed. Small oozing from top and bottom corners of wound. Incision intact with sutures and approximated. Dr. Matthews called and paged to the unit. She came and cauterized one vessel successfully and had to use coagulating foam for the remaining vessel. Gauze placed and foot wrapped in gauze and simon bandage.The color returned to the leg. HIGH SPEED OPERATOR had gone to 7sec while leg was mottled and returned to 3sec within 20 min. Pedal pulses remained present the entire time. Patient is now resting in the bed after having moved back in from the chair. Dr. Marino is ordering a follow-up H&H as EBL between all events was approximated by nursing at (150-250ml). Dr. Matthews ordered for silvadene on both wounds daily. Silvadene was placed on the distal wound prior to the wound vac. Nursing Note:
[2020-06-25] MEDS: IRON SUCROSE COMPLEX 300 MG in Normal Saline 250 ML 167 MG IVPB (16:46)
[2020-06-25 17:29] LABS: HCT 29.6 % (40.0-50.0); HGB 9.6 g/dL (13.5-17.5)
[2020-06-25] MEDS: Atorvastatin 40 MG TAB 80 MG PO (20:44)
[2020-06-25] MEDS: Bisacodyl 5 MG TABEC PO (20:44)
[2020-06-25] MEDS: oxyCODONE 5 MG TAB PO (20:44)
[2020-06-25] MEDS: Insulin Glargine 300 UNITS/3 ML PEN 10 UNITS SC (20:49)
[2020-06-26] VITALS (19 sets, daily range): BP systolic 92–144; BP diastolic 35–90; PULSE 74–111; RESP 13–26; TEMP 36.4–37.5; O2SAT 94–99
[2020-06-26] MEDS: Acetaminophen 325 MG TAB PO ×3 (00:02→22:58)
[2020-06-26] MEDS: Normal Saline Flush 10 ML SYR IVP ×6 (00:03→20:04)
[2020-06-26] MEDS: Metoprolol 12.5 MG TAB PO ×3 (05:44→21:51)
[2020-06-26] MEDS: ceFAZolin 2 GM/50 ML BAG IVPB ×3 (05:44→21:51)
[2020-06-26 07:08] LABS: Anion Gap 6.8 mmol/L (3-11); BUN 17 mg/dL (7-18); C-Reactive Protein 7.64 mg/dL (0.0-0.3); CO2 25.2 mmol/L (21.0-32.0); CREATININE 1.7 mg/dL (0.70-1.30); Calcium 8.5 mg/dL (8.5-10.1); Chloride 104 mmol/L (98-107); Estimated GFR 39.82 (mL/min/1.73m2); Glucose 136 mg/dL (74-106); Magnesium 1.7 mg/dL (1.8-2.4); Potassium 3.7 mmol/L (3.5-5.1); Sodium 136 mmol/L (136-145)
[2020-06-26] MEDS: Docusate Sodium 100 MG CAP PO ×3 (08:18→20:04)
[2020-06-26] MEDS: Omeprazole 20 MG CAPCR PO ×2 (08:18→20:04)
[2020-06-26] MEDS: Rivaroxaban 10 MG TABLET 20 MG PO (08:18)
[2020-06-26] MEDS: Clopidogrel 75 MG TAB PO (08:18)
[2020-06-26] MEDS: Senna TAB 1 TAB PO ×2 (08:18→20:04)
[2020-06-26] MEDS: oxyCODONE 5 MG TAB PO ×2 (08:18→22:58)
[2020-06-26] MEDS: Polyethylene Glycol 3350 17 GM PACKET PO (08:19)
[2020-06-26] MEDS: Aspirin 325 MG TAB PO (08:19)
[2020-06-26] MEDS: Insulin Aspart 300 UNITS/3 ML PEN SC ×6 (08:20→21:52)
--- NOTE | 2020-06-26 08:37 | W.PM.PROGNOT ---
Date of Service Date of service: 06/26/20 Time of Service: 15:32 Assessment and Plan Assessment and plan (1) Infected stasis ulcer of right lower extremity: Status: Acute Assessment and plan: XR without evidence of osteomyelitis. Appreciate orthopedic input. The patient was seen by general surgery who debrided both of the RLE ulcer, but it is felt that these are poor candidates for healing. There is no evidence of OM on MRI, but there is evidence of bone infarcts. Case discussed with [facility] vascular surgery and patient was accepted in transfer to [facility] by Dr Miranda, pending bed availability. I agree that the patient might require an amputation. Continue cefazolin. (2) MSSA bacteremia: Status: Acute Assessment and plan: Continue Cefazolin through 07/11/2020. (3) PVD (peripheral vascular disease): Status: Chronic Assessment and plan: Recent thrombectomies x3 of R SF-PT graft at [facility]. Transfer to [facility] vascular surgery. Continue Xarelto, asa, Plavix. (4) Diabetes mellitus type 2 in nonobese: Status: Chronic Assessment and plan: Continue SSI; continue to hold glipizide (5) Hypotension: Status: Resolved Assessment and plan: In addition, no longer orthostatic. Tolerating beta blockers. Continue to hold simon-i and imdur. Qualifiers: Hypotension type: hypotension due to hypovolemia Qualified Code(s): I95.89 - Other hypotension; E86.1 - Hypovolemia (6) Constipation: Status: Resolved Assessment and plan: Continue bowel regimen. Qualifiers: Constipation type: drug induced constipation Qualified Code(s): K59.03 - Drug induced constipation (7) [id number] kidney injury: Status: Resolved Assessment and plan: monitor Cr off of IVF. (8) DVT prophylaxis: Status: Acute Assessment and plan: On therapeutic xarelto (9) Discharge planning issues: Status: Acute Assessment and plan: Full code Accepted in transfer to [facility] Vascular surgery By Dr Miranda, pending bed availability. Subjective Subjective Interval history since last seen: Mr Moran ended up getting debridement of both vascular ulcers yesterday. He has been thinking and is accepting that he will have to have an amputation of some part of his RLE. He is willing to go to [facility] to get this done. Tmax 37.5. 1+ pitting edema RLE. RLE dressed. SBPs 100-123, HR normal. HR 110 when he gets up. Dressing did not have to be changed overnight. Ate 100% of the meal. Exam Narrative Exam Narrative: General: Pleasant elderly male, A&Ox3, laying comfortably in bed, looks well HEENT: EOMI, MMM, crusted over facial lesions, some of them oozing blood Heart: RRR, no m/r/g Lungs: CTAB Abdomen: soft, nontender, nondistended Extremities: trace pedal pulse LLE; I am not able to feel a pedal pulse on R; Wounds R ankle are dressed - c/d/i; gangrene RLE 5th digit - dry, not infected Objective Last Vital Signs Temp 37.5 C 06/26/20 08:30 Pulse 111 H 06/26/20 08:30 Resp 16 06/26/20 07:01 BP 127/90 06/26/20 08:00 Pulse Ox 95 06/26/20 04:17 Laboratory Results - last 24 hr 06/25/20 06/26/20 17:18 06:20 Hgb 9.6 L Hct 29.6 L Sodium 136 Potassium 3.7 Chloride 104 Carbon Dioxide 25.2 Anion Gap 6.8 BUN 17 Creatinine 1.7 H Estimated GFR/1.73 m2 39.82 Glucose 136 H Calcium 8.5 Magnesium 1.7 L C-Reactive Protein 7.64 H Objective Narrative Objective Narrative: MRI RLE: 1. No definite evidence to suggest osteomyelitis. 2. Soft tissue defect medial to the Achilles tendon consistent with the patient's ulcer. 3. Abnormal signal in multiple bones of the lower leg and foot as described above most suspicious for bone infarcts.
--- NOTE | 2020-06-26 11:30 | PT.INNT ---
Date of service: 06/26/20 Time of Service: 11:30 PT Notes Visit Reasons: HYPOTENSION, VOMITING, DEHYDRATION, CONSTIPATION 06/26/2020 Ricardo was not available for morning PT session. Will attempt to resume PT services this afternoon.
[2020-06-26] MEDS: MAGNESIUM SULFATE 2 GM/50 ML BAG IVPB (11:50)
[2020-06-26] MEDS: Gadoterate meglumine 20 ML VIAL 17 ML IVP (13:15)
--- NOTE | 2020-06-26 13:30 | DI.MRI_ITS ---
EXAM: MR LOWER EXTREMITY RT WO/W CLINICAL HISTORY: MRI lower tib/fib and ankle:?abscess/OM, septic TECHNIQUE: Multiplanar multisequence MRI of Pelvis was performed. CONTRAST MATERIAL: IV Contrast: 17 mL of Dotarem contrast administered. COMPARISON: CR,XR XR ANKLE RT COMPLETE from 06/24/2020 FINDINGS: Bones: There is no fracture or contusion pattern. There are lesions seen in multiple bones with lori lar characteristics. On T2 weighted images, these lesions show hypointense signal centrally with a hy perintense rim. On T1 weighted images, the central areas are isointense to marrow surrounded by hypoi ntense signal. Following contrast administration, the thin peripheral boundary enhances. Lesions like this are seen in the tibia, the proximal visualized portions of all the metatarsals, and all of the tarsal bones with sparing of the cuneiforms. The findings are most suspicious for bone infarcts. Mild marrow edema is associated with a few of these lesions. There are no findings to suggest osteomyelit is. Musculotendinous structures: Musculotendinous structures demonstrate no abnormality. Soft tissues: There is a soft tissue defect medial to the Achilles tendon superior to the level of th e ankle mortise. There is normal signal in the adjacent Achilles tendon and medial ankle tendons. No focal fluid collection is seen to suggest an abscess. IMPRESSION: 1. No definite evidence to suggest osteomyelitis. 2. Soft tissue defect medial to the Achilles tendon consistent with the patient's ulcer. 3. Abnormal signal in multiple bones of the lower leg and foot as described above most suspicious for bone infarcts. DATA REPOSITORY:
--- NOTE | 2020-06-26 14:23 | PT.INTREAT ---
Date of service: 06/26/20 Time of Service: 14:00 PT Notes Visit Reasons: HYPOTENSION, VOMITING, DEHYDRATION, CONSTIPATION Inpatient Physical Therapy Treatment Note [facility] Date: 06/26/20 PRECAUTIONS:fall, standard SUBJECTIVE: Buck states that he is feeling well. He is interested in exercises to complete in his room. OBJECTIVE: PAIN: denies currently BED MOBILITY/TRANSFERS Rolling L/R: independent Supine-sit: independent Sit-supine: independent Sit-stand: deferred THEREX: Patient was instructed in a therex program for supine and seated exercises. He was instructed in independent completion between sessions, and demonstrated good understanding and technique. During completion, he demonstrated good safety awareness with regards to protecting right foot. Full program can be found on flowsheet. ASSESSMENT: Instructed in therex program for independent completion. PLAN: continue with PT intervention to maximize strength and mobility. TREATMENT CODE/TIME: 2:00-2:25 ([id number]) Rosmery Rodriguez, PT, DPT [facility]
--- NOTE | 2020-06-26 16:12 | PDOC.CMPRO ---
- If Service Date Differs Date of service: 06/26/20 Time of Service: 16:12 Care Management Progress Note S/O: Buck was having an MRI today, which will help guide his care moving forward. Per report, there is no evidence of osteomyelitis, but there is evidence of bone infarcts. Buck stated that he didn't sleep much last night thinking about the fact that he may lose a foot or a leg, but he has come to terms with it. He reported that he talked to his children today, updating them. Per report he was accepted in transfer to [facility], pending bed availability. CM will continue to follow. A: Ricardo is a 70 year old male admitted to [facility] on 06/22/20 with Hypotension, vomiting, dehydration, constipation. P: Ricardo was accepted by [facility] in transfer, and is now awaiting a bed. He will transport to [facility] via ambulance. Once he returns home, he will have a resumption of services. He will follow up with his PCP and discharge plan of care. CM will continue to follow.
[2020-06-26] MEDS: Insulin Glargine 300 UNITS/3 ML PEN 10 UNITS SC (21:51)
[2020-06-26] MEDS: Atorvastatin 40 MG TAB 80 MG PO (21:51)
--- NOTE | 2020-06-26 22:59 | NUR.NOTE ---
AT 1999 RECEIVED A CALL from [facility] there will be no bed for the pt marisela. at 2049 received another call asking what is delaying the patient from arriving. Advised them that we received a call from [facility] about a hour ago stating that we would not have a bed until morning but he will be first on the list for transfer. Nursing Note:
[2020-06-27] VITALS (7 sets, daily range): BP systolic 117–145; BP diastolic 9–84; PULSE 72–105; RESP 14–17; TEMP 36.8–37.7; O2SAT 96–99
[2020-06-27] MEDS: Normal Saline Flush 10 ML SYR IVP ×3 (05:29→13:17)
[2020-06-27] MEDS: Metoprolol 12.5 MG TAB PO ×2 (05:29→13:17)
[2020-06-27] MEDS: ceFAZolin 2 GM/50 ML BAG IVPB ×2 (05:29→13:17)
[2020-06-27 07:06] LABS: Abs Immature Grans 0.09 10^3/uL (0.0-0.06); Absolute Basophil Count 0.06 10^3/uL (0.0-0.2); Absolute Eosinophil Count 0.16 10^3/uL (0.0-0.7); Absolute Lymphocyte Count 1.38 10^3/uL (1.2-3.4); Absolute Monocyte Count 0.97 10^3/uL (0.1-0.8); Absolute Neutrophil Count 6.46 10^3/uL (1.2-6.7); Basophils % 0.7; Eosinophils % 1.8; HCT 28.6 % (40.0-50.0); HGB 9.3 g/dL (13.5-17.5); Lymphocytes % 15.1; MCH 28.9 pg (27.0-33.0); MCHC 32.5 % (32.0-36.0); MCV 88.8 fL (80-95); MPV 9.9 fL (8.0-11.0); Monocytes % 10.6; Neutrophils % 70.8; Nucleated RBC 0 %; Platelet Count 355 10^3/uL (130-400); RBC 3.22 10^6/uL (4.36-5.78); RDW 13.7 % (11.8-14.1); RDW-SD 44.9 fL; WBC 9.12 10^3/uL (4.4-10.8)
[2020-06-27 07:34] LABS: Anion Gap 6.3 mmol/L (3-11); BUN 17 mg/dL (7-18); CO2 26.7 mmol/L (21.0-32.0); CREATININE 1.7 mg/dL (0.70-1.30); Calcium 8.7 mg/dL (8.5-10.1); Chloride 104 mmol/L (98-107); Estimated GFR 39.82 (mL/min/1.73m2); Glucose 134 mg/dL (74-106); Potassium 3.9 mmol/L (3.5-5.1); Sodium 137 mmol/L (136-145)
[2020-06-27] MEDS: Aspirin 325 MG TAB PO (09:33)
[2020-06-27] MEDS: Omeprazole 20 MG CAPCR PO (09:34)
[2020-06-27] MEDS: Rivaroxaban 10 MG TABLET 20 MG PO (09:34)
[2020-06-27] MEDS: Docusate Sodium 100 MG CAP PO ×2 (09:35→13:17)
[2020-06-27] MEDS: Clopidogrel 75 MG TAB PO (09:35)
[2020-06-27] MEDS: Senna TAB 1 TAB PO (09:35)
[2020-06-27] MEDS: Silver sulfaDIAZINE 1% 25 GM TUBE TP ×2 (09:37→10:53)
[2020-06-27] MEDS: Insulin Aspart 300 UNITS/3 ML PEN SC ×5 (09:41→17:15)
[2020-06-27] MEDS: oxyCODONE 5 MG TAB PO (11:06)
[2020-06-27] MEDS: Acetaminophen 325 MG TAB PO (11:07)
--- NOTE | 2020-06-27 12:23 | W.PM.DS.N ---
Date of service: 06/27/20 Time of Service: 12:24 DS: Diagnosis Discharge Diagnosis (1) Arterial insufficiency with ischemic ulcer: Status: Acute Asessment and Plan: x2 on RLE; nonhealing (2) PVD (peripheral vascular disease): Status: Chronic (3) MSSA bacteremia: Status: Acute (4) [id number] kidney injury: Status: Resolved (5) Orthostatic hypotension: Status: Resolved (6) Acute dehydration: Status: Resolved (7) Dry gangrene: Status: Chronic (8) Constipation: Status: Resolved (9) Nausea and vomiting: Status: Resolved (10) AAA (abdominal aortic aneurysm): Status: Chronic (11) Diabetes mellitus type 2 in nonobese: Status: Chronic (12) CAD (coronary artery disease): Status: Chronic (13) Folic acid deficiency anemia: Status: Chronic (14) COVID-19 ruled out by laboratory testing: Status: Ruled-out Discharge Plan Disposition Patient Disposition: [facility] Condition: Fair Discharge Details Reason For Visit: HYPOTENSION, VOMITING, DEHYDRATION, CONSTIPATION Admit Date/Time: 06/22/20 19:49 Admit Provider: Silverio De León Attending Provider: Silverio De León Primary Care Provider: Daniele Chambers Hospital Course Hospital Course: Mr Moran is a 70 year old male with PMHx of PAD s/p recent [place] [facility] well as MSSA bacteremia on cefazolin (course to finish on 07/11/2020; has a PICC line), CKD stage IV, IDDM2, who was admitted to [facility] ICU under the hospitalist service on 06/22/2020 with hypotension, as well as nausea and vomiting in setting of constipation, and excessive somnolence at home. Breakthrough bacteremia was ruled out with repeat blood cultures. He was treated with IVF and maintained on cefazolin with resolution of hypotension/orthostasis. Patient's abdominal complaints resolved with aggressive bowel regimen and hydration. He was transferred out of the ICU on 06/25/2020. At the same time, the patient's two arterial insufficiency ulcers on his medial right ankle started to look infected. We ensured there was no underlying osteomyelitis or abscess with an MRI. The patient was seen by orthopedics to ensure that the ankle (where he had erythema on both condyles at the time of examination) was not septic - discoloration was felt to be due to pressure rather than septic joint. General surgery debrided escar off of the superior ulcer, but strongly felt that the patient requires a vascular evaluation as these ulcers are unlikely to heal. The patient states that he has accepted that he might need an amputation of a part of his leg and is willing to do whatever needs to be done to improve his quality of life. Case was discussed [place] [facility] [place], and the patient was accepted in transfer by Dr Miranda. He is hemodynamically stable and is agreeable to transfer. Care for patient as well as completion of his discharge summary on day of transfer took 45 minutes. For list of current inpatient medications, please see JUN. Home Meds and New Rx's Prescriptions: No Action metoprolol succinate 100 MG tablet extended release 24 hr 100 mg PO DAILY 90 Days Qty: 90 RF: 4 atorvastatin [Lipitor] 80 MG tablet 80 mg PO HS RF: 0 clopidogrel [Plavix] 75 MG tablet 75 mg PO DAILY RF: 0 lisinopril 10 MG tablet 10 mg PO DAILY RF: 0 nitroglycerin [Nitrostat] 0.4 MG tablet, sublingual 0.4 mg Sublingual DIRECTED RF: 0 acetaminophen [Tylenol] 325 MG tablet 650 mg PO Q6H PRN PRNRF: 0 isosorbide mononitrate 60 MG tablet extended release 24 hr 120 mg PO DAILY Qty: 60 RF: 3 (DME) blood sugar diagnostic [Blood Glucose Test] 1 EACH strip 1 ea Sub-Q AC Qty: 100 RF: 3 aspirin 325 mg Tablet 325 mg PO DAILY RF: 0 omeprazole 20 mg Capsule,Delayed Release(Dr/Ec) 20 mg PO BID RF: 0 hydroxyzine HCl 25 mg Tablet 25 mg PO QHS PRNRF: 0 rivaroxaban 20 mg Tablet 20 mg PO DAILY RF: 0 cefazolin 1 gram Piggyback 2 g IV TID RF: 0 Lantus Solostar U-100 Insulin 300 UNITS/3 ML insulin pen 32 units Sub-Q HS RF: 0 Victoza 2-Elias 0.6 mg/0.1 mL (18 mg/3 mL) Pen Injector 1.2 mg SUBCUT DAILY RF: 0 oxycodone 5 mg Tablet 5 mg PO Q6H PRNRF: 0 Discharge Instructions Stand Alone Forms: Nursing Discharge Form Activity:: Activity as Tolerated Diet:: Carb Counting Discharge Orders Discharge Orders: Discharge Order (Routine); Ordered 06/27/20 Ordered By: Dania Marino DS: Summary Time Spent with Patient providing and/or coordinating discharge services: Greater than 30 minutes Status at Discharge Functional status at discharge: wheelchair bound Overall status at discharge: patient is not back to baseline Mental Status: mental status grossly normal Speech and Movement: speech and movement normal Mood: congruent mood Affect: normal affect Exam Narrative Exam Narrative: General: Pleasant elderly male, A&Ox3, laying comfortably in bed, looks well HEENT: EOMI, MMM, crusted over facial lesions Heart: RRR, no m/r/g Lungs: CTAB Abdomen: soft, nontender, nondistended Extremities: trace pedal pulse on R, but I am not palpating it on L today; Wounds R ankle are dressed - c/d/i; gangrene RLE 5th digit - dry, not infected Psych Mental Status: mental status grossly normal Speech and Movement: speech and movement normal Affect: normal affect DS: Data Vitals/I&O Vitals and I&O: Vital Signs Temperature 36.9 C 06/27/20 11:00 Temperature Source Tympanic 06/27/20 11:00 Pulse 72 06/27/20 11:00 Pulse Rhythm Regular 06/27/20 08:30 Pulse Strength Weak 06/27/20 11:47 Pulse 108 H 06/26/20 08:00 Respiratory Rate 14 06/27/20 11:00 Respiratory Effort Non-Labored 06/27/20 08:30 Respiratory Depth Normal 06/27/20 08:30 Respiratory Pattern Normal 06/27/20 08:30 Blood Pressure 117/78 06/27/20 11:00 Blood Pressure Mean 98 06/26/20 08:00 Blood Pressure Position Sitting 06/24/20 13:45 Pulse Oximetry 99 06/27/20 11:00 Oxygen Delivery Method Room Air 06/27/20 11:00 Oxygen Flow Rate 0 06/27/20 11:00 Pain Level 3 06/27/20 11:07 Comment 06/24/20 20:55 Intake & Output 06/26/20 06/27/20 06/27/20 23:59 11:59 23:59 Intake Total 890 / 940 986.833 / 986.833 Output Total 1100 / 2650 700 / 700 Balance -210 / -1710 286.833 / 286.833 Weight 82.2 kg Intake: IV 100 / 150 436.833 / 436.833 Oral 790 / 790 550 / 550 Output: Urine 1100 / 2650 700 / 700 Other: Urine Color Yellow Yellow Urine Appearance Clear Clear Urine Odor Normal Normal Voiding Methods Urinal Urinal Data Completed and Pending Completed studies during hospitalization [Text1]: CT chest/abdomen/pelvis w/o contrast 06/22/2020: Large quantity of stool in the rectum consistent with constipation. Stable appearance abdominal aorta aneurysm with stents in place. XR ankle R 06/24/2020: No radiographic evidence to suggest acute osteomyelitis. MRI RLE 06/26/2020: 1. No definite evidence to suggest osteomyelitis. 2. Soft tissue defect medial to the Achilles tendon consistent with the patient's ulcer. 3. Abnormal signal in multiple bones of the lower leg and foot as described above most suspicious for bone infarcts. Labs on day of discharge: Labs from last 24 hours 06/27/20 06/27/20 06:40 06:40 WBC 9.12 RBC 3.22 L Hgb 9.3 L Hct 28.6 L MCV 88.8 MCH 28.9 MCHC 32.5 RDW 13.7 Plt Count 355 MPV 9.9 Immature Gran % 1.0 Neutrophils % 70.8 Lymphocytes % 15.1 Monocytes % 10.6 Eosinophils % 1.8 Basophils % 0.7 Nucleated RBC % 0 Absolute Neutrophils 6.46 Absolute Lymphocytes 1.38 Absolute Monocytes 0.97 H Absolute Eosinophils 0.16 Absolute Basophils 0.06 Sodium 137 Potassium 3.9 Chloride 104 Carbon Dioxide 26.7 Anion Gap 6.3 BUN 17 Creatinine 1.7 H Estimated GFR/1.73 m2 39.82 Glucose 134 H Calcium 8.7 Magnesium 2.0 Preliminary micro results at discharge 06/22/20 14:10 Blood Culture - Preliminary Blood NO GROWTH 96 HOURS 06/22/20 14:00 Blood Culture - Preliminary Blood NO GROWTH 96 HOURS FORMERLY [facility], [facility] Medical History (Updated 06/27/20 @ 12:51 by Dania Marino MD) CAD (coronary artery disease) Diabetes mellitus type 2 in nonobese DVT (deep venous thrombosis) Hyperlipidemia Kidney disease, chronic, stage IV (GFR 15-29 ml/min) Non-ST elevation (NSTEMI) myocardial infarction PVD (peripheral vascular disease) STEMI (ST elevation myocardial infarction) Tobacco use disorder Patient has not smoked in 5 years Surgical History (Updated 06/27/20 @ 12:51 by Dania Marino MD) Atheroscler nonbiologic bypass graft both legs w/intermit claudication Status post left axillary artery to left femoral artery bypass, left to right femoral-femoral bypass, right SFA-posterior tibial bypass Social History Smoking/Tobacco Use Status: Former Tobacco Use Smoking risk assessment performed?: Yes Alcohol Intake: never Drug use: Socially Substance use type: marijuana Do you feel safe at home: Yes Do you feel safe in your relationship?: Yes
[2020-06-27] MEDS: Folic Acid 1 MG TAB PO (13:17)
--- NOTE | 2020-06-27 14:22 | CMDISCH_ITS ---
- If Service Date Differs Date of service: 06/27/20 Time of Service: 14:22 LACE Index Scoring Tool - Questions: Length of Stay (in days): 4 - 6 Acuity (Admit via E.D.?): Yes Comorbidities: Previous M.I., PVD, Diabetes w/o Complication E.D. Visits: 5 - Answers: Total Score: 14 Risk of Readmission: High Risk Care Management Discharge Reason for Hospitalization: Hypotension, vomiting, dehydration, constipation Discharge Plan: Ricardo is being transferred to [facility] for followup with vascular surgery for leg ulcers Patient/Family Education Needs: Expectations, discharge plan, limitations, Ask Me Three Services Needed at Discharge: Transportation
--- NOTE | 2020-06-27 16:43 | NUR.NOTE ---
Nursing Note: 16:43 06/27/20 [id number] handoff [place] [facility] [place] [facility] [place] [phone].
--- NOTE | 2020-06-28 08:32 | NUR.NOTE ---
Nursing Note: Late Entry: Re 06/27/20 Morning Medications 06/28/20 08:32 This nurse expressed concern to Renee Chin and Nishi Goodwin about this patient's morning medication administration being late, medications were administered by a nursing home assistant working with Renee.
--- NOTE | 2020-06-30 09:10 | INDS_ITS ---
Date of service: 06/30/20 PT Notes Visit Reasons: HYPOTENSION, VOMITING, DEHYDRATION, CONSTIPATION Inpatient Physical Therapy Discharge Summary Date: 06/30/2020 Dates of Service: 06/24/2020 through 06/25/2020 This is a clinical summary of care provided on the duration of dates listed above. No charge was made in the completion of this documentation. Referring Doctor: Dania Mraino MD PT Orders: PT CONSULT: Eval and treat Precautions: Standard. Falls. Patient Profile/Admitting Diagnosis: Ricardo is a 70-year-old male with a history of coronary artery disease status post NSTEMI, type 2 diabetes mellitus, chronic kidney disease, peripheral arterial vascular disease status post left axillary artery to left femoral artery bypass graft, left to right femorofemoral bypass and right SFA to posterior tibial bypass with 2 prior episodes of thrombosis requiring graft thrombectomies was recently hospitalized at [facility] from June 05, 2020 through June 16, 2020 because of critical lower limb ischemia of his right leg. He was brought the ED for consultation due to nausea and vomiting. PMHX: Medical History Diabetes mellitus type 2 in nonobese DVT (deep venous thrombosis) Hyperlipidemia Non-ST elevation (NSTEMI) myocardial infarction PVD (peripheral vascular disease) STEMI (ST elevation myocardial infarction) Tobacco use disorder Surgical History (Updated 06/23/20 @ 00:08 by Silverio De León) Atheroscler nonbiologic bypass graft both legs w/intermit claudication Status post left axillary artery to left femoral artery bypass, left to right femoral-femoral bypass, right SFA-posterior tibial bypass Social History/Home Situation: Ricardo lives in an apartment in [facility] [facility], but he is currently staying with his son in [place]. His daughter also lives locally, and both children are identified as supports. He has five grandchildren, who he sees often, and enjoys watching grow up. He is independent with his ADLs, but does receive services in his son's home, and support from his children. Current Functional Limitations: Limited weight acceptance right LE. Notes stiffness and pain of the right hip/knee/ankle Equipment Owned/DME: Walker Subjective: NT. See most recent PANEL MACHINE SETTER notes. Objective: General Observation: NT. See most recent PANEL MACHINE SETTER notes. Mental Status: NT. See most recent PANEL MACHINE SETTER notes. Pain: NT. See most recent PANEL MACHINE SETTER notes. Vital Signs: NT. See most recent PANEL MACHINE SETTER notes. ROM: Right Upper Extremity: Within normal limits and pain-free Left Upper Extremity: Within normal limits and pain-free Right Lower Extremity: Right hip flexion limited to 75 degrees, external rotation limited to 25 degrees internal rotation to 45 degrees, knee flexion tolerable to 45 degrees dorsiflexion lacking 10 degrees from neutral. Left Lower Extremity: Within normal limits and pain-free Strength: Right Upper Extremity: Demonstrates grossly 5/5 upper extremity myotomes Left Upper Extremity: Demonstrates grossly 5/5 upper extremity myotomes Right Lower Extremity: Demonstrates 4/5 hip flexion, knee extension 4+/5, knee flexion 4 -/5, dorsi flexion 4/5 Left Lower Extremity: Demonstrates grossly 5/5 left lower extremity myotomes Bed Mobility/Transfers: Supine?sit: Independent with the use of handrails Sit-stand supervision with front wheeled walker Stand?sit supervision with cueing for hand placement Bed-chair: supervision with cueing for hand placement Gait: Transfers only. Limited due to NWB status on R LE. Balance: Static Sitting: Normal Dynamic Sitting: Normal Static Standing: Fair Dynamic Standing: Poor Assessment: Direct transfer to [facility] [place] for assessment for potential R LE amputaion. Patient Patient is a 70 year old male referred to physical therapy services with the diagnosis of hypotension,dehydration. Patient presents with clinical signs and symptoms consistent with diagnosis, as demonstrated by the following impairment level findings: Impaired mobility, motor function, muscle performance with soft tissue dysfunction and hypomobility of the right ankle. Impairments are contributing to the following functional limitations: 54% AMPAC score decreased functional endurance, limited walking tolerance, decreased right LE ROM Goals: Goals X1 week 1. Supine-Sit Independent MET 2. Sit-Supine independent MET 3. Sit-Stand independent NOT MET 4. Stand-Sit independent NOT MET 5. Bed-Chair supervision with use of front wheeled walker NOT MET 6. Chair-Bed supervision with use of front wheeled walker NOT MET 7. Gait supervision weight-bear as tolerated right lower extremity with use of front wheeled walker 50 feet or greater NOT MET Plan of Care/Treatment Plan: 1-2x/day, 7 days/week x 1 week. Plan of care has been reviewed with the PANEL MACHINE SETTER providing the service under Physical Therapy direction. Initiate Physical Therapy intervention for strengthening, bed mobility, transfers, gait, stairs, balance training, use of assistive device. DISCHARGE RECOMMENDATIONS: To [facility] [place] for immediate medical intervention/assessment for potential R LE amputaion. TREATMENT CODE/TIME: TX Thank you for the opportunity to participate in the care of this patient. Amanda Sheldon PT, DPT, CLT [facility] [place], [place]
== END 2020-06-27 17:26 | disposition short-term general hospital (02) | DRG 300 ==
LOC: ER 17:42 → ICU 20:46 → MS 06-26 11:27
PROVIDERS: Family Medicine; Internal Medicine; Admitting Provider Internal Medicine; Emergency Provider Physician Assistant; PCP Internal Medicine; Visit Provider Internal Medicine
DX: I70.261 Atherosclerosis of native arteries of extremities with gangrene, right leg (principal); N17.9 Acute kidney failure, unspecified; R78.81 Bacteremia; L03.115 Cellulitis of right lower limb; L97.312 Non-pressure chronic ulcer of right ankle with fat layer exposed; N18.4 Chronic kidney disease, stage 4 (severe); Z20.822 Contact with and (suspected) exposure to COVID-19; I12.9 Hypertensive chronic kidney disease with stage 1 through stage 4 chronic kidney disease, or unspecified chronic kidney disease; E11.22 Type 2 diabetes mellitus with diabetic chronic kidney disease; I25.10 Atherosclerotic heart disease of native coronary artery without angina pectoris; B95.61 Methicillin susceptible Staphylococcus aureus infection as the cause of diseases classified elsewhere; I25.2 Old myocardial infarction; E78.5 Hyperlipidemia, unspecified; Z86.718 Personal history of other venous thrombosis and embolism; Z87.891 Personal history of nicotine dependence; I95.89 Other hypotension; K57.30 Diverticulosis of large intestine without perforation or abscess without bleeding; J43.9 Emphysema, unspecified; Z79.4 Long term (current) use of insulin; E86.1 Hypovolemia; K59.03 Drug induced constipation; D52.9 Folate deficiency anemia, unspecified; I70.212 Atherosclerosis of native arteries of extremities with intermittent claudication, left leg
CPT/HCPCS: 97597; 36410; 36415; 36592; 71250; 80048; 80053; 82805; 84145; 87040; 93005; 96361; 96365; 96375; 97110; 97162; 97530; 99222; 99223; 99232; 99233; 99239; 99253; 99254; 99285; 36600; 73610; 73720; 74176; 81003; 81015; 82607; 82728; 82746; 83540; 83550; 83605; 83735; 84484; 85014; 85018; 85025; 85610; 85730; 86140; 87086; 93010; J0131; J0690; J1756; J2405; J3490

== ENCOUNTER 2020-07-03 14:20 | Outpatient (REF) | payer MEDICARE, SELFPAY ==
[2020-07-03 14:44] LABS: ALT 23 U/L (16-63); AST 30 U/L (15-37); Abs Immature Grans 0.07 10^3/uL (0.0-0.06); Absolute Basophil Count 0.06 10^3/uL (0.0-0.2); Absolute Eosinophil Count 0.16 10^3/uL (0.0-0.7); Absolute Lymphocyte Count 2.25 10^3/uL (1.2-3.4); Absolute Monocyte Count 1.08 10^3/uL (0.1-0.8); Absolute Neutrophil Count 8.03 10^3/uL (1.2-6.7); Albumin 2.4 g/dL (3.4-5.0); Alkaline Phosphatase 78 U/L (46-116); Anion Gap 7.1 mmol/L (3-11); BUN 21 mg/dL (7-18); Basophils % 0.5; Bilirubin, Total 0.3 mg/dL (0.2-1.0); C-Reactive Protein 2.94 mg/dL (0.0-0.3); CO2 26.9 mmol/L (21.0-32.0); CREATININE 1.8 mg/dL (0.70-1.30); Calcium 8.8 mg/dL (8.5-10.1); Chloride 103 mmol/L (98-107); Eosinophils % 1.4; Estimated GFR 37.27 (mL/min/1.73m2); Glucose 138 mg/dL (74-106); HCT 30.2 % (40.0-50.0); HGB 9.6 g/dL (13.5-17.5); Immature Grans % 0.6; Lymphocytes % 19.3; MCH 29.3 pg (27.0-33.0); MCHC 31.8 % (32.0-36.0); MCV 92.1 fL (80-95); MPV 10.4 fL (8.0-11.0); Monocytes % 9.3; Neutrophils % 68.9; Nucleated RBC 0 %; Platelet Count 431 10^3/uL (130-400); Potassium 4.3 mmol/L (3.5-5.1); RBC 3.28 10^6/uL (4.36-5.78); RDW 14.6 % (11.8-14.1); RDW-SD 48.7 fL; Sodium 137 mmol/L (136-145); WBC 11.65 10^3/uL (4.4-10.8)
== END 2020-07-03 14:21 | disposition home or self-care (01) ==
LOC: LBN 14:20
PROVIDERS: PCP Internal Medicine; Visit Provider Internal Medicine Infectious Disease
DX: A49.01 Methicillin susceptible Staphylococcus aureus infection, unspecified site (principal)
CPT/HCPCS: 80053; 85025; 86140

== ENCOUNTER 2020-07-10 15:39 | Outpatient (REF) | payer MEDICARE, SELFPAY ==
[2020-07-10 16:47] LABS: Abs Immature Grans 0.05 10^3/uL (0.0-0.06); Absolute Basophil Count 0.07 10^3/uL (0.0-0.2); Absolute Eosinophil Count 0.13 10^3/uL (0.0-0.7); Absolute Lymphocyte Count 1.56 10^3/uL (1.2-3.4); Absolute Monocyte Count 0.91 10^3/uL (0.1-0.8); Absolute Neutrophil Count 7.59 10^3/uL (1.2-6.7); Basophils % 0.7; Eosinophils % 1.3; HCT 30.7 % (40.0-50.0); HGB 9.7 g/dL (13.5-17.5); Immature Grans % 0.5; Lymphocytes % 15.1; MCH 29.2 pg (27.0-33.0); MCHC 31.6 % (32.0-36.0); MCV 92.5 fL (80-95); MPV 10.9 fL (8.0-11.0); Monocytes % 8.8; Neutrophils % 73.6; Nucleated RBC 0 %; Platelet Count 341 10^3/uL (130-400); RBC 3.32 10^6/uL (4.36-5.78); RDW 15.5 % (11.8-14.1); RDW-SD 52.5 fL; WBC 10.31 10^3/uL (4.4-10.8)
[2020-07-10 17:17] LABS: ALT 30 U/L (16-63); AST 17 U/L (15-37); Albumin 2.4 g/dL (3.4-5.0); Alkaline Phosphatase 69 U/L (46-116); Anion Gap 8.4 mmol/L (3-11); BUN 18 mg/dL (7-18); Bilirubin, Total 0.4 mg/dL (0.2-1.0); C-Reactive Protein 2.47 mg/dL (0.0-0.3); CO2 28.6 mmol/L (21.0-32.0); CREATININE 1.5 mg/dL (0.70-1.30); Calcium 8.7 mg/dL (8.5-10.1); Chloride 103 mmol/L (98-107); Glucose 143 mg/dL (74-106); Potassium 3.8 mmol/L (3.5-5.1); Sodium 140 mmol/L (136-145); Total Protein 7.7 g/dL (6.4-8.2)
== END 2020-07-10 15:40 | disposition home or self-care (01) ==
LOC: LBN 15:39
PROVIDERS: PCP Internal Medicine; Visit Provider Internal Medicine Infectious Disease
DX: R78.81 Bacteremia (principal); B95.61 Methicillin susceptible Staphylococcus aureus infection as the cause of diseases classified elsewhere; L03.115 Cellulitis of right lower limb; L97.312 Non-pressure chronic ulcer of right ankle with fat layer exposed
CPT/HCPCS: 80053; 85025; 86140

== ENCOUNTER 2021-07-19 06:56 | Inpatient (IN) | payer MEDICARE, SELFPAY ==
[2021-07-19] VITALS (26 sets, daily range): BP systolic 106–177; BP diastolic 57–88; PULSE 53–77; RESP 16–21; TEMP 36.4–36.9; O2SAT 84–97
--- NOTE | 2021-07-19 | DI.MRI_ITS ---
Exam(s) MR LUMBAR SPINE WO EXAM: MR LUMBAR SPINE WO CLINICAL HISTORY: intractable back pain. TECHNIQUE: Multiplanar multisequence MRI of the Lumbar spine was performed. COMPARISON: No exams were available for comparison FINDINGS: There is artifact from the patient's aorto bi iliac stent. Bones: The last intervertebral disc space is designated the L5/S1 level for the numbering purpose of this examination. The vertebral body heights are well maintained. Alignment is satisfactory. The si gnal characteristics are unremarkable. Cord: The conus tip ends at the T12 level. It is of normal size and signal intensity. T12-L1: No disc herniations or bulges are present. No central spinal canal or neural foraminal stenos is. L1-2: No disc herniations or bulges are present. No central spinal canal or neural foraminal stenosis . L2-3: No disc herniations or bulges are present. No central spinal canal or neural foraminal stenosis . L3-4: No disc herniations or bulges are present. No central spinal canal or neural foraminal stenosis . L4-5: There is a mild diffuse disc bulge. Mild degenerative changes of the facets are seen. There i s mild narrowing of the central spinal canal. No significant neural foraminal stenosis is present. L5-S1: No focal disc herniation. There are hypertrophic changes of the facets. This does result in mild narrowing of the neural foramen bilaterally. No significant central spinal canal stenosis is pr esent. Soft tissues: The visualized SI joints and sacrum are well maintained. The paraspinal soft tissues ar e unremarkable. IMPRESSION: 1. Examination limited due to artifact from the patient's aortic stent. 2. Multilevel degenerative changes in the lumbar spine. The findings result in mild central spinal c anal stenosis at L4-L5 and bilateral neural foraminal stenosis at L5-S1. DATA REPOSITORY:
--- NOTE | 2021-07-19 07:21 | DI.CT_ITS ---
Exam(s) CT LUMBAR SPINE RECONS CT ABDOMEN PELVIS WO EXAM: CT ABDOMEN PELVIS WO and CT lumbar spine recons CLINICAL HISTORY: lower back pain. TECHNIQUE: Imaging Protocol: Axial computed tomography images with coronal and sagittal reformatted images were created and reviewed. COMPARISON: CT CHEST FOR PULMONARY EMBOLUS from 11/10/[address] CHEST/ABD/PEL WO from 06/22/[address] LUMBAR SPINE RECONS from 07/19/2021 FINDINGS: ABDOMEN: Lung Bases: Normal where visualized. Liver: Normal density. No measurable mass. Gallbladder and biliary tract: Cholelithiasis. No biliary ductal dilatation. Pancreas: Normal density, no abnormal calcifications or inflammatory process. There is a stable 1.4 c m cyst associated with the head of the pancreas. Spleen: Normal. There is a parenchymal calcification present. This may represent prior granulomatous disease. Kidneys: Normal size, contour and axis.No radiodense stones or obstructive uropathy. No masses seen. Adrenal glands: No mass is seen. Lymph nodes: Within normal limits. Abdominal Aorta: There has been no change in appearance of the infrarenal abdominal aortic aneurysm w ith the with the aorto bi-iliac intravascular stent. The patient also has of left axillary bi-femora l bypass noted. PELVIS: Bladder:Symmetric distention, no gross wall thickening. Bowel: No obstruction or bowel wall thickening. No evidence of appendicitis. There is diverticulosis seen in the colon. No evidence of acute diverticulitis. Peritoneal cavity: No ascites, collection or mesenteric inflammatory response. No free air. Reproductive organs: Mildly enlarged prostate gland. Bones: Within normal limits. Soft Tissues: Within normal limits. CT lumbar spine recons: There are degenerative changes present throughout the lumbar spine. No acute fractures or subluxations in the lumbar spine there is normal alignment. No spondylolysis or spondy lolisthesis is present. No suspicious lytic or sclerotic lesions are seen. The degenerative changes in the lumbar spine do contribute to causing bilateral L5-S1 neural foraminal stenosis. No signific ant central spinal canal stenosis is present. IMPRESSION: 1. No acute abdominal pelvic process. 2. Stable chronic findings in the abdomen and pelvis as described above. 3. Degenerative changes seen in the lumbar spine. The findings are most marked at L5-S1 where there is bilateral neural foraminal stenosis. 4. Results of this exam have been verbally communicated with provider. RADIATION DOSE DELIVERED: 880.86 mGy.cm Total DLP DATA REPOSITORY: All CT scans at this facility are submitted to the National Radiology Data Registry (NRDR) Dose Index Registry (DIR) with the [employer] (A[employer]). RADIATION OPTIMIZATION: All CT scans at this facility use at least one of these dose optimization te chniques: automated exposure control; mA and/or kV adjustment per patient size (includes targeted exa ms where dose is matched to clinical indication); or iterative reconstruction.
--- NOTE | 2021-07-19 07:23 | ED.GENADUL_ITS ---
Discharge Plan Disposition Patient Disposition: [facility] INPATIENT Condition: Improving Discharge Details Clinical Impression: Back spasm, TANIA (acute kidney injury) Admit Date/Time: 07/19/21 11:42 Admit Provider: Dania Marino Attending Provider: Dania Marino Primary Care Provider: Daniele Chambers ED Provider: Jose Mcgee Discharge Data Discharge Date/Time-TO BE ENTERED AT DEPARTURE: 07/19/21 15:26 Medical Decision Making <Chad Rubin MD - Last Filed: 07/19/21 07:28> This is a 71-year-old male who presents via EMS from his home complaining of back pain. Patient states he was pushing his recliner to move it yesterday when he felt a strain in his lumbar region. It was worsened this morning and he was unable to get out of bed due to spasms. EMS was called and he had some improvement with 2 mg of Ativan. He has not had bowel or bladder incontinence, no motor weakness or numbness of the lower extremity. On exam the patient does have reproducible lumbar pain. Differential diagnose includes sciatica, degenerative disc disease, as well as possible intra- abdominal process as the patient has had previous aortobifem bypass. IV access established, patient given parenteral analgesia, referred for imaging studies. As the patient presented prior to change of shift, will be signed out to Dr. Mcgee. Please see his note regarding details of the remainder of the patient's work-up. HPI <Chad Rubin MD - Last Filed: 07/19/21 07:28> General Mode of arrival: ambulatory . Date/Time Provider Initiated Documentation: 07/19/21 08:21 . Limitations to Documentation: no limitations . Information obtained by: patient . History of Present Illness 71 year old M presents to the emergency department with the chief complaint of Low back pain and spasm, described as moderate, Quality is described as constant, and is localized to the back. Patient started experiencing this hour(s) and it has been intermittent. improves with Rest improves symptom(s), Movement worsens symptoms . Patient notes denies fever/chills, headaches, loss of appetite, syncope and weakness. Patient did receive the following treatments prior to arrival, other (Ativan x2 mg by EMS) Related Data Home Medications Medication Instructions Recorded Confirmed atorvastatin 80 mg tablet (Lipitor) 80 mg PO HS 11/08/15 07/19/21 clopidogrel 75 mg tablet (Plavix) 75 mg PO DAILY 11/08/15 07/19/21 lisinopril 10 mg tablet 10 mg PO DAILY 11/08/15 07/19/21 nitroglycerin 0.4 mg sublingual 0.4 mg SUBLINGUAL DIRECTED 11/08/15 07/19/21 tablet (Nitrostat) acetaminophen 325 mg tablet 650 mg PO Q6H PRN PRN tab 11/11/15 07/19/21 (Tylenol) blood sugar diagnostic (Blood #100 strip 11/01/17 Glucose Test) isosorbide mononitrate 60 mg 120 mg PO DAILY #60 tabcr 11/01/17 07/19/21 tablet,extended release 24 hr metoprolol succinate 100 mg 100 mg PO DAILY 90 Days #90 tab-cap 12/19/17 07/19/21 tablet,extended release 24 hr insulin glargine 100 unit/mL (3 32 units SUB-Q HS 02/13/20 07/19/21 mL) subcutaneous pen (Lantus Solostar U-100 Insulin) liraglutide 0.6 mg/0.1 mL (18 mg/3 1.2 mg SUBCUT DAILY 02/13/20 07/19/21 mL) subcutaneous pen injector (KongZhong 2-Elias) aspirin 325 mg tablet 81 mg PO DAILY 06/05/20 07/19/21 hydroxyzine HCl 25 mg tablet 25 mg PO QHS PRN 06/05/20 07/19/21 omeprazole 20 mg capsule,delayed 20 mg PO BID 06/05/20 07/19/21 release rivaroxaban 20 mg tablet 20 mg PO DAILY 06/05/20 07/19/21 Ketorolac Tromethamine 1 OPHTHALMIC (EYE) QID 07/19/21 cephalexin 500 mg capsule 500 mg PO DAILY 07/19/21 07/19/21 moxifloxacin 0.5 % eye drops 1 drp OPHTHALMIC (EYE) QID 07/19/21 07/19/21 prednisolone acetate 1 % eye 1 drp OPHTHALMIC (EYE) QID 07/19/21 07/19/21 drops,suspension cyclobenzaprine 10 mg tablet 10 mg PO TID PRN #10 tab 07/20/21 Previous Rx's Medication Instructions Recorded acetaminophen 325 mg tablet 650 mg PO Q6H PRN PRN tab 11/11/15 (Tylenol) blood sugar diagnostic (Blood #100 strip 11/01/17 Glucose Test) isosorbide mononitrate 60 mg 120 mg PO DAILY #60 tabcr 11/01/17 tablet,extended release 24 hr metoprolol succinate 100 mg 100 mg PO DAILY 90 Days #90 tab-cap 12/19/17 tablet,extended release 24 hr cyclobenzaprine 10 mg tablet 10 mg PO TID PRN #10 tab 07/20/21 Allergies Allergy/AdvReac Type Severity Reaction Status Date / Time No Known Allergies Allergy Unverified 07/19/21 08:27 General Stated Complaint: Nk/Back Pain NADEEM: 3 Review of Systems <Chad Rubin MD - Last Filed: 07/19/21 07:28> Narrative: 6 systems reviewed and otherwise negative PFSH <Chad Rubin MD - Last Filed: 07/19/21 07:28> All Active Problems Ambulatory dysfunction (Acute) Intractable back pain (Acute) Back spasm (Acute) TANIA (acute kidney injury) (Acute) AAA (abdominal aortic aneurysm) (Chronic) CAD (coronary artery disease) (Chronic) Dry gangrene (Chronic) Acute kidney injury superimposed on chronic kidney disease (Acute) Folic acid deficiency anemia (Chronic) MSSA bacteremia (Acute) In a patient with nonbiologic graft material DVT (deep venous thrombosis) (Acute) Tobacco use disorder (Acute) Patient has not smoked in 5 years Arterial leg ulcer (Acute) Arterial insufficiency with ischemic ulcer (Acute) Infected stasis ulcer of right lower extremity (Acute) Discharge planning issues (Acute) DVT prophylaxis (Acute) MSSA bacteremia (Acute) Diabetes mellitus type 2 in nonobese (Chronic) Kidney disease, chronic, stage IV (GFR 15-29 ml/min) (Acute) Hyperlipidemia (Chronic) PVD (peripheral vascular disease) (Chronic) Vomiting (Acute) Medical History Non-ST elevation (NSTEMI) myocardial infarction STEMI (ST elevation myocardial infarction) Surgical History Atheroscler nonbiologic bypass graft both legs w/intermit claudication Status post left axillary artery to left femoral artery bypass, left to right femoral-femoral bypass, right SFA-posterior tibial bypass Social History Smoking/Tobacco Use Status: Former Tobacco Use Smoking risk assessment performed?: Yes Alcohol Intake: never Drug use: Daily Substance use type: marijuana Do you feel safe at home: Yes Do you feel safe in your relationship?: Yes Exam <Chad Rubin MD - Last Filed: 07/19/21 07:28> Narrative Exam Narrative: GEN: awake, alert, oriented 3. Pleasant, well groomed, interactive. HEAD: Normocephalic, atraumatic ENT: Mucous membranes moist, External ear exam unremarkable EYES: PERRL, EOMI NECK: Full ROM, no YAS, no menigismus CHEST/RESP: Nontender, clear to auscultation bilateral, no wheeze/rhonchi/rales CARDIOVASCULAR: RRR, no murmur, rub graham. 2+ Rad pulse bilateral ABDOMEN: Soft, nontender, no mass. +Bowel sounds Back: Tender right greater than left paraspinous lumbar musculature, no midline step-off or deformity EXT: Full ROM is intact but limited by pain, sensation intact, no edema, no rash Neuro: Grossly normal neurologic exam, conversant, interactive. Psych: Speech fluent, thoughts congruent, affect normal Course <Chad Rubin MD - Last Filed: 07/19/21 07:28> Vital Signs Vital signs: Vital Signs Temperature 36.6 C 07/19/21 07:07 Pulse 75 07/19/21 07:07 Respiratory Rate 16 07/19/21 07:07 Blood Pressure 109/71 07/19/21 07:07 Pulse Oximetry 96 07/19/21 07:07 Temperature 36.6 C 07/19/21 07:07 Temperature Source Skin 07/19/21 07:07 Pulse 75 07/19/21 07:07 Respiratory Rate 16 07/19/21 07:07 Respiratory Effort 07/19/21 07:07 Blood Pressure 109/71 07/19/21 07:07 Blood Pressure Position Supine 07/19/21 07:07 Pulse Oximetry 96 07/19/21 07:07 Oxygen Delivery Method Room Air 07/19/21 07:07 Oxygen Flow Rate 0 07/19/21 07:07 Pain Level 1 07/19/21 07:07 Comment 07/19/21 07:07 Sign Out <Chad Rubin MD - Last Filed: 07/19/21 07:28> Sign Out Data: Sign Out Comment: followup labs, imaging Last updated by Chad Rubin MD at 07/19/21 07:32
[2021-07-19] MEDS: Normal Saline 1,000 ML 150 ML IV (07:36)
[2021-07-19] MEDS: HYDROmorphone 2 MG/ML VIAL 1 MG IVP (07:37)
[2021-07-19 07:54] LABS: Abs Immature Grans 0.06 10^3/uL (0.0-0.06); Absolute Basophil Count 0.07 10^3/uL (0.0-0.2); Absolute Eosinophil Count 0.11 10^3/uL (0.0-0.7); Absolute Lymphocyte Count 1.24 10^3/uL (1.2-3.4); Absolute Monocyte Count 0.72 10^3/uL (0.1-0.8); Absolute Neutrophil Count 5.14 10^3/uL (1.2-6.7); Eosinophils % 1.5; HCT 42.4 % (40.0-50.0); HGB 13.5 g/dL (13.5-17.5); Immature Grans % 0.8; Lymphocytes % 16.9; MCH 29.7 pg (27.0-33.0); MCHC 31.8 % (32.0-36.0); MCV 93.4 fL (80-95); MPV 10.5 fL (8.0-11.0); Monocytes % 9.8; Nucleated RBC 0 %; Platelet Count 204 10^3/uL (130-400); RBC 4.54 10^6/uL (4.36-5.78); RDW 13.3 % (11.8-14.1); RDW-SD 45.3 fL; WBC 7.34 10^3/uL (4.4-10.8)
[2021-07-19 08:09] LABS: ALT 19 U/L (16-63); AST 14 U/L (15-37); Albumin 3.6 g/dL (3.4-5.0); Alkaline Phosphatase 73 U/L (46-116); Anion Gap 9.1 mmol/L (3-11); BUN 46 mg/dL (7-18); Bilirubin, Total 0.6 mg/dL (0.2-1.0); CO2 20.9 mmol/L (21.0-32.0); CREATININE 2.2 mg/dL (0.70-1.30); Calcium 8.6 mg/dL (8.5-10.1); Chloride 109 mmol/L (98-107); Estimated GFR 29.49 (mL/min/1.73m2); Glucose 163 mg/dL (74-106); Magnesium 2.3 mg/dL (1.8-2.4); Potassium 4.7 mmol/L (3.5-5.1); Sodium 139 mmol/L (136-145); Total Protein 7.9 g/dL (6.4-8.2)
[2021-07-19] MEDS: diazePAM 10 MG/2 ML SYR 5 MG IVP (09:05)
[2021-07-19 09:13] LABS: Bilirubin Negative (Negative); Blood Trace-intact (Negative); Clarity Clear (Clear); Glucose Negative (Negative); Ketones Negative (Negative); Leukocyte Esterase Negative (Negative); Nitrite Negative (Negative); Specific Gravity 1.025 (1.005-1.025); Urobilinogen 0.2 EU/dL (Up TO 0.2); pH 5.5 (5-8)
[2021-07-19 09:27] LABS: Bacteria Rare HPF (Negative); C & S Indicated? No; Casts Negative LPF (Negative); Crystals Negative HPF (Negative); Epithelial Cells Rare HPF (Negative); Mucus Trace (Negative); WBC 0-2 HPF (0-5)
--- NOTE | 2021-07-19 11:40 | W.EDPROG ---
Date of service: 07/19/21 Time of Service: 11:44 Medical Decision Making Care signed out by Dr. Rubin, please see his documentation regarding initial ED presentation and course. At time of signout plan was to follow-up on CT of the abdomen pelvis as well as CT of the lumbar spine. Labs reviewed and TANIA noted. GFR 29. I will withhold IV contrast. CT of the abdomen pelvis and Lspine was interpreted by radiology:IMPRESSION: 1. No acute abdominal pelvic process. 2. Stable chronic findings in the abdomen and pelvis as described above. 3. Degenerative changes seen in the lumbar spine.? The findings are most marked at L5-S1 where there is bilateral neural foraminal stenosis. 4. Results of this exam have been verbally communicated with provider. Patient was reexamined and continues to have spasm. He was given Valium 5 mg IV and then reassessed and continues to have severe spasm. He is not able to ambulate. Patient has no saddle anesthesia and rectal tone is normal. I called and spoke with the hospitalist who will admit the patient. Care transitioned at time of admission. Lab Data Lab results reviewed: Yes I reviewed the patient's lab results. Labs: Laboratory Tests Range/Units 07/19/21 07/19/21 07/19/21 07:50 07:50 09:00 WBC (4.4-10.8) 10^3/uL 7.34 RBC (4.36-5.78) 10^6/uL 4.54 Hgb (13.5-17.5) g/dL 13.5 Hct (40.0-50.0) % 42.4 MCV (80-95) fL 93.4 MCH (27.0-33.0) pg 29.7 MCHC (32.0-36.0) % 31.8 L RDW (11.8-14.1) % 13.3 Plt Count (130-400) 10^3/uL 204 MPV (8.0-11.0) fL 10.5 Immature Gran % 0.8 Neutrophils % 70.0 Lymphocytes % 16.9 Monocytes % 9.8 Eosinophils % 1.5 Basophils % 1.0 Nucleated RBC % % 0 Absolute Neutrophils (1.2-6.7) 10^3/uL 5.14 Absolute Lymphocytes (1.2-3.4) 10^3/uL 1.24 Absolute Monocytes (0.1-0.8) 10^3/uL 0.72 Absolute Eosinophils (0.0-0.7) 10^3/uL 0.11 Absolute Basophils (0.0-0.2) 10^3/uL 0.07 Sodium (136-145) mmol/L 139 Potassium (3.5-5.1) mmol/L 4.7 Chloride (98-107) mmol/L 109 H Carbon Dioxide (21.0-32.0) mmol/L 20.9 L Anion Gap (3-11) mmol/L 9.1 BUN (7-18) mg/dL 46 H Creatinine (0.70-1.30) mg/dL 2.2 H Estimated GFR/1.73 m2 (mL/min/1.73m2) 29.49 Glucose (74-106) mg/dL 163 H Calcium (8.5-10.1) mg/dL 8.6 Magnesium (1.8-2.4) mg/dL 2.3 Total Bilirubin (0.2-1.0) mg/dL 0.6 AST (15-37) U/L 14 L ALT (16-63) U/L 19 Alkaline Phosphatase (46-116) U/L 73 Total Protein (6.4-8.2) g/dL 7.9 Albumin (3.4-5.0) g/dL 3.6 Urine Color (Yellow) Yellow Urine Clarity (Clear) Clear Urine pH (5-8) 5.5 Ur Specific [place] (1.005-1.025) 1.025 Urine Protein (Negative) mg/dL Negative Urine Ketones (Negative) mg/dL Negative Urine Blood (Negative) Trace-intact H Urine Nitrite (Negative) Negative Urine Bilirubin (Negative) Negative Urine Urobilinogen (Up TO 0.2) EU/dL 0.2 Ur Leukocyte Esterase (Negative) Negative Urine RBC (0-2) HPF 3-5 H Urine WBC (0-5) HPF 0-2 Ur Epithelial Cells (Negative) HPF Rare Urine Crystals (Negative) HPF Negative Urine Bacteria (Negative) HPF Rare Urine Casts (Negative) LPF Negative Urine Mucus (Negative) Trace Ur Culture Indicated? No Urine Glucose (Negative) mg/dL Negative Sign Out Sign Out Data: Sign Out Comment: followup labs, imaging Last updated by Chad Rubin MD at 07/19/21 07:32 Discharge Plan Disposition Patient Disposition: [facility] INPATIENT Condition: Serious Discharge Details Clinical Impression: Back spasm, TANIA (acute kidney injury) Primary Care Provider: Daniele Chambers ED Provider: Jose Mcgee Home Meds and New Rx's Prescriptions: No Action metoprolol succinate 100 MG tablet extended release 24 hr 100 mg PO DAILY 90 Days Qty: 90 4RF atorvastatin [Lipitor] 80 MG tablet 80 mg PO HS 0RF clopidogrel [Plavix] 75 MG tablet 75 mg PO DAILY 0RF lisinopril 10 MG tablet 10 mg PO DAILY 0RF nitroglycerin [Nitrostat] 0.4 MG tablet, sublingual 0.4 mg Sublingual DIRECTED 0RF acetaminophen [Tylenol] 325 MG tablet 650 mg PO Q6H PRN PRN0RF isosorbide mononitrate 60 MG tablet extended release 24 hr 120 mg PO DAILY Qty: 60 3RF (DME) blood sugar diagnostic [Blood Glucose Test] 1 EACH strip 1 ea Sub-Q AC Qty: 100 3RF Rx Instructions: One Touch Verio test strips aspirin 325 mg Tablet 81 mg PO DAILY 0RF omeprazole 20 mg Capsule,Delayed Release(Dr/Ec) 20 mg PO BID 0RF hydroxyzine HCl 25 mg Tablet 25 mg PO QHS PRN0RF rivaroxaban 20 mg Tablet 20 mg PO DAILY 0RF Lantus Solostar U-100 Insulin 300 UNITS/3 ML insulin pen 32 units Sub-Q HS 0RF Victoza 2-Elias 0.6 mg/0.1 mL (18 mg/3 mL) Pen Injector 1.2 mg SUBCUT DAILY 0RF cephalexin 500 mg capsule 500 mg PO DAILY 0RF Label Comments: TAKE 1 CAPSULE BY MOUTH 4 TIMES A DAY FOR INFECTION
--- NOTE | 2021-07-19 11:49 | HPE_ITS ---
Date of service: 07/19/21 Time of Service: 11:49 Assessment and Plan Assessment and plan (1) Intractable back pain: Status: Acute Assessment and plan: Due to a muscle spasm. I suspect this is associated with L4-L5 disc herniation. Start prednisone, treat with muscle relaxants, prn IV dilaudid. Avoid NSAIDs as the patient is on asa, plavix, and xarelto (we will verify this). Heat. Lidocaine patch. PT consulted. (2) Acute kidney injury superimposed on chronic kidney disease: Status: Acute Assessment and plan: Patient appears clinically dry. IVF overnight (cautious). (3) CAD (coronary artery disease): Status: Chronic Assessment and plan: We will clarify if the patient is truly supposed to be on asa, plavix and xarelto. At this point, will continue all home medications. (4) Ambulatory dysfunction: Status: Acute Assessment and plan: PT consulted. Due to above (5) Diabetes mellitus type 2 in nonobese: Status: Chronic Assessment and plan: Continue home regimen; anticipate steroid induced hyperglycemia (6) DVT prophylaxis: Status: Acute Assessment and plan: On xarelto (H/o PAD) (7) Discharge planning issues: Status: Acute Assessment and plan: Full code History of Present Illness History of Present Illness Chief Complaint: intractable back pain Narrative: Mr Moran is a 71 year old male with PMHx of CAD, AAA, IDDM2, CKD IV, PAD s/p RLE bypass, MSSA bacteremia in the past, who presented to [facility] ED with intractable lower back pain which started yesterday after moving a couch. The patient felt a pop in his back and it brought him to his knees. He did not fall but ended up in the chair with a friend helping him last night. This morning, the pain was still so severe that he came to the hospital. He did not have breakfast this morning but did have dinner last night. He has had too much pain to move around at home and has not ambulated since getting to the floor. He denies difficulty with urination, bladder or bowel incontinence, saddle anesthesia. He endorses chronic numbness and tingling in his legs. Diagnostic workup in the ED is c/w a muscle spasm which did not respond to IV dilaudid/valium. Per ED provider, no saddle anesthesia, and the patient had a preserved rectal tone. Admission to the hospitalist service was requested. He does feel better at the time of my exam. Review of Systems All systems reviewed & are unremarkable except as noted in HPI and below PFSH All Active Problems (Updated 07/19/21 @ 19:18 by Dania Marino MD) Ambulatory dysfunction (Acute) Intractable back pain (Acute) Back spasm (Acute) TANIA (acute kidney injury) (Acute) AAA (abdominal aortic aneurysm) (Chronic) CAD (coronary artery disease) (Chronic) Dry gangrene (Chronic) Acute kidney injury superimposed on chronic kidney disease (Acute) Folic acid deficiency anemia (Chronic) MSSA bacteremia (Acute) In a patient with nonbiologic graft material DVT (deep venous thrombosis) (Acute) Tobacco use disorder (Acute) Patient has not smoked in 5 years Arterial leg ulcer (Acute) Arterial insufficiency with ischemic ulcer (Acute) Infected stasis ulcer of right lower extremity (Acute) Discharge planning issues (Acute) DVT prophylaxis (Acute) MSSA bacteremia (Acute) Diabetes mellitus type 2 in nonobese (Chronic) Kidney disease, chronic, stage IV (GFR 15-29 ml/min) (Acute) Hyperlipidemia (Chronic) PVD (peripheral vascular disease) (Chronic) Vomiting (Acute) Medical History Non-ST elevation (NSTEMI) myocardial infarction STEMI (ST elevation myocardial infarction) Surgical History Atheroscler nonbiologic bypass graft both legs w/intermit claudication Status post left axillary artery to left femoral artery bypass, left to right femoral-femoral bypass, right SFA-posterior tibial bypass Social History Smoking/Tobacco Use Status: Former Tobacco Use Smoking risk assessment performed?: Yes Alcohol Intake: never Drug use: Daily Substance use type: marijuana Do you feel safe at home: Yes Do you feel safe in your relationship?: Yes Meds Allergies and Home Medications Allergies Allergy/AdvReac Type Severity Reaction Status Date / Time No Known Allergies Allergy Unverified 07/19/21 08:27 Home Medications Medication Instructions Recorded Confirmed Type atorvastatin 80 mg tablet (Lipitor) 80 mg PO HS 11/08/15 07/19/21 History clopidogrel 75 mg tablet (Plavix) 75 mg PO DAILY 11/08/15 07/19/21 History lisinopril 10 mg tablet 10 mg PO DAILY 11/08/15 07/19/21 History nitroglycerin 0.4 mg sublingual 0.4 mg SUBLINGUAL DIRECTED 11/08/15 07/19/21 History tablet (Nitrostat) acetaminophen 325 mg tablet 650 mg PO Q6H PRN PRN tab 11/11/15 07/19/21 Rx (Tylenol) blood sugar diagnostic (Blood #100 strip 11/01/17 Rx Glucose Test) isosorbide mononitrate 60 mg 120 mg PO DAILY #60 tabcr 11/01/17 07/19/21 Rx tablet,extended release 24 hr metoprolol succinate 100 mg 100 mg PO DAILY 90 Days #90 tab-cap 12/19/17 07/19/21 Rx tablet,extended release 24 hr insulin glargine 100 unit/mL (3 32 units SUB-Q HS 02/13/20 07/19/21 History mL) subcutaneous pen (Lantus Solostar U-100 Insulin) liraglutide 0.6 mg/0.1 mL (18 mg/3 1.2 mg SUBCUT DAILY 02/13/20 07/19/21 History mL) subcutaneous pen injector (AudioMicroza 2-Elias) aspirin 325 mg tablet 81 mg PO DAILY 06/05/20 07/19/21 History hydroxyzine HCl 25 mg tablet 25 mg PO QHS PRN 06/05/20 07/19/21 History omeprazole 20 mg capsule,delayed 20 mg PO BID 06/05/20 07/19/21 History release rivaroxaban 20 mg tablet 20 mg PO DAILY 06/05/20 07/19/21 History Ketorolac Tromethamine 1 OPHTHALMIC (EYE) QID 07/19/21 History cephalexin 500 mg capsule 500 mg PO DAILY 07/19/21 07/19/21 History moxifloxacin 0.5 % eye drops 1 drp OPHTHALMIC (EYE) QID 07/19/21 07/19/21 History prednisolone acetate 1 % eye 1 drp OPHTHALMIC (EYE) QID 07/19/21 07/19/21 History drops,suspension Exam Narrative Exam Narrative: General: Very pleasant elderly male, A&Ox3, appears relatively comfortable but hesitant to move Neurological: A&Ox3, no focal deficits, able to move BLEs, though guarding due to back pain Psychiatric: Appropriate speech pattern and content Skin: Old/healing excoriations on scalp; no visible rashes/bruises HEENT: Atraumatic, normocephalic, EOMI, dry MM, clear oropharynx, no submandibular or cervical lymphadenopathy, no goiter or JVD Cardiovascular: RRR, no m/r/g Lungs: CTAB (anteriorly) Gastrointestinal: soft, nontender, nondistended Genitourinary: deferred Extremities: no edema BLEs, trace pedal pulses B, able to move BLEs but guarding due to back pain, preserved strength in BLEs Results Imaging Additional studies: Lumbar spine CT/Abdomen/pelvis CT: 1. No acute abdominal pelvic process. 2. Stable chronic findings in the abdomen and pelvis as described above. 3. Degenerative changes seen in the lumbar spine.? The findings are most marked at L5-S1 where there is bilateral neural foraminal stenosis. 4. Results of this exam have been verbally communicated with provider. MRI lumbar spine: 1. Examination limited due to artifact from the patient's aortic stent. 2. Multilevel degenerative changes in the lumbar spine.? The findings result in mild central spinal canal stenosis at L4-L5 and bilateral neural foraminal stenosis at L5-S1. Labs Result diagrams: 07/19/21 07:50 07/19/21 07:50 Labs: Laboratory Results - last 24 hr 07/19/21 07/19/21 07/19/21 07:50 07:50 09:00 WBC 7.34 RBC 4.54 Hgb 13.5 Hct 42.4 MCV 93.4 MCH 29.7 MCHC 31.8 L RDW 13.3 Plt Count 204 MPV 10.5 Immature Gran % 0.8 Neutrophils % 70.0 Lymphocytes % 16.9 Monocytes % 9.8 Eosinophils % 1.5 Basophils % 1.0 Nucleated RBC % 0 Absolute Neutrophils 5.14 Absolute Lymphocytes 1.24 Absolute Monocytes 0.72 Absolute Eosinophils 0.11 Absolute Basophils 0.07 Sodium 139 Potassium 4.7 Chloride 109 H Carbon Dioxide 20.9 L Anion Gap 9.1 BUN 46 H Creatinine 2.2 H Estimated GFR/1.73 m2 29.49 Glucose 163 H Calcium 8.6 Magnesium 2.3 Total Bilirubin 0.6 AST 14 L ALT 19 Alkaline Phosphatase 73 Total Protein 7.9 Albumin 3.6 Urine Color Yellow Urine Clarity Clear Urine pH 5.5 Ur Specific [place] 1.025 Urine Protein Negative Urine Ketones Negative Urine Blood Trace-intact H Urine Nitrite Negative Urine Bilirubin Negative Urine Urobilinogen 0.2 Ur Leukocyte Esterase Negative Urine RBC 3-5 H Urine WBC 0-2 Ur Epithelial Cells Rare Urine Crystals Negative Urine Bacteria Rare Urine Casts Negative Urine Mucus Trace Ur Culture Indicated? No Urine Glucose Negative Last Vital Signs Temp 36.5 C 07/19/21 08:49 Pulse 56 L 07/19/21 10:46 Resp 16 07/19/21 08:49 BP 117/73 07/19/21 10:46 Pulse Ox 93 07/19/21 10:50
[2021-07-19 11:54] LABS: Source Nasal/Nares
[2021-07-19 12:33] LABS: COVID-19 PCR Negative (Negative)
[2021-07-19 12:53] LABS: Lab Add On Test DONE
[2021-07-19 13:07] LABS: C-Reactive Protein 0.07 mg/dL (0.0-0.3)
[2021-07-19 13:41] LABS: Procalcitonin < 0.1 ng/mL
[2021-07-19] MEDS: Cyclobenzaprine 10 MG TAB PO ×2 (14:25→21:23)
[2021-07-19] MEDS: Acetaminophen 500 MG TAB 1000 MG PO ×2 (14:26→21:23)
[2021-07-19] MEDS: Lidocaine 5% Patch 1 PATCH TP (14:27)
[2021-07-19] MEDS: Insulin Aspart 300 UNITS/3 ML PEN SC (17:10)
[2021-07-19] MEDS: predniSONE 20 MG TAB 60 MG PO (21:22)
[2021-07-19] MEDS: Atorvastatin 40 MG TAB 80 MG PO (21:25)
[2021-07-19] MEDS: Omeprazole 20 MG CAPCR PO (21:25)
[2021-07-19] MEDS: Insulin Glargine 300 UNITS/3 ML PEN 32 UNITS SC (21:37)
[2021-07-19] MEDS: Normal Saline 1,000 ML 75 ML IV (21:58)
[2021-07-20] MEDS: Acetaminophen 500 MG TAB 1000 MG PO (05:27)
[2021-07-20 07:21] LABS: Anion Gap 11.5 mmol/L (3-11); BUN 34 mg/dL (7-18); CO2 18.5 mmol/L (21.0-32.0); CREATININE 1.8 mg/dL (0.70-1.30); Calcium 8.4 mg/dL (8.5-10.1); Chloride 109 mmol/L (98-107); Estimated GFR 37.17 (mL/min/1.73m2); Glucose 187 mg/dL (74-106); Potassium 4.6 mmol/L (3.5-5.1); Sodium 139 mmol/L (136-145)
[2021-07-20 07:33] VITALS: BP 154/95; PULSE 62; RESP 12; TEMP 36.4; O2SAT 97
[2021-07-20] MEDS: Insulin Aspart 300 UNITS/3 ML PEN SC ×2 (08:27→11:57)
[2021-07-20] MEDS: predniSONE 20 MG TAB 60 MG PO (08:45)
[2021-07-20] MEDS: Cyclobenzaprine 10 MG TAB PO (08:45)
[2021-07-20] MEDS: Metoprolol CR 100 MG TABCR PO (08:45)
[2021-07-20] MEDS: Lisinopril 10 MG TAB PO (08:46)
[2021-07-20] MEDS: Isosorbide Mononitrate 60 MG TABCR 120 MG PO (08:46)
[2021-07-20] MEDS: Omeprazole 20 MG CAPCR PO (08:47)
[2021-07-20] MEDS: Clopidogrel 75 MG TAB PO (08:47)
[2021-07-20] MEDS: Rivaroxaban 10 MG TABLET 20 MG PO (08:47)
--- NOTE | 2021-07-20 09:47 | IN_ITS ---
Date of service: 07/20/21 Time of Service: 09:47 PT Notes Visit Reasons: Intractable Back Pain Physical Therapy Inpatient Initial Evaluation Date: 07/20/2021 Referring Doctor: Dania Guzman MD PT Orders: PT CONSULT: Limited Ability Precautions: Fall. Standard. Activity as tolerated. Patient Profile/Admitting Diagnosis: Patient ia a 71-year-old male patient who presented to the ED on 07/19/2021 due to low back pain after moving couch. Patient is diagnosed with intractable back pain due to L4-L5 disk hernaition, acute kidney injury, ambulatory dys I and Type II DM. PMHX: All Active Problems?(Updated 07/19/21 @ 19:18 by Dania Marino MD) Ambulatory dysfunction (Acute) Intractable back pain (Acute) Back spasm (Acute) TANIA (acute kidney injury) (Acute) AAA (abdominal aortic aneurysm) (Chronic) CAD (coronary artery disease) (Chronic) Dry gangrene (Chronic) Acute kidney injury superimposed on chronic kidney disease (Acute) Folic acid deficiency anemia (Chronic) MSSA bacteremia (Acute) In a patient with nonbiologic graft materialDVT (deep venous thrombosis) (Acute) Tobacco use disorder (Acute) Patient has not smoked in 5 yearsArterial leg ulcer (Acute) Arterial insufficiency with ischemic ulcer (Acute) Infected stasis ulcer of right lower extremity (Acute) Discharge planning issues (Acute) DVT prophylaxis (Acute) MSSA bacteremia (Acute) Diabetes mellitus type 2 in nonobese (Chronic) Kidney disease, chronic, stage IV (GFR 15-29 ml/min) (Acute) Hyperlipidemia (Chronic) PVD (peripheral vascular disease) (Chronic) Vomiting (Acute) Medical History? Non-ST elevation (NSTEMI) myocardial infarction STEMI (ST elevation myocardial infarction) Surgical History? Atheroscler nonbiologic bypass graft both legs w/intermit claudication Status post left axillary artery to left femoral artery bypass, left to right femoral-femoral bypass, right SFA-posterior tibial bypass Social History/Home Situation: Lives alone in a private home with 17 steps and a rail on the R side and a wall on the L for support. Equipment Owned/DME: [facility] Subjective: Agreeable to PT consult. States that he will need [facility] if [facility] PT is recommended. Reports significantly improved pain level this orning compared to yesterday. Objective: General Observation: Supine in bed. Still hesitant about moving about in bed. Mental Status: Alert and oriented as to person, place, time, and purpose. Able to pay attention, focus, and respond appropriately. Pain: 2/10 in low back area Vital Signs: WNL as closely monitored by nursing staff ROM: Right Upper Extremity: Shoulder Flexion WFL. Shoulder abduction WFL. Elbow flexion WFL. Wrist flexion WFL. Functional opening and closing of hand WFL. Left Upper Extremity: Shoulder Flexion WFL. Shoulder abduction WFL. Elbow flexion WFL. Wrist flexion WFL. Functional opening and closing of hand WFL. Right Lower Extremity: Hip flexion WFL. Hip abduction WFL. Knee flexion WFL. Ankle dorsiflexion WFL. Ankle plantarflexion WFL. Left Lower Extremity: Hip flexion WFL. Hip abduction WFL. Knee flexion WFL. Ankle dorsiflexion WFL. Ankle plantarflexion WFL. Strength: Right Upper Extremity: Shoulder flexors 4/5. Shoulder abductors 4/5. Elbow flexors 5/5. Elbow extensors 5/5. 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 Left Upper Extremity: Shoulder flexors 4/5. Shoulder abductors 4/5. Elbow flexors 5/5. Elbow extensors 5/5. 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 Right Lower Extremity: Hip flexors 4-/5. Hip abductors 4-/5. Knee flexors 4-/5. Knee extensors 4-/5. Ankle dorsiflexors 4-/5. Ankle plantarflexors 4-/5. Left Lower Extremity: Hip flexors 4-/5. Hip abductors 4-/5. Knee flexors 4-/5. Knee extensors 4-/5. Ankle dorsiflexors 4-/5. Ankle plantarflexors 4-/5. Bed Mobility/Transfers: Rolling with independent Supine to sit with independent Sit to supine with independent Sit to stand with independent Stand to sit with independent Bed to reclining chair with independent Gait: Instructed patient with level surface ambulation of 200 feet requiring stand by assist. With FWW, patient was able to negotiate 300 feet with modified independence. 2/10 pain in low back. Stairs: Up and down 12 x 4inch steps and 8 x 6inch steps while holding onto B rails eith supervision assist with no increase in low back pain. Paulo's Back flexion exercises: Performed posterior pelvic tilt x 10, unilateral [id number] x 10, and bilateral [id number]-[id number] x 10, straight leg raise x 10 up to 45 degrees only due to pain. MYOTOMES: L4 intact but with report of pain at 2/10 with contraction L5 intact but with report of pain at 2/10 with contraction S1 intact but with report of pain at 2/10 with contraction DERMATOME: L4 intact L5 intact S1 intact Balance: Static Sitting: Normal Dynamic Sitting: Normal Static Standing: Fair Dynamic Standing: Fair Special Tests: Mobility Limitations Standardized Measure [facility] 6 clicks Basic Mobility Inpatient Short Form: Raw Score: 24 CMS Score: 0% deficit Informed Consent/Education: Patient was instructed in purpose of PT consult and plan of care. Agreeable to proceed with established PT POC to achieve personal goals. Assessment: Pain is significantly reduced. Patient is able to perform all exercises with minimal limitation due to persistent pain. Able to independently walk on level surfaces with FWW., Patient presents with clinical signs and symptoms consistent with current/admitting diagnoses that have resulted to mobility limitations, gait instability, generalized weakness, and overall ADL decline as demonstrated by the following impairment level findings: 1. Decreased strength to B LE major muscle groups 2. Impaired standing balance 3. Impaired activity tolerance 4. Limitation of joint range of motion in full hip flexion in supine due to pain 5. Pain in low back at 2/10 Impairments are contributing to the following functional limitations: 1. Difficulty with ambulation without assistive device 2. Increased completion time for mobility ADL performance 3. Increased risk for falls 4. Difficulty with managing steps alone safely Patient is assessed as a [id number] low complexity based on the following: History: 71-year-old male0 with past medical history as indicated above Examination: Demonstrable impairment in strength, balance, and mobility level with underlying impairments and functional limitations as exhibited above as well as deficit score of 0% utilizing the [facility] Mobility Inpatient Short Form Presentation: Evolving Decision Makin low complexity Goals: N/A. PT evaluation only. Plan of Care/Treatment Plan: N/A. PT evaluation only. DISCHARGE RECOMMENDATIONS: [] Home with no services [] [] Home with services [specify] [X] Home with outpatient PT. Will benefit from outpatient PT services with in order to continue back rehabilitation and mobility ADL progression. [] SNF for continued rehabilitation [] [] Intermediate Care [] [] SNF versus LTC based on ability to participate and progress [] TREATMENT CODE/TIME: 52313 x 23 minutes beginning at 9:47 AM. Thank you for the opportunity to participate in the care of this patient. Amanda Sheldon PT, DPT, CLT [facility] [place], [place]
[2021-07-20 11:14] VITALS: BP 143/80; PULSE 98; RESP 18; TEMP 36.8; O2SAT 96
--- NOTE | 2021-07-20 12:05 | DSE_ITS ---
Date of service: 07/20/21 Time of Service: 12:05 DS: Diagnosis Discharge Diagnosis (1) Intractable back pain: Status: Acute Asessment and Plan: Patient developed sudden onset of intractable back pain associated with a strained event. He began to feel better with treatments given in the emergency room. An MRI showed some mild central canal stenosis L4-L5, no herniation of the disc. He felt considerably better though still moves somewhat tenuously. He received a pulse dose of steroids as well as muscle relaxants and a lidocaine patch. This morning he is feeling quite a bit better. Physical therapy saw him and cleared him for discharge. (2) Acute kidney injury superimposed on chronic kidney disease: Status: Acute Asessment and Plan: Creatinine at the time of discharge 1.8 (3) CAD (coronary artery disease): Status: Chronic Asessment and Plan: Patient has a history of coronary disease and peripheral vascular disease. He is on triple anticoagulant therapy. There is concern about the risk of potential bleeding. His medication regimen was not altered at this time. (4) Ambulatory dysfunction: Status: Acute Asessment and Plan: Cleared by physical therapy. (5) Diabetes mellitus type 2 in nonobese: Status: Chronic Discharge Plan Disposition Patient Disposition: HOME Condition: Improving Discharge Details Reason For Visit: Intractable Back Pain Admit Date/Time: 07/19/21 11:42 Admit Provider: Dania Marino Attending Provider: Dania Marino [facility] Course: 71-year-old man with a history of severe peripheral vascular disease, status post revascularization complicated by infection. He is on chronic antibiotics as well as triple coagulation. He presents with acute intractable back pain after moving some furniture in his home. He was admitted to observation status overnight. Treatments in the emergency room include pulse steroids lidocaine patch and muscle relaxants. He had an MRI that showed some mild central canal stenosis L4-L5. He did well overnight and this morning feels quite a bit better. Physical therapy saw him and felt he was adequate for discharge. He is discharged with a small supply of muscle relaxants. Home Meds and New Rx's Prescriptions: New cyclobenzaprine 10 mg Tablet 10 mg PO TID PRN (Reason: muscle spasm) Qty: 10 0RF Continued metoprolol succinate 100 MG tablet extended release 24 hr 100 mg PO DAILY 90 Days Qty: 90 4RF atorvastatin [Lipitor] 80 MG tablet 80 mg PO HS 0RF clopidogrel [Plavix] 75 MG tablet 75 mg PO DAILY 0RF lisinopril 10 MG tablet 10 mg PO DAILY 0RF nitroglycerin [Nitrostat] 0.4 MG tablet, sublingual 0.4 mg Sublingual DIRECTED 0RF acetaminophen [Tylenol] 325 MG tablet 650 mg PO Q6H PRN PRN0RF isosorbide mononitrate 60 MG tablet extended release 24 hr 120 mg PO DAILY Qty: 60 3RF (DME) blood sugar diagnostic [Blood Glucose Test] 1 EACH strip 1 ea Sub-Q AC Qty: 100 3RF Rx Instructions: One Touch Verio test strips aspirin 325 mg Tablet 81 mg PO DAILY 0RF omeprazole 20 mg Capsule,Delayed Release(Dr/Ec) 20 mg PO BID 0RF hydroxyzine HCl 25 mg Tablet 25 mg PO QHS PRN0RF rivaroxaban 20 mg Tablet 20 mg PO DAILY 0RF Lantus Solostar U-100 Insulin 300 UNITS/3 ML insulin pen 32 units Sub-Q HS 0RF Victoza 2-Elias 0.6 mg/0.1 mL (18 mg/3 mL) Pen Injector 1.2 mg SUBCUT DAILY 0RF cephalexin 500 mg capsule 500 mg PO DAILY 0RF Label Comments: TAKE 1 CAPSULE BY MOUTH 4 TIMES A DAY FOR INFECTION prednisolone acetate 1 % Drops,Suspension 1 drp ophthalmic (eye) QID 0RF Rx Instructions: 1 DROP EACH EYE UNTIL GONE. moxifloxacin 0.5 % Drops 1 drp ophthalmic (eye) QID 0RF Rx Instructions: both eyes until gone. Ketorolac Tromethamine 1 ophthalmic (eye) QID 0RF Rx Instructions: 1 drop each eye until gone. Discharge Instructions Instructions: Acute Low Back Pain (GEN) Stand Alone Forms: Nursing Discharge Form Referrals: Daniele Chambers [Primary Care Provider] - 07/27/21 11:30 am Activity:: Activity as Tolerated Equipment/Supplies:: No Equipment Needed Diet:: Carb Counting Discharge Orders Discharge Orders: Discharge Order (Routine); Ordered 07/20/21 Ordered By: Daniele Oglesby DS: Summary Time Spent with Patient providing and/or coordinating discharge services: Greater than 30 minutes Status at Discharge Functional status at discharge: independent ambulation Overall status at discharge: patient is back to baseline Mental Status: mental status grossly normal Speech and Movement: speech and movement normal Mood: congruent mood Affect: normal affect Exam Narrative Exam Narrative: Exam on the day of discharge he was pleasant and in no apparent distress. I had him sit up and swing around to the side of the bed which she did in a guarded fashion but did not appear to have any significant pain. He is moving his upper and lower extremities without any apparent weakness or decrement of function. He was walked with physical therapy today and was demonstrated to be okay for discharge. The wounds on both legs are all well-healed and showed no signs of erythema or infection. He does have several small circular crust formation in his right lower posterior hip and somewhat of a cluster but there is no associat ed pain with it. He was unaware of it. It did not seem consistent with zoster. Psych Mental Status: mental status grossly normal Speech and Movement: speech and movement normal Mood: congruent mood Affect: normal affect DS: Data Vitals/I&O Vitals and I&O: Vital Signs Temperature 36.8 C 07/20/21 11:14 Temperature Source Tympanic 07/20/21 11:14 Pulse 98 H 07/20/21 11:14 Pulse Rhythm Regular 07/20/21 08:00 Respiratory Rate 18 07/20/21 11:14 Respiratory Effort Non-Labored 07/20/21 08:00 Respiratory Depth Normal 07/20/21 08:00 Respiratory Pattern Normal 07/20/21 08:00 Blood Pressure 143/80 H 07/20/21 11:14 Blood Pressure Mean 84 07/19/21 10:46 Blood Pressure Position Supine 07/19/21 07:07 Pulse Oximetry 96 07/20/21 11:14 Oxygen Delivery Method Room Air 07/20/21 11:14 Oxygen Flow Rate 0 07/20/21 11:14 Pain Level 0 07/20/21 11:14 Comment 07/19/21 19:42 Intake & Output 07/19/21 07/20/21 07/20/21 23:59 11:59 23:59 Intake Total 1979 680 / 680 Output Total 775 / 1075 600 / 600 Balance 1205 / 905 80 / 80 Weight 91.1 kg Intake: IV 1000 / 1000 Oral 980 / 980 680 / 680 Output: Urine 775 / 1075 600 / 600 Other: Urine Color Straw Yellow Urine Appearance Clear Clear Urine Odor Normal None Voiding Methods Urinal Urinal Data Completed and Pending Completed studies during hospitalization [Text1]: MRI of the lumbar spine showing mild central canal stenosis L4-L5 Labs on day of discharge: Labs from last 24 hours 07/20/21 07/19/21 07/19/21 06:17 11:45 07:50 Sodium 139 Potassium 4.6 Chloride 109 H Carbon Dioxide 18.5 L Anion Gap 11.5 H BUN 34 H D Creatinine 1.8 H Estimated GFR/1.73 m2 37.17 Glucose 187 H Calcium 8.4 L C-Reactive Protein Procalcitonin < 0.1 SARS-CoV-2 (PCR) Negative Add-On Test Request 07/19/21 07/19/21 07:50 07:50 Sodium Potassium Chloride Carbon Dioxide Anion Gap BUN Creatinine Estimated GFR/1.73 m2 Glucose Calcium C-Reactive Protein 0.07 Procalcitonin SARS-CoV-2 (PCR) Add-On Test Request DONE PFSH All Active Problems Ambulatory dysfunction (Acute) Intractable back pain (Acute) Back spasm (Acute) TANIA (acute kidney injury) (Acute) AAA (abdominal aortic aneurysm) (Chronic) CAD (coronary artery disease) (Chronic) Dry gangrene (Chronic) Acute kidney injury superimposed on chronic kidney disease (Acute) Folic acid deficiency anemia (Chronic) MSSA bacteremia (Acute) In a patient with nonbiologic graft material DVT (deep venous thrombosis) (Acute) Tobacco use disorder (Acute) Patient has not smoked in 5 years Arterial leg ulcer (Acute) Arterial insufficiency with ischemic ulcer (Acute) Infected stasis ulcer of right lower extremity (Acute) Discharge planning issues (Acute) DVT prophylaxis (Acute) MSSA bacteremia (Acute) Diabetes mellitus type 2 in nonobese (Chronic) Kidney disease, chronic, stage IV (GFR 15-29 ml/min) (Acute) Hyperlipidemia (Chronic) PVD (peripheral vascular disease) (Chronic) Vomiting (Acute) Medical History Non-ST elevation (NSTEMI) myocardial infarction STEMI (ST elevation myocardial infarction) Surgical History Atheroscler nonbiologic bypass graft both legs w/intermit claudication Status post left axillary artery to left femoral artery bypass, left to right femoral-femoral bypass, right SFA-posterior tibial bypass Social History Smoking/Tobacco Use Status: Former Tobacco Use Smoking risk assessment performed?: Yes Alcohol Intake: never Drug use: Daily Substance use type: marijuana Do you feel safe at home: Yes Do you feel safe in your relationship?: Yes
--- NOTE | 2021-07-20 12:06 | W.INDIABCONS ---
Date of service: 07/20/21 Time of Service: 12:06 Diabetes Inpatient Consult Reason for Visit: dm DESCRIPTION/ASSESSMENT: 71 year old male admitted with ambulatory dysfunction with hx of DM2, CAD, CKD. BMI wnl and stable. Home DM meds: victoza, 32 u lantus q HS. Blood sugars well controlled in house. No recent A1C. Following diabetic diet with excellent intake. Meeting 100% nutrient and fluid needs. Recommend A1C to better determine glycemic management with home Dm meds. No other intervention needed at this time. Will continue to follow and support. Time Spent in Nutritional Counseling and Treatment: 0
== END 2021-07-20 14:12 | disposition home or self-care (01) | DRG 552 ==
LOC: ER 11:44 → MS 14:52
PROVIDERS: Emergency Medicine; Admitting Provider Internal Medicine; Emergency Provider Student in an Organized Health Care Education/Training Program; PCP Internal Medicine; Visit Provider Internal Medicine
DX: M48.061 Spinal stenosis, lumbar region without neurogenic claudication (principal); N17.9 Acute kidney failure, unspecified; N18.4 Chronic kidney disease, stage 4 (severe); I25.10 Atherosclerotic heart disease of native coronary artery without angina pectoris; R26.2 Difficulty in walking, not elsewhere classified; E11.22 Type 2 diabetes mellitus with diabetic chronic kidney disease; M62.830 Muscle spasm of back; I73.9 Peripheral vascular disease, unspecified; Z79.01 Long term (current) use of anticoagulants; I71.4 Abdominal aortic aneurysm, without rupture; D52.9 Folate deficiency anemia, unspecified; E78.5 Hyperlipidemia, unspecified; Z87.891 Personal history of nicotine dependence; Z79.4 Long term (current) use of insulin
CPT/HCPCS: 36415; 80048; 80053; 84145; 87635; 94618; 96361; 96374; 96375; 97161; 99285; J3490; 72148; 74176; 81003; 81015; 83735; 85025; 86140; 94640; 99223; 99238; J3360; J7512

== ENCOUNTER 2022-06-14 01:25 | Emergency (ER) | payer OTHER, SELFPAY ==
[2022-06-14] VITALS (66 sets, daily range): BP systolic 89–122; BP diastolic 45–93; PULSE 59–211; RESP 7–26; TEMP 36.6; O2SAT 95
--- NOTE | 2022-06-14 01:15 | RT.EKG_ITS ---
APPROVED REPORT Exam: Resting ECG Reason for Exam: chest pain Patient Location: E HR:167 bpm ECG Measurements Heart Rate 167 AXIS RI [id number] P [id number] QRSd 90 QRS 48 QT 278 T -35 QTc 463 Conclusion Atrial fibrillation with rapid V-rate...A-rate 322 Inferior infarct, age indeterminate...Q>35mS, T neg, II III aVF Afib. Q waves/T wave inversion inferior leads. No STEMI. I have reviewed and interpreted ECG and agree with software generated interpretation.
[2022-06-14 01:45] LABS: Abs Immature Grans 0.06 10^3/uL (0.0-0.06); Absolute Basophil Count 0.08 10^3/uL (0.0-0.2); Absolute Lymphocyte Count 2.38 10^3/uL (1.2-3.4); Absolute Monocyte Count 1.15 10^3/uL (0.1-0.8); Basophils % 0.7; Eosinophils % 1.8; HCT 44.4 % (40.0-50.0); HGB 14.6 g/dL (13.5-17.5); Immature Grans % 0.5; Lymphocytes % 21.6; MCH 30.3 pg (27.0-33.0); MCHC 32.9 % (32.0-36.0); MCV 92 fL (80-95); Monocytes % 10.4; Platelet Count 236 10^3/uL (130-400); RBC 4.82 10^6/uL (4.36-5.78); RDW 12.7 % (11.8-14.1); WBC 11.04 10^3/uL (4.4-10.8)
[2022-06-14 01:47] LABS: Absolute Neutrophil Count 7.18 10^3/uL (1.2-6.7)
--- NOTE | 2022-06-14 01:51 | ED.GENADUL_ITS ---
Discharge Plan Disposition Patient Disposition: [facility] Discharge Details Chief Complaint: Chest Pain Clinical Impression: New onset atrial fibrillation, Hyperglycemia, TANIA (acute kidney injury), Metabolic acidosis, increased anion gap Primary Care Provider: Daniele Chambers ED Provider: Noa Herron Home Meds and New Rx's Prescriptions: No Action metoprolol succinate 100 MG tablet extended release 24 hr 100 mg PO DAILY 90 Days Qty: 90 4RF atorvastatin [Lipitor] 80 MG tablet 80 mg PO HS clopidogrel [Plavix] 75 MG tablet 75 mg PO DAILY lisinopril 10 MG tablet 10 mg PO DAILY nitroglycerin [Nitrostat] 0.4 MG tablet, sublingual 0.4 mg Sublingual DIRECTED acetaminophen [Tylenol] 325 MG tablet 650 mg PO Q6H PRN PRN0RF (DME) Blood Glucose Test 1 EACH strip 1 ea Sub-Q AC Qty: 100 3RF Rx Instructions: One Touch Verio test strips hydroxyzine HCl 25 mg Tablet 25 mg PO QHS rivaroxaban 20 mg Tablet 20 mg PO DAILY insulin glargine [Lantus Solostar U-100 Insulin] 100 unit/mL (3 mL) Insulin Pen 32 unit SUBCUT HS aspirin 81 mg Tablet,Delayed Release (Dr/Ec) 81 mg PO DAILY isosorbide mononitrate 120 mg Tablet Extended Release 24 Hr 120 mg PO DAILY semaglutide 0.25 mg or 0.5 mg (2 mg/3 mL) Pen Injector 0.25 mg SUBCUT QWEEK Rx Instructions: for 4 weeks omeprazole 20 mg Capsule,Delayed Release(Dr/Ec) 20 mg PO BID Patient Comments: Pt states he doesn't take cephalexin 500 mg capsule 500 mg PO BID Patient Comments: On for life per Pt due to infections after bypass surgery. Medical Decision Making 0200 -- 72-year-old male with a history of hypertension, hyperlipidemia, coronary artery disease with history of inferior DE and RCA stenting in 2008 and history of peripheral vascular disease on triple anticoagulation therapy with aspirin, Plavix and Xarelto and diabetes who presents from home for chest pain that started while sitting at home 1 hour prior to arrival. EKG on arrival notes a rate of 167, normal axis, Q waves in inferior leads but no STEMI. Review of previous EKGs no evidence of atrial fibrillation. Patient denies any known history of atrial fibrillation. He reports a history of a cardiac ablation. Review of cardiology note from 2012 noted a history of SVT. His heart rate is as high as 160s. His blood pressure is hypertensive at 98/64. Suspect his hypotension is likely related to his tachycardia. Remainder of his vitals are within normal limits. We will give a dose of 5 mg Lopressor IV in addition to a fluid bolus, screening labs, portable chest x-ray. History and presentation does not appear consistent with PE or dissection. 0300 --labs and imaging reviewed. White blood cell count 11. Troponin negative. Glucose elevated at 443. Bicarb low at 20.7. Anion gap mildly elevated at 13.3. Creatinine elevated to 2.5 compared to his baseline previously here in June 2021 which was 1.8. He may have had more recent labs [place] the [place] which are similar. Chest x-ray no obvious acute disease. Discussed with nursing composing room supervisor and there were no more telemetry beds available. Patient states he is followed at the [facility]. Patient's heart rate is now ranging between 90s and 110s, A-fib. His blood pressure is 91/54. We will plan to transfer for new onset A-fib with continued telemetry monitoring and correction of electrolytes. 0320 --Case discussed with [facility] hospitalist --while on the phone, patient converted to sinus rhythm with heart rate 90s. Blood pressure improved to 111/54. They are recommending [facility] cardiology consult for recommendations. 0335 --Case discussed with [facility] cardiology --recommend obtaining a BNP. Recommending starting metoprolol succinate 100 mg twice daily and to follow-up at cardiology clinic. They do recommend admission for continued monitoring as A-fib likely is a symptom of another process as he is noted to have hyperglycemia with anion gap acidosis and TANIA. 0430 --discussed with Barbie GRISSOM at the [facility] and patient is accepted for transfer -- accepting physician Dr. Quinones. She reports that his creatinine was 2.1 in December 2021. Medical Records Medical records reviewed: Yes I reviewed the patient's medical records. Imaging Data Radiologic Study: Radiologist's impression: XR Chest Exam date and time: 06/14/2022 1:57 AM Age: 72 years old Clinical indication: Other: Chest pain, R/O acute disease TECHNIQUE: Imaging protocol: Radiologic exam of the chest. Views: 1 view. COMPARISON: CT CHEST/ABD/PEL WO 06/22/2020 4:52 PM FINDINGS: Lungs: Unremarkable. No consolidation. Pleural spaces: Unremarkable. No pleural effusion. No pneumothorax. Heart/Mediastinum: Unremarkable. No cardiomegaly. Bones/joints: Unremarkable. IMPRESSION: No acute findings. Lab Data Lab results reviewed: Yes I reviewed the patient's lab results. Labs: Laboratory Tests Range/Units 06/14/22 06/14/22 01:30 01:30 WBC (4.4-10.8) 10^3/uL 11.04 H RBC (4.36-5.78) 10^6/uL 4.82 Hgb (13.5-17.5) g/dL 14.6 Hct (40.0-50.0) % 44.4 MCV (80-95) fL 92 MCH (27.0-33.0) pg 30.3 MCHC (32.0-36.0) % 32.9 RDW (11.8-14.1) % 12.7 Plt Count (130-400) 10^3/uL 236 MPV (8.0-11.0) fL 11.0 Immature Gran % 0.5 Neutrophils % 65.0 Lymphocytes % 21.6 Monocytes % 10.4 Eosinophils % 1.8 Basophils % 0.7 Nucleated RBC % (0.0-0.3) % 0.0 Absolute Neutrophils (1.2-6.7) 10^3/uL 7.18 H Absolute Lymphocytes (1.2-3.4) 10^3/uL 2.38 Absolute Monocytes (0.1-0.8) 10^3/uL 1.15 H Absolute Eosinophils (0.0-0.7) 10^3/uL 0.20 Absolute Basophils (0.0-0.2) 10^3/uL 0.08 Sodium (136-145) mmol/L 134 L Potassium (3.5-5.1) mmol/L 4.0 Chloride (98-107) mmol/L 100 Carbon Dioxide (21.0-32.0) mmol/L 20.7 L Anion Gap (3-11) mmol/L 13.3 H BUN (7-18) mg/dL 37 H Creatinine (0.70-1.30) mg/dL 2.5 H Est GFR (CKD-EPI 2020) (mL/min/1.73m2) 26.30 Glucose (74-106) mg/dL 443 H Calcium (8.5-10.1) mg/dL 8.7 Magnesium (1.8-2.4) mg/dL 2.0 Total Bilirubin (0.2-1.0) mg/dL 0.4 AST (15-37) U/L 9 L ALT (16-63) U/L 18 Alkaline Phosphatase (46-116) U/L 87 Troponin I (<or=60) ng/L < 50 Total Protein (6.4-8.2) g/dL 7.9 Albumin (3.4-5.0) g/dL 3.8 ECG Data Attestation: I personally reviewed and interpreted this ECG (s) as follows: Interpretation: 0134 -- #1 -- rate of 167, afib, T wave inversion and Q waves inferior leads, no stemi. 0322 -- #2 -- rate of 93, sinus, T wave inversion and Q waves in inferior leads, no STEMI. HPI General Mode of arrival: ambulatory . Date/Time Provider Initiated Documentation: 06/14/22 01:37 . Limitations to Documentation: no limitations . Information obtained by: patient . HPI Narrative: Patient is a 72-year-old male with a history of hypertension, hyperlipidemia, coronary artery disease with history of inferior DE and RCA stenting in 2008 and history of peripheral vascular disease on triple anticoagulation therapy with aspirin, Plavix and Xarelto and diabetes who presents from home for chest pain that started while sitting at home 1 hour prior to arrival. Patient describes the pain as constant, squeezing and located substernal. He took 3 nitro without any relief. He denies any radiation of pain. He denies any fever, acute cough, nausea, vomiting, dizziness or significant shortness of breath. Patient states he is unaware of any previous history of atrial fibrillation but states he has had a cardiac ablation in the past. Review of records note that he has had a history of SVT. Patient states he took his metoprolol yesterday morning. He denies any alcohol or drug use. He denies any recent change in medications. Related Data Home Medications Medication Instructions Recorded Confirmed atorvastatin 80 mg tablet (Lipitor) 80 mg PO HS 11/08/15 06/14/22 clopidogrel 75 mg tablet (Plavix) 75 mg PO DAILY 11/08/15 06/14/22 lisinopril 10 mg tablet 10 mg PO DAILY 11/08/15 06/14/22 nitroglycerin 0.4 mg sublingual 0.4 mg sublingual DIRECTED 11/08/15 06/14/22 tablet (Nitrostat) acetaminophen 325 mg tablet 650 mg PO Q6H PRN PRN 11/11/15 06/14/22 (Tylenol) blood sugar diagnostic (Blood #100 strips 11/01/17 06/14/22 Glucose Test strips) metoprolol succinate 100 mg 100 mg PO DAILY 90 days #90 12/19/17 06/14/22 tablet,extended release 24 hr tab-caps hydroxyzine HCl 25 mg tablet 25 mg PO QHS 06/05/20 06/14/22 rivaroxaban 20 mg tablet 20 mg PO DAILY 06/05/20 06/14/22 cephalexin 500 mg capsule 500 mg PO BID 07/19/21 06/14/22 aspirin 81 mg tablet,delayed 81 mg PO DAILY 06/14/22 06/14/22 release insulin glargine 100 unit/mL (3 32 unit subcut HS 06/14/22 06/14/22 mL) subcutaneous pen (Lantus Solostar U-100 Insulin) isosorbide mononitrate 120 mg 120 mg PO DAILY 06/14/22 06/14/22 tablet,extended release 24 hr omeprazole 20 mg capsule,delayed 20 mg PO BID 06/14/22 06/14/22 release semaglutide 0.25 mg or 0.5 mg (2 0.25 mg subcut QWEEK 06/14/22 06/14/22 mg/3 mL) subcutaneous pen injector Previous Rx's Medication Instructions Recorded acetaminophen 325 mg tablet 650 mg PO Q6H PRN PRN 11/11/15 (Tylenol) blood sugar diagnostic (Blood #100 strips 11/01/17 Glucose Test strips) metoprolol succinate 100 mg 100 mg PO DAILY 90 days #90 12/19/17 tablet,extended release 24 hr tab-caps Allergies Allergy/AdvReac Type Severity Reaction Status Date / Time No Known Allergies Allergy Unverified 06/14/22 01:55 General Stated Complaint: Chest Pain NADEEM: 2 Review of Systems All systems reviewed & are unremarkable except as noted in HPI and below Constitutional Constitutional: Reports as per HPI, Denies chills and Denies fever(s) Eyes Eyes: Denies blurry vision ENT Ears, Nose, Mouth, and Throat: Denies dizziness, Denies sore throat and Denies throat swelling Cardiovascular Cardiovascular: Reports chest pain and Denies dyspnea Respiratory Respiratory: Denies cough and Denies dyspnea Gastrointestinal Gastrointestinal: Denies abdominal pain, Denies diarrhea and Denies vomiting Genitourinary Genitourinary: Denies hematuria and Denies dysuria Musculoskeletal Musculoskeletal: Denies back pain and Denies numbness Integumentary/Breasts Skin/Breast: Denies lesions and Denies rash Neurologic Neurologic: Denies dizziness, Denies localized weakness and Denies numbness Allergic/Immunologic Allergic/Immunologic: Denies throat swelling PFSH All Active Problems (Updated 06/14/22 @ 04:38 by Noa Herron DO) New onset atrial fibrillation (Acute) Hyperglycemia (Acute) TANIA (acute kidney injury) (Acute) Metabolic acidosis, increased anion gap (Acute) AAA (abdominal aortic aneurysm) (Chronic) Dry gangrene (Chronic) Folic acid deficiency anemia (Chronic) MSSA bacteremia (Acute) In a patient with nonbiologic graft material DVT (deep venous thrombosis) (Acute) Tobacco use disorder (Acute) Patient has not smoked in 5 years Arterial leg ulcer (Acute) Arterial insufficiency with ischemic ulcer (Acute) Infected stasis ulcer of right lower extremity (Acute) MSSA bacteremia (Acute) Kidney disease, chronic, stage IV (GFR 15-29 ml/min) (Acute) Hyperlipidemia (Chronic) PVD (peripheral vascular disease) (Chronic) Vomiting (Acute) Medical History Non-ST elevation (NSTEMI) myocardial infarction STEMI (ST elevation myocardial infarction) Surgical History Atheroscler nonbiologic bypass graft both legs w/intermit claudication Status post left axillary artery to left femoral artery bypass, left to right femoral-femoral bypass, right SFA-posterior tibial bypass Social History Smoking/Tobacco Use Status: Former Tobacco Use Smoking risk assessment performed?: Yes Alcohol Intake: never Drug use: Daily Substance use type: marijuana Details: Last smoke an hour ago Do you feel safe at home: Yes Do you feel safe in your relationship?: Yes Exam Const General: cooperative and no acute distress Orientation: alert, awake and oriented x3 HENMT Head: normal to inspection Face and sinus: normal facial exam Eyes General: appearance normal, both eyes and all related structures Pupils: PERRL EOM: EOM intact bilaterally Neck Neck: normal visual inspection and No submandibular swelling Lymphatic: no lymphadenopathy noted Chest Chest: normal inspection of the chest and no tenderness Resp Effort & Inspection: normal respiratory effort and able to speak in complete sentences Auscultation: clear to auscultation bilaterally Cardio Rate: tachycardic Rhythm: abnormal rhythm irregularly irregular GI Inspection: normal to inspection and obesity Palpation: soft, not firm, not rigid and nontender Auscultation: hypoactive bowel sounds Skin General skin exam: no rashes or lesions noted Neuro General: patient alert, patient awake and patient oriented x3 Cognition: normal cognition Speech: speech normal Motor: muscle tone normal throughout Sensory Exam: no sensory deficits noted Extrem General: normal to inspection, full ROM, capillary refill normal, no calf tenderness bilaterally and edema Laterality: bilateral (< 1+ pitting b/l lower legs) Psych Appearance: grossly normal Mental Status: mental status grossly normal Speech and Movement: speech and movement normal Affect: normal affect Course Vital Signs Vital signs: Vital Signs Temperature 97.9 F 06/14/22 01:28 Pulse 161 H 06/14/22 01:28 Respiratory Rate 20 06/14/22 01:28 Blood Pressure 121/64 06/14/22 01:28 Pulse Oximetry 95 06/14/22 01:28 Temperature 97.9 F 06/14/22 01:28 Temperature Source Tympanic 06/14/22 01:28 Pulse 161 H 06/14/22 01:28 Respiratory Rate 20 06/14/22 01:28 Respiratory Effort Normal, Short of Breath 06/14/22 01:33 Respiratory Depth Normal 06/14/22 01:33 Respiratory Pattern Normal 06/14/22 01:33 Blood Pressure 121/64 06/14/22 01:28 Blood Pressure Position Sitting 06/14/22 01:28 Pulse Oximetry 95 06/14/22 01:28 Oxygen Delivery Method Room Air 06/14/22 01:28 Oxygen Flow Rate 0 06/14/22 01:28 Pain Level 4 06/14/22 01:28 Lab/Test Results Lab/Test Results: Laboratory Tests Range/Units 06/14/22 01:30 WBC (4.4-10.8) 10^3/uL 11.04 H RBC (4.36-5.78) 10^6/uL 4.82 Hgb (13.5-17.5) g/dL 14.6 Hct (40.0-50.0) % 44.4 MCV (80-95) fL 92 MCH (27.0-33.0) pg 30.3 MCHC (32.0-36.0) % 32.9 RDW (11.8-14.1) % 12.7 Plt Count (130-400) 10^3/uL 236 MPV (8.0-11.0) fL 11.0 Immature Gran % 0.5 Neutrophils % 65.0 Lymphocytes % 21.6 Monocytes % 10.4 Eosinophils % 1.8 Basophils % 0.7 Nucleated RBC % (0.0-0.3) % 0.0 Absolute Neutrophils (1.2-6.7) 10^3/uL 7.18 H Absolute Lymphocytes (1.2-3.4) 10^3/uL 2.38 Absolute Monocytes (0.1-0.8) 10^3/uL 1.15 H Absolute Eosinophils (0.0-0.7) 10^3/uL 0.20 Absolute Basophils (0.0-0.2) 10^3/uL 0.08
[2022-06-14] MEDS: Normal Saline 250 ML 500 ML IV (02:00)
--- NOTE | 2022-06-14 02:00 | DI.RAD_ITS ---
Exam(s) XR PORTABLE CHEST AP EXAM: XR PORTABLE CHEST AP CLINICAL HISTORY: chest pain, r/o acute disease TECHNIQUE: 2D digital imaging was performed. COMPARISON: CR CHEST 2 VIEWS PA,LAT from 10/31/2017 FINDINGS: Leads overlie the chest. LUNGS: Clear. No pleural abnormality seen. HEART: Normal size. AORTA: Normal diameter. BONES: Unremarkable for age. Soft tissues: Unremarkable. IMPRESSION: No acute findings. DATA REPOSITORY: RADIATION DOSE DELIVERED:
[2022-06-14 02:05] LABS: ALT 18 U/L (16-63); AST 9 U/L (15-37); Albumin 3.8 g/dL (3.4-5.0); Alkaline Phosphatase 87 U/L (46-116); Anion Gap 13.3 mmol/L (3-11); BUN 37 mg/dL (7-18); Bilirubin, Total 0.4 mg/dL (0.2-1.0); CO2 20.7 mmol/L (21.0-32.0); CREATININE 2.5 mg/dL (0.70-1.30); Calcium 8.7 mg/dL (8.5-10.1); Chloride 100 mmol/L (98-107); Glucose 443 mg/dL (74-106); Sodium 134 mmol/L (136-145); Total Protein 7.9 g/dL (6.4-8.2); Troponin I < 50 ng/L (<or=60)
[2022-06-14] MEDS: Metoprolol 5 MG/5 ML VIAL IVP (02:08)
--- NOTE | 2022-06-14 03:00 | RT.EKG_ITS ---
APPROVED REPORT Exam: Resting ECG Reason for Exam: chest pain Patient Location: E HR:93 bpm ECG Measurements Heart Rate 93 AXIS OH 174 P 37 QRSd 91 QRS 27 QT 367 T -1 QTc 457 Conclusion Sinus rhythm...normal P axis, V-rate 60- 99 Low voltage, precordial leads...precordial leads <1.0mV Consider inferior infarct...Q >35mS in II III aVF. Sinus. Normal axis. Q waves/T wave inversion inferior leads. No STEMI. I have reviewed and interpreted ECG and agree with software generated interpretation.
--- NOTE | 2022-06-14 03:38 | DI.VRAD_ITS ---
PROCEDURE INFORMATION: Exam: XR Chest Exam date and time: 06/14/2022 1:57 AM Age: 72 years old Clinical indication: Other: Chest pain, R/O acute disease TECHNIQUE: Imaging protocol: Radiologic exam of the chest. Views: 1 view. COMPARISON: CT CHEST/ABD/PEL WO 06/22/2020 4:52 PM FINDINGS: Lungs: Unremarkable. No consolidation. Pleural spaces: Unremarkable. No pleural effusion. No pneumothorax. Heart/Mediastinum: Unremarkable. No cardiomegaly. Bones/joints: Unremarkable. IMPRESSION: No acute findings. Dictated and Authenticated by: Latrell Hartley MD. Ordering:MIRIAM Latham MD
[2022-06-14 04:08] LABS: BE (Venous) -6 mmol/L (-2-3); HCO3 (Venous) 19 mmol/L (23-28); O2 Sat (Venous) 91 %; TCO2 (Venous) 18 mmol/L (24-29); pCO2 (Venous) 32 mmHg (41-51); pH (Venous) 7.39 (7.31-7.41); pO2 (Venous) 59 mmHg
[2022-06-14] MEDS: Insulin REGULAR-Human 100 UNITS/ML UNIT SC (04:20)
[2022-06-14 04:37] LABS: NT-proBNP 880 pg/mL (<300)
--- NOTE | 2022-06-14 04:47 | NUR.NOTE ---
Nursing Note:Report called on Pt to [facility] at the [facility] in [place]. Awaiting transportation.
[2022-06-14 04:53] LABS: Source Nasal/Nares
[2022-06-14 05:03] LABS: Troponin I < 50 ng/L (<or=60)
[2022-06-14 05:41] LABS: COVID-19 PCR Negative (Negative)
== END 2022-06-14 07:21 ==
PROVIDERS: Emergency Provider Physician Assistant; PCP Internal Medicine
DX: I48.91 Unspecified atrial fibrillation (principal); N17.9 Acute kidney failure, unspecified; E11.65 Type 2 diabetes mellitus with hyperglycemia; E87.20 Acidosis, unspecified; I10 Essential (primary) hypertension; I25.10 Atherosclerotic heart disease of native coronary artery without angina pectoris; I25.2 Old myocardial infarction; E78.5 Hyperlipidemia, unspecified; Z79.01 Long term (current) use of anticoagulants; Z79.02 Long term (current) use of antithrombotics/antiplatelets; Z79.82 Long term (current) use of aspirin; Z20.822 Contact with and (suspected) exposure to COVID-19
CPT/HCPCS: 36415; 80053; 82805; 87635; 93005; 96361; 96372; 96374; 99285; 71045; 83735; 83880; 84484; 85025; 93010

== ENCOUNTER 2023-03-20 09:35 | Emergency (ER) | payer OTHER, SELFPAY ==
[2023-03-20 09:40] VITALS: BP 143/85; PULSE 75; RESP 16; TEMP 36.3; O2SAT 96
--- NOTE | 2023-03-20 10:38 | ED.GENADUL_ITS ---
Discharge Plan Disposition Patient Disposition: Home Condition: Stable Discharge Details Clinical Impression: Infected ulcer of skin Primary Care Provider: Daniele Chambers ED Provider: Jose Mcgee Home Meds and New Rx's Prescriptions: New cephalexin 500 mg tablet 500 mg PO QID Qty: 37 0RF doxycycline hyclate 100 mg tablet 100 mg PO BID Qty: 17 0RF Continued metoprolol succinate 100 MG tablet extended release 24 hr 100 mg PO DAILY 90 Days Qty: 90 4RF atorvastatin [Lipitor] 80 MG tablet 80 mg PO HS clopidogrel [Plavix] 75 MG tablet 75 mg PO DAILY lisinopril 10 MG tablet 10 mg PO DAILY nitroglycerin [Nitrostat] 0.4 MG tablet, sublingual 0.4 mg Sublingual DIRECTED (DME) Blood Glucose Test 1 EACH strip 1 ea Sub-Q AC Qty: 100 3RF Rx Instructions: One Touch Verio test strips hydroxyzine HCl 25 mg Tablet 25 mg PO QHS rivaroxaban 20 mg Tablet 20 mg PO DAILY insulin glargine [Lantus Solostar U-100 Insulin] 100 unit/mL (3 mL) Insulin Pen 32 unit SUBCUT HS Patient Comments: Taking 34 units aspirin 81 mg Tablet,Delayed Release (Dr/Ec) 81 mg PO DAILY isosorbide mononitrate 120 mg Tablet Extended Release 24 Hr 120 mg PO DAILY semaglutide 0.25 mg or 0.5 mg (2 mg/3 mL) Pen Injector 0.25 mg SUBCUT QWEEK Patient Comments: 0.5 mg q weekly Rx Instructions: for 4 weeks omeprazole 20 mg Capsule,Delayed Release(Dr/Ec) 20 mg PO BID Patient Comments: Pt states he doesn't take Held cephalexin 500 mg capsule 500 mg PO BID Hold Instructions: Resume on 03/30/23. Patient Comments: On for life per Pt due to infections after bypass surgery. Discharge Instructions Instructions: Doxycycline (By mouth), Chronic Wound Care (ED) Additional Instructions: Please contact your primary care physician to arrange follow-up. 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 You may need additional outpatient diagnostic testing and treatment. Return to the ER immediately for any worsening or new concerning symptoms. Referrals: Daniele Chambers [Primary Care Provider] - Discharge Data Discharge Date/Time-TO BE ENTERED AT DEPARTURE: 03/20/23 12:01 Medical Decision Making 1045 --73-year-old male with history of diabetes, MSSA bacteremia, chronic kidney disease, peripheral vascular disease, here with chronic right plantar foot ulcer now draining purulent discharge. Concern for infected diabetic foot ulcer versus progression to osteomyelitis. -- X-ray of the right foot reviewed and interpreted by radiology:Soft tissue ulceration lateral to 5th MTP joint. No radiographic evidence of osteomyelitis. Recommend MRI for further evaluation. -- Patient is on chronic prophylactic cephalexin. I will increase dosing to 4 times daily and add MRSA coverage with doxycycline. Plan for close outpatient follow-up with podiatry on Friday. Discharge plan discussed with the patient. He understands importance of timely outpatient follow-up. He understands he will likely need additional outpatient diagnostic work-up and treatment. Usual customary discharge instructions were reviewed. HPI General Mode of arrival: ambulatory . Date/Time Provider Initiated Documentation: 03/20/23 10:01 . Limitations to Documentation: no limitations . Information obtained by: patient . HPI Narrative: 73-year-old male presents with chief complaint of foot infection. Patient notes chronic ulcer base of his right fifth toe over the past few months. Patient notes he has been seen by [place] podiatry who provided him some ointment 2 months ago. Patient states he is on chronic cephalexin prophylactically given prior MRSA infection. Patient states he was planning on following up with podiatry after the holiday but his son saw his foot today and was concerned and recommended he come to the ER. Patient states he feels fine and has no fever. He states he has been un able to look at the wound himself but does note that it has had some drainage. Related Data Home Medications Medication Instructions Recorded Confirmed atorvastatin 80 mg tablet (Lipitor) 80 mg PO HS 11/08/15 03/20/23 clopidogrel 75 mg tablet (Plavix) 75 mg PO DAILY 11/08/15 03/20/23 lisinopril 10 mg tablet 10 mg PO DAILY 11/08/15 03/20/23 nitroglycerin 0.4 mg sublingual 0.4 mg sublingual DIRECTED 11/08/15 03/20/23 tablet (Nitrostat) blood sugar diagnostic (Blood #100 strips 11/01/17 03/20/23 Glucose Test strips) metoprolol succinate 100 mg 100 mg PO DAILY 90 days #90 12/19/17 03/20/23 tablet,extended release 24 hr tab-caps hydroxyzine HCl 25 mg tablet 25 mg PO QHS 06/05/20 03/20/23 rivaroxaban 20 mg tablet 20 mg PO DAILY 06/05/20 03/20/23 cephalexin 500 mg capsule 500 mg PO BID 07/19/21 03/20/23 aspirin 81 mg tablet,delayed 81 mg PO DAILY 06/14/22 03/20/23 release insulin glargine 100 unit/mL (3 32 unit subcut HS 06/14/22 03/20/23 mL) subcutaneous pen (Lantus Solostar U-100 Insulin) isosorbide mononitrate 120 mg 120 mg PO DAILY 06/14/22 03/20/23 tablet,extended release 24 hr omeprazole 20 mg capsule,delayed 20 mg PO BID 06/14/22 03/20/23 release semaglutide 0.25 mg or 0.5 mg (2 0.25 mg subcut QWEEK 06/14/22 03/20/23 mg/3 mL) subcutaneous pen injector cephalexin 500 mg tablet 500 mg PO QID #37 tabs 03/20/23 doxycycline hyclate 100 mg tablet 100 mg PO BID #17 tabs 03/20/23 Previous Rx's Medication Instructions Recorded blood sugar diagnostic (Blood #100 strips 11/01/17 Glucose Test strips) metoprolol succinate 100 mg 100 mg PO DAILY 90 days #90 12/19/17 tablet,extended release 24 hr tab-caps cephalexin 500 mg tablet 500 mg PO QID #37 tabs 03/20/23 doxycycline hyclate 100 mg tablet 100 mg PO BID #17 tabs 03/20/23 Allergies Allergy/AdvReac Type Severity Reaction Status Date / Time No Known Allergies Allergy Unverified 03/20/23 09:45 General Stated Complaint: Cellulitis NADEEM: 3 Review of Systems All systems reviewed & are unremarkable except as noted in HPI and below Constitutional Constitutional: Denies fever(s) Integumentary/Breasts Skin/Breast: Reports as per HPI PFSH All Active Problems (Updated 03/20/23 @ 11:30 by Jose Mcgee MD) Infected ulcer of skin (Acute) AAA (abdominal aortic aneurysm) (Chronic) Dry gangrene (Chronic) Folic acid deficiency anemia (Chronic) MSSA bacteremia (Acute) In a patient with nonbiologic graft material DVT (deep venous thrombosis) (Acute) Tobacco use disorder (Acute) Patient has not smoked in 5 years Arterial leg ulcer (Acute) Arterial insufficiency with ischemic ulcer (Acute) Infected stasis ulcer of right lower extremity (Acute) MSSA bacteremia (Acute) Kidney disease, chronic, stage IV (GFR 15-29 ml/min) (Acute) Hyperlipidemia (Chronic) PVD (peripheral vascular disease) (Chronic) Vomiting (Acute) Medical History Ambulatory dysfunction Intractable back pain TNAIA (acute kidney injury) Back spasm CAD (coronary artery disease) Acute kidney injury superimposed on chronic kidney disease STEMI (ST elevation myocardial infarction) Non-ST elevation (NSTEMI) myocardial infarction Diabetes mellitus type 2 in nonobese Surgical History Atheroscler nonbiologic bypass graft both legs w/intermit claudication Status post left axillary artery to left femoral artery bypass, left to right femoral-femoral bypass, right SFA-posterior tibial bypass Social History Smoking/Tobacco Use Status: Former Tobacco Use Smoking risk assessment performed?: Yes Alcohol Intake: never Drug use: Daily Substance use type: marijuana Details: Last smoke an hour ago Housing: apartment Do you feel safe at home: Yes Do you feel safe in your relationship?: Yes Exam Const General: cooperative and no acute distress Neuro General: patient alert, patient awake and tone normal Extrem Right lower extremity: foot Details: edema Location: of the dorsal foot and of the plantar foot and other (draining ulcer base 5th toe plantar surface; mild surrounding erythema); no unusual warmth Course Vital Signs Vital signs: Vital Signs Temperature 36.3 C L 03/20/23 09:40 Pulse 75 03/20/23 09:40 Respiratory Rate 16 03/20/23 09:40 Blood Pressure 143/85 H 03/20/23 09:40 Pulse Oximetry 96 03/20/23 09:40 Temperature 36.3 C L 03/20/23 09:40 Temperature Source Temporal Artery Scan 03/20/23 09:40 Pulse 75 03/20/23 09:40 Respiratory Rate 16 03/20/23 09:40 Respiratory Effort Normal 03/20/23 09:42 Blood Pressure 143/85 H 03/20/23 09:40 Blood Pressure Position Sitting 03/20/23 09:40 Pulse Oximetry 96 03/20/23 09:40 Oxygen Delivery Method Room Air 03/20/23 09:40 Oxygen Flow Rate 0 03/20/23 09:40 Pain Level 1 03/20/23 09:40 Lab/Test Results Lab/Test Results: 03/20/23 10:25 Foot - Right Wound Culture - Pending 03/20/23 10:25 Foot - Right Gram Stain - Pending
[2023-03-20] MEDS: Doxycycline Hyclate 100 MG CAP PO (10:43)
[2023-03-20] MEDS: Cephalexin 500 MG CAP PO (10:43)
--- NOTE | 2023-03-20 11:00 | DI.RAD_ITS ---
Exam(s) XR FOOT RT COMPLETE EXAM: XR FOOT RT COMPLETE CLINICAL HISTORY: ulcer 5th mtp infected. TECHNIQUE: 2D digital imaging was performed of the right foot. Three images were obtained. AP, obl ique and lateral views were obtained. COMPARISON: MR MR LOWER EXTREMITY RT WO/W from 06/26/2020 FINDINGS: BONES: No acute fracture is present. No bony destructive lesion or periosteal reaction is seen. There is absence of the distal phalanx of the 5th toe. The bones are osteopenic. JOINTS: No dislocation present. SOFT TISSUE: There is soft tissue swelling and gas seen adjacent to the 5th metatarsophalangeal joint which corresponds to the patient's known ulcer. IMPRESSION: 1. No radiographic evidence to suggest osteomyelitis. 2. Soft tissue ulceration lateral to the 5th MTP joint. If there is continued concern, an MRI should be considered for further evaluation. DATA REPOSITORY: RADIATION DOSE DELIVERED:
--- NOTE | 2023-03-20 11:43 | DI.VRAD_ITS ---
PROCEDURE INFORMATION: Exam: XR Right Foot Exam date and time: 03/20/2023 10:52 AM Age: 73 years old Clinical indication: Pain; Foot; Right; Patient HX: Infected bleeding ulcer 5th mtp TECHNIQUE: Imaging protocol: Radiologic exam of the right foot. Views: 3 or more views. COMPARISON: MR LOWER EXTREMITY RT WO/W 06/26/2020 12:41 PM FINDINGS: Bones/joints: Osseous demineralization. No acute osteolysis, periosteal reaction or osseous injury. Possible partial or complete absence of 5th distal phalanx; correlate with prior surgical history. Multifocal bone infarcts seen on prior MRI not well visualized radiographically. Minimal degenerative changes. Soft tissues: Soft tissue swelling and gas lateral to 5th metatarsophalangeal joint corresponds to known ulcer. IMPRESSION: Soft tissue ulceration lateral to 5th MTP joint. No radiographic evidence of osteomyelitis. Recommend MRI for further evaluation. Dictated and Authenticated by: Terrance Prater MD. Ordering:OLIVIA Garcia MD
[2023-03-20] MEDS: Doxycycline Hyclate 100 MG, 2 CAPS/BTL PO (12:02)
--- NOTE | 2023-03-24 09:32 | NUR.NOTE ---
Accessed Pt chart to document antibiotics given for visit. Received Positive speciman results.
== END 2023-03-20 12:01 | disposition home or self-care (01) ==
PROVIDERS: Emergency Provider Student in an Organized Health Care Education/Training Program; PCP Internal Medicine
DX: L98.499 Non-pressure chronic ulcer of skin of other sites with unspecified severity (principal); N18.4 Chronic kidney disease, stage 4 (severe); E11.621 Type 2 diabetes mellitus with foot ulcer; E11.22 Type 2 diabetes mellitus with diabetic chronic kidney disease
CPT/HCPCS: 36415; 87077; 99283; 73630; 87070; 87186; 87205; 99284

== ENCOUNTER 2023-03-22 18:12 | Emergency (ER) | payer OTHER, SELFPAY ==
[2023-03-22 18:25] VITALS: BP 149/81; PULSE 80; RESP 18; TEMP 36.5; O2SAT 99
--- NOTE | 2023-03-22 19:19 | ED.GENADUL_ITS ---
Discharge Plan Disposition Patient Disposition: Home Condition: Stable Discharge Details Clinical Impression: Diabetic foot ulcer Primary Care Provider: Daniele Chambers ED Provider: Christian Merchant Home Meds and New Rx's Prescriptions: Continued metoprolol succinate 100 MG tablet extended release 24 hr 100 mg PO DAILY 90 Days Qty: 90 4RF atorvastatin [Lipitor] 80 MG tablet 80 mg PO HS clopidogrel [Plavix] 75 MG tablet 75 mg PO DAILY lisinopril 10 MG tablet 10 mg PO DAILY nitroglycerin [Nitrostat] 0.4 MG tablet, sublingual 0.4 mg Sublingual DIRECTED (DME) Blood Glucose Test 1 EACH strip 1 ea Sub-Q AC Qty: 100 3RF Rx Instructions: One Touch Verio test strips hydroxyzine HCl 25 mg Tablet 25 mg PO QHS rivaroxaban 20 mg Tablet 20 mg PO DAILY insulin glargine [Lantus Solostar U-100 Insulin] 100 unit/mL (3 mL) Insulin Pen 32 unit SUBCUT HS Patient Comments: Taking 34 units aspirin 81 mg Tablet,Delayed Release (Dr/Ec) 81 mg PO DAILY isosorbide mononitrate 120 mg Tablet Extended Release 24 Hr 120 mg PO DAILY semaglutide 0.25 mg or 0.5 mg (2 mg/3 mL) Pen Injector 0.25 mg SUBCUT QWEEK Patient Comments: 0.5 mg q weekly Rx Instructions: for 4 weeks omeprazole 20 mg Capsule,Delayed Release(Dr/Ec) 20 mg PO BID Patient Comments: Pt states he doesn't take cephalexin 500 mg capsule 500 mg PO BID Hold Instructions: Resume on 03/30/23. Patient Comments: On for life per Pt due to infections after bypass surgery. cephalexin 500 mg tablet 500 mg PO QID Qty: 37 0RF doxycycline hyclate 100 mg tablet 100 mg PO BID Qty: 17 0RF Discharge Instructions Instructions: Diabetic Foot Ulcers (ED) Additional Instructions: You were seen in the emergency department for your diabetic foot ulcer of your right plantar surface. You need to seek the [facility] primary care for referral to their wound care department if they cannot see you we have wound care specialty department in this hospital. Please continue your antibiotics given to you on prior visit. We checked your inflammatory markers which are hallmark of bone infection which were not significantly elevated enough, you may need to discuss with your primary care possible osteomyelitis and MRI in the future. Please return to the ER for severe increase in redness and warmth to touch of the foot. Referrals: [facility] [Provider Group] Daniele Chambers [Primary Care Provider] - Discharge Data Discharge Date/Time-TO BE ENTERED AT DEPARTURE: 03/22/23 20:54 Medical Decision Making This dictation utilizes [id number] dictation software and may contain unedited grammatical errors. 73 y/o M presents to ED today with a chief complaint of known diabetic foot ulcer, concern over yellow pus on bandaid- [facility]. Onset and characteristics include pain with weightbearing, denies fever, no redness, no proximal foot pain, no calf tenderness, no active drainage. Patients' medical history: t2DM. Family and social history: noncontributory. Pertinent exam findings / vital signs include diabetic foot ulcer on the plantar surface of the foot proximal to the fifth MTP, no active drainage, no rizo e rythema, no fluctuance. Differential / pathologies of concern include diabetic foot ulcer, osteomyelitis. Diagnostic studies of: -CBC, CMP, CRP, ESR. -no leukocytosis -ESR WNL -CRP mild elevation -CMP benign Interventions of: -Wound care. ED Course: Counseled the patient on the need to follow-up with wound care department for diabetic foot ulcer, I counseled him that his inflammatory markers are normal at this time but he should [facility] for [facility] scheduling of an [facility] of his foot. Stated that his critically important for the future of his foot and limb to take care of this wound and keep his diabetes under control. Counseled to return to the ED for any signs of fever, increasing redness and rizo erythema and warmth to touch of the foot. Findings not consistent with abscess, osteomyelitis. Disposition of Diabetic Foot Ulcer. Patient verbalized understanding of the plan and return to ED criteria and engaged in shared decision making. Medical Records Medical records reviewed: Yes I reviewed the patient's medical records. Lab Data Lab results reviewed: Yes I reviewed the patient's lab results. Labs: Laboratory Tests Range/Units 03/22/23 19:50 WBC (4.4-10.8) 10^3/uL 8.49 RBC (4.36-5.78) 10^6/uL 4.20 L Hgb (13.5-17.5) g/dL 12.8 L Hct (40.0-50.0) % 38.7 L MCV (80-95) fL 92 MCH (27.0-33.0) pg 30.5 MCHC (32.0-36.0) % 33.1 RDW (11.8-14.1) % 13.5 Plt Count (130-400) 10^3/uL 214 MPV (8.0-11.0) fL 10.3 Immature Gran % 0.6 Neutrophils % 62.3 Lymphocytes % 22.9 Monocytes % 10.8 Eosinophils % 2.7 Basophils % 0.7 Nucleated RBC % (0.0-0.3) % 0.0 Absolute Neutrophils (1.2-6.7) 10^3/uL 5.29 Absolute Lymphocytes (1.2-3.4) 10^3/uL 1.94 Absolute Monocytes (0.1-0.8) 10^3/uL 0.92 H Absolute Eosinophils (0.0-0.7) 10^3/uL 0.23 Absolute Basophils (0.0-0.2) 10^3/uL 0.06 ESR (0-20) mm/hr 8 Sodium (136-145) mmol/L 137 Potassium (3.5-5.1) mmol/L 4.4 Chloride (98-107) mmol/L 106 Carbon Dioxide (21.0-32.0) mmol/L 22.8 Anion Gap (3-11) mmol/L 8.2 BUN (7-18) mg/dL 42 H Creatinine (0.70-1.30) mg/dL 2.3 H Est GFR (CKD-EPI 2020) (mL/min/1.73m2) 28.89 Glucose (74-106) mg/dL 135 H Calcium (8.5-10.1) mg/dL 8.9 Total Bilirubin (0.2-1.0) mg/dL 0.5 AST (15-37) U/L 9 L ALT (16-63) U/L 18 Alkaline Phosphatase (46-116) U/L 58 C-Reactive Protein (0.0-0.3) mg/dL 0.62 H Total Protein (6.4-8.2) g/dL 7.7 Albumin (3.4-5.0) g/dL 3.3 L HPI General Date/Time Provider Initiated Documentation: 03/22/23 18:21 . HPI Narrative: 73 year-old male presents to ED today by POV/ambulating with a chief complaint of ulcer on sole of R foot, proximal to the 5th MCP on plantar surface with onset noted for over a week- was seen on Thanksgiving and XR'd and placed on antibiotics, said there was some purulent material on a bandaid change today and wanted to be re-checked. [facility]. Quality described as not overly painful unless WB, no radiation to rizo erythema in foot, purulent active drainage, fever, ankle pain. Severity is described as 3-4/10. Palliating factors include nothing specific attempted. Provoking factors include nothing specific. Events leading up to the incident/Associated Symptoms: Patient has longstanding t2DM. Patient is anticoagulated on Xarelto, and on clopidogrel. Related Data Home Medications Medication Instructions Recorded Confirmed atorvastatin 80 mg tablet (Lipitor) 80 mg PO HS 11/08/15 03/20/23 clopidogrel 75 mg tablet (Plavix) 75 mg PO DAILY 11/08/15 03/20/23 lisinopril 10 mg tablet 10 mg PO DAILY 11/08/15 03/20/23 nitroglycerin 0.4 mg sublingual 0.4 mg sublingual DIRECTED 11/08/15 03/20/23 tablet (Nitrostat) blood sugar diagnostic (Blood #100 strips 11/01/17 03/20/23 Glucose Test strips) metoprolol succinate 100 mg 100 mg PO DAILY 90 days #90 12/19/17 03/20/23 tablet,extended release 24 hr tab-caps hydroxyzine HCl 25 mg tablet 25 mg PO QHS 06/05/20 03/20/23 rivaroxaban 20 mg tablet 20 mg PO DAILY 06/05/20 03/20/23 cephalexin 500 mg capsule 500 mg PO BID 07/19/21 03/20/23 aspirin 81 mg tablet,delayed 81 mg PO DAILY 06/14/22 03/20/23 release insulin glargine 100 unit/mL (3 32 unit subcut HS 06/14/22 03/20/23 mL) subcutaneous pen (Lantus Solostar U-100 Insulin) isosorbide mononitrate 120 mg 120 mg PO DAILY 06/14/22 03/20/23 tablet,extended release 24 hr omeprazole 20 mg capsule,delayed 20 mg PO BID 06/14/22 03/20/23 release semaglutide 0.25 mg or 0.5 mg (2 0.25 mg subcut QWEEK 06/14/22 03/20/23 mg/3 mL) subcutaneous pen injector cephalexin 500 mg tablet 500 mg PO QID #37 tabs 03/20/23 doxycycline hyclate 100 mg tablet 100 mg PO BID #17 tabs 03/20/23 Previous Rx's Medication Instructions Recorded blood sugar diagnostic (Blood #100 strips 11/01/17 Glucose Test strips) metoprolol succinate 100 mg 100 mg PO DAILY 90 days #90 12/19/17 tablet,extended release 24 hr tab-caps cephalexin 500 mg tablet 500 mg PO QID #37 tabs 03/20/23 doxycycline hyclate 100 mg tablet 100 mg PO BID #17 tabs 03/20/23 Allergies Allergy/AdvReac Type Severity Reaction Status Date / Time No Known Allergies Allergy Unverified 03/20/23 09:45 General Stated Complaint: Cellulitis NADEEM: 3 Review of Systems All systems reviewed & are unremarkable except as noted in HPI and below PFSH All Active Problems (Updated 03/22/23 @ 20:17 by NERI Anderson) Diabetic foot ulcer (Acute) Infected ulcer of skin (Acute) AAA (abdominal aortic aneurysm) (Chronic) Dry gangrene (Chronic) Folic acid deficiency anemia (Chronic) MSSA bacteremia (Acute) In a patient with nonbiologic graft material DVT (deep venous thrombosis) (Acute) Tobacco use disorder (Acute) Patient has not smoked in 5 years Arterial leg ulcer (Acute) Arterial insufficiency with ischemic ulcer (Acute) Infected stasis ulcer of right lower extremity (Acute) MSSA bacteremia (Acute) Kidney disease, chronic, stage IV (GFR 15-29 ml/min) (Acute) Hyperlipidemia (Chronic) PVD (peripheral vascular disease) (Chronic) Vomiting (Acute) Medical History Ambulatory dysfunction Intractable back pain TANIA (acute kidney injury) Back spasm CAD (coronary artery disease) Acute kidney injury superimposed on chronic kidney disease STEMI (ST elevation myocardial infarction) Non-ST elevation (NSTEMI) myocardial infarction Diabetes mellitus type 2 in nonobese Surgical History Atheroscler nonbiologic bypass graft both legs w/intermit claudication Status post left axillary artery to left femoral artery bypass, left to right femoral-femoral bypass, right SFA-posterior tibial bypass Social History Smoking/Tobacco Use Status: Former Tobacco Use Smoking risk assessment performed?: Yes Alcohol Intake: never Drug use: Daily Substance use type: marijuana Details: Last smoke an hour ago Housing: apartment Do you feel safe at home: Yes Do you feel safe in your relationship?: Yes Exam Narrative Exam Narrative: GENERAL APPEARANCE: Well-nourished, non-toxic, awake and alert, atraumatic, no acute distress. SKIN: Warm, pink, dry, intact, without rashes/lesions/ulcerations. R Foot: Shallow ulceration on the plantar surface of the foot proximal to the fifth MTP, no purulent drainage at this time, no rizo erythema, no fluctuance, mild erythema in the lateral foot without rizo induration, pedal pulse intact, some early onychomycosis around the toenails HEAD: Normocephalic, atraumatic, normal hair distribution for gender/age. EYES: Pupils PERRLA, EOMs intact without nystagmus, normal conjunctiva, no exudates on lids/lashes. ENT: Nares patent, no circumoral cyanosis, no facial swelling NECK: Supple, trachea midline, painless cervical ROM. LUNGS/CHEST: Non-labored respirations, normal A/P diameter, symmetrical expansion, no chest wall deformity HEART (CV/PV): Regular rate, R dorsalis pedis 2+, no peripheral edema, no JVD. ABDOMEN: Soft, non-distended, no guarding. MSK: Normal ROM, no swelling/deformity to bilateral UEs or LEs, moving all extremities without weakness, no cyanosis, spine midline without tenderness, normal curvature. NEURO: Mental Status AAOx4 - alert to person, place, time, events No facial droop, no forehead involvement. Motor: No focal weakness - strength 5/5 in bilateral UEs and LEs, proximal and distal, symmetric. Sensory: sensation intact to light touch globally. Gait normal: patient ambulated without ataxia into ED room. PSYCH: euthymic, cooperative, pleasant, appropriate speech Course Vital Signs Vital signs: Vital Signs Temperature 36.5 C 03/22/23 18:25 Pulse 80 03/22/23 18:25 Respiratory Rate 18 03/22/23 18:25 Blood Pressure 149/81 H 03/22/23 18:25 Pulse Oximetry 99 03/22/23 18:25 Temperature 36.5 C 03/22/23 18:25 Pulse 80 03/22/23 18:25 Respiratory Rate 18 03/22/23 18:25 Blood Pressure 149/81 H 03/22/23 18:25 Blood Pressure Position Sitting 03/22/23 18:25 Pulse Oximetry 99 03/22/23 18:25 Oxygen Delivery Method Room Air 03/22/23 18:25 Oxygen Flow Rate 0 03/22/23 18:25 Pain Level 5 03/22/23 18:25
[2023-03-22 19:55] LABS: Abs Immature Grans 0.05 10^3/uL (0.0-0.06); Absolute Basophil Count 0.06 10^3/uL (0.0-0.2); Absolute Eosinophil Count 0.23 10^3/uL (0.0-0.7); Absolute Lymphocyte Count 1.94 10^3/uL (1.2-3.4); Absolute Monocyte Count 0.92 10^3/uL (0.1-0.8); Absolute Neutrophil Count 5.29 10^3/uL (1.2-6.7); Basophils % 0.7; Eosinophils % 2.7; HCT 38.7 % (40.0-50.0); HGB 12.8 g/dL (13.5-17.5); Immature Grans % 0.6; Lymphocytes % 22.9; MCH 30.5 pg (27.0-33.0); MCHC 33.1 % (32.0-36.0); MCV 92 fL (80-95); MPV 10.3 fL (8.0-11.0); Monocytes % 10.8; Neutrophils % 62.3; Platelet Count 214 10^3/uL (130-400); RDW 13.5 % (11.8-14.1); RDW-SD 45.4 fL; WBC 8.49 10^3/uL (4.4-10.8)
[2023-03-22 19:58] LABS: ESR 8 mm/hr (0-20)
[2023-03-22 20:16] LABS: ALT 18 U/L (16-63); AST 9 U/L (15-37); Albumin 3.3 g/dL (3.4-5.0); Alkaline Phosphatase 58 U/L (46-116); Anion Gap 8.2 mmol/L (3-11); BUN 42 mg/dL (7-18); Bilirubin, Total 0.5 mg/dL (0.2-1.0); C-Reactive Protein 0.62 mg/dL (0.0-0.3); CO2 22.8 mmol/L (21.0-32.0); CREATININE 2.3 mg/dL (0.70-1.30); Calcium 8.9 mg/dL (8.5-10.1); Chloride 106 mmol/L (98-107); Estimated GFR 28.89 (mL/min/1.73m2); Glucose 135 mg/dL (74-106); Potassium 4.4 mmol/L (3.5-5.1); Sodium 137 mmol/L (136-145); Total Protein 7.7 g/dL (6.4-8.2)
--- NOTE | 2023-03-27 18:04 | W.ED.FU ---
Follow Up Plan: placed on renally adjusted cipro and stopped lipitor and hydroxyzine while taking feeling improved per pt
== END 2023-03-22 20:54 | disposition home or self-care (01) ==
PROVIDERS: Emergency Provider Physician Assistant; PCP Internal Medicine
DX: E11.621 Type 2 diabetes mellitus with foot ulcer (principal)
CPT/HCPCS: 36415; 80053; 85652; 99283; 85025; 86140

== ENCOUNTER → 2023-04-16 12:34 | Outpatient (CLI) | payer OTHER, SELFPAY ==
--- NOTE | 2023-04-16 13:21 | DI.RAD_ITS ---
Exam(s) XR FOOT RT COMPLETE EXAM: XR FOOT RT COMPLETE CLINICAL HISTORY: ULCER, ? OSTEOMYELITIS,Z86.31. TECHNIQUE: 2D digital imaging was performed. COMPARISON: CR,XR XR FOOT RT COMPLETE from 03/20/2023 FINDINGS: 3 views Again noted is absence of the distal phalanx of the 5th toe. No obvious osteomyelitis seen at this l evel nor elsewhere in the foot.. There is a skin irregularity and lateral aspect of the foot adjacent to the base of the 5th meta tars al. There is no evidence of radiopaque foreign body at this level. No fractures. No evidence of os teomyelitis. There is lucency in the medial aspect of the head of the 5th metatarsal and adjacent medial base of t he proximal phalanx of the 5th toe, most evident on the AP view. No obvious cortical disruption. Th ere does not appear to be an obvious overlying skin ulcer at this level. IMPRESSION: Findings in the lateral aspect of the foot 5th toe region as described above. If clinically indicate d follow-up MRI can be performed. If patient cannot receive IV contrast MRI can still be performed w ith high specificity for presence of osteomyelitis. DATA REPOSITORY: RADIATION DOSE DELIVERED:
== END ==
PROVIDERS: PCP Internal Medicine; Visit Provider Internal Medicine
DX: R93.89 Abnormal findings on diagnostic imaging of other specified body structures (principal)
CPT/HCPCS: 73630

== ENCOUNTER 2024-05-18 09:18 | Emergency (ER) | payer OTHER, SELFPAY ==
[2024-05-18 09:26] VITALS: BP 142/77; PULSE 68; RESP 16; TEMP 36.2; O2SAT 97
--- NOTE | 2024-05-18 09:36 | ED.GENADUL_ITS ---
Discharge Plan Disposition Patient Disposition: Home Condition: Stable Discharge Details Clinical Impression: Wound, open, foot, Hyperlipidemia, Kidney disease, chronic, stage IV (GFR 15-29 ml/min), Arterial insufficiency with ischemic ulcer Primary Care Provider: Daniele Chambers ED Provider: Mallory Gonzalez Home Meds and New Rx's Prescriptions: No Action atorvastatin [Lipitor] 80 MG tablet 80 mg PO HS clopidogrel [Plavix] 75 MG tablet 75 mg PO DAILY lisinopril 10 MG tablet 10 mg PO DAILY nitroglycerin [Nitrostat] 0.4 MG tablet, sublingual 0.4 mg Sublingual DIRECTED (DME) Blood Glucose Test 1 EACH strip 1 ea Sub-Q AC Qty: 100 3RF Rx Instructions: One Touch Verio test strips hydroxyzine HCl 25 mg Tablet 25 mg PO QHS rivaroxaban 20 mg Tablet 20 mg PO DAILY insulin glargine [Lantus Solostar U-100 Insulin] 100 unit/mL (3 mL) Insulin Pen 32 unit SUBCUT HS Patient Comments: Taking 34 units isosorbide mononitrate 120 mg Tablet Extended Release 24 Hr 120 mg PO DAILY semaglutide 0.25 mg or 0.5 mg (2 mg/3 mL) Pen Injector 0.25 mg SUBCUT QWEEK Patient Comments: 0.5 mg q weekly Rx Instructions: for 4 weeks cephalexin 500 mg capsule 500 mg PO BID Patient Comments: On for life per Pt due to infections after bypass surgery. metoprolol succinate 100 MG tablet extended release 24 hr 100 mg PO BID Discharge Instructions Instructions: Taking care of cuts, scrapes, and puncture wounds Additional Instructions: You were seen in the emergency department today for evaluation of bleeding from a wound on your foot, which was examined and found to have stopped bleeding. In our department you had a full physical examination performed, and it is safe for you to go home and follow-up at your podiatry appointment in 2 weeks. You should follow-up with your primary care provider sooner if you have any concerns, or return to the emergency department if you develop fever, worsening redness, swelling, or pus coming from the wound, or any other symptoms that cause you concern. Thank you for allowing us to be part of your care. HPI General Mode of arrival: ambulatory . Date/Time Provider Initiated Documentation: 05/18/24 09:20 . Limitations to Documentation: no limitations . Information obtained by: patient and old records reviewed . HPI Narrative: HPI: This is a 74-year-old male patient with a past medical history significant for AAA, arterial insufficiency, CKD, hyperlipidemia, and PVD who is presenting for evaluation of a bleeding foot wound. The patient reports that yesterday he was seen at podiatry, and had debridement performed of his foot wound. At that time he was noted to have no evidence for severe infection, has been taking all of his medications including his prophylactic antibiotic as prescribed. This morning he noted that blood had saturated through the bandage, and he presented today given his concern for ongoing bleeding. He states that he is otherwise in his normal state of health, has not had fevers, chills, drainage from the wound, other than bleeding. He has not noted any surrounding redness, and this is an isolated concern. Exam: Gen: Awake and alert, in no apparent distress HEENT: Non-icteric sclera Neck: Supple Lungs: No apparent respiratory distress, normal respiratory effort. CV: Appears well perfused Abdomen: Non-distended MSK: Moves 4 extremities without apparent limitation in ROM Skin: Visualized skin without rashes, cyanosis. The patient has a 2 mm puncture wound type defect on the sole of his right foot on the lateral side, with no active bleeding. Surrounding skin appears well perfused, with no induration, redness, swelling, and no purulent drainage from the wound. Neuro: Normal Gait, no obvious focal deficits or facial asymmetry. Speaks in full, clear sentences. Psych: Appropriate for situation. MDM: This is a 74-year-old male patient who presented to this emergency department with concerns for ongoing bleeding from a foot wound after debridement with podiatry yesterday. Reassuringly, at this time the patient's bleeding has stopped entirely, and I have a low concern for blood loss to the point that he would have developed anemia. He has no evidence for cellulitis, abscess, and I have a low concern for osteomyelitis, NSTI, or other severe infection as a result of his wound. He does take rivaroxaban, which may have contributed to his prolonged bleeding time. ED Course: At this time, the patient is in his normal state of health and I see no indication to proceed with advanced imaging or laboratory studies. We redressed to the patient's foot and it remained hemostatic. 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 At this time, the patient has had a full medical evaluation and is safe for discharge to home. They are hemodynamically stable, ambulatory, and tolerating PO. They are understanding of the follow-up plan and return precautions. They left our facility without incident. Mallory Gonzalez MD Related Data Home Medications ?Medication ?Instructions ?Recorded ?Confirmed atorvastatin 80 mg tablet (Lipitor) 80 mg PO HS 11/08/15 05/18/24 clopidogrel 75 mg tablet (Plavix) 75 mg PO DAILY 11/08/15 05/18/24 lisinopril 10 mg tablet 10 mg PO DAILY 11/08/15 05/18/24 nitroglycerin 0.4 mg sublingual 0.4 mg sublingual DIRECTED 11/08/15 05/18/24 tablet (Nitrostat) blood sugar diagnostic (Blood #100 strips 11/01/17 05/18/24 Glucose Test strips) hydroxyzine HCl 25 mg tablet 25 mg PO QHS 06/05/20 05/18/24 rivaroxaban 20 mg tablet 20 mg PO DAILY 06/05/20 05/18/24 cephalexin 500 mg capsule 500 mg PO BID 07/19/21 05/18/24 insulin glargine 100 unit/mL (3 32 unit subcut HS 06/14/22 05/18/24 mL) subcutaneous pen (Lantus Solostar U-100 Insulin) isosorbide mononitrate 120 mg 120 mg PO DAILY 06/14/22 05/18/24 tablet,extended release 24 hr semaglutide 0.25 mg or 0.5 mg (2 0.25 mg subcut QWEEK 06/14/22 05/18/24 mg/3 mL) subcutaneous pen injector metoprolol succinate 100 mg 100 mg PO BID 05/18/24 05/18/24 tablet,extended release 24 hr Previous Rx's ?Medication ?Instructions ?Recorded blood sugar diagnostic (Blood #100 strips 11/01/17 Glucose Test strips) Allergies Allergy/AdvReac Type Severity Reaction Status Date / Time No Known Allergies Allergy Unverified 05/18/24 09:21 General Stated Complaint: Laceration NADEEM: 3 Course Vital Signs Vital signs: Vital Signs Temperature 36.2 C L 05/18/24 09:26 Pulse 68 05/18/24 09:26 Respiratory Rate 16 05/18/24 09:26 Blood Pressure 142/77 H 05/18/24 09:26 Pulse Oximetry 97 05/18/24 09:26 Temperature 36.2 C L 05/18/24 09:26 Temperature Source Oral 05/18/24 09:26 Pulse 68 05/18/24 09:26 Respiratory Rate 16 05/18/24 09:26 Blood Pressure 142/77 H 05/18/24 09:26 Blood Pressure Position Sitting 05/18/24 09:26 Pulse Oximetry 97 05/18/24 09:26 Oxygen Delivery Method Room Air 05/18/24 09:26 Oxygen Flow Rate 0 05/18/24 09:26 Pain Level 0 05/18/24 09:31 Medical Decision Making Quality:SDOH Health Related Social Needs: No Data to Display PFSH All Active Problems (Updated 05/18/24 @ 09:46 by Mallory Gonzalez MD) Wound, open, foot (Acute) AAA (abdominal aortic aneurysm) (Chronic) Dry gangrene (Chronic) Folic acid deficiency anemia (Chronic) MSSA bacteremia (Acute) In a patient with nonbiologic graft material DVT (deep venous thrombosis) (Acute) Tobacco use disorder (Acute) Patient has not smoked in 5 years Arterial leg ulcer (Acute) Arterial insufficiency with ischemic ulcer (Acute) Infected stasis ulcer of right lower extremity (Acute) MSSA bacteremia (Acute) Kidney disease, chronic, stage IV (GFR 15-29 ml/min) (Acute) Hyperlipidemia (Chronic) PVD (peripheral vascular disease) (Chronic) Vomiting (Acute) Medical History Ambulatory dysfunction Intractable back pain TANIA (acute kidney injury) Back spasm CAD (coronary artery disease) Acute kidney injury superimposed on chronic kidney disease STEMI (ST elevation myocardial infarction) Non-ST elevation (NSTEMI) myocardial infarction Diabetes mellitus type 2 in nonobese Surgical History Atheroscler nonbiologic bypass graft both legs w/intermit claudication Status post left axillary artery to left femoral artery bypass, left to right femoral-femoral bypass, right SFA-posterior tibial bypass Social History Smoking/Tobacco Use Status: Former Tobacco Use Smoking risk assessment performed?: Yes Alcohol Intake: never Drug use: Daily Substance use type: marijuana Housing: apartment Do you feel safe at home: Yes Do you feel safe in your relationship?: Yes
== END 2024-05-18 10:00 | disposition home or self-care (01) ==
LOC: ER 10:04
PROVIDERS: Emergency Provider Emergency Medicine; PCP Internal Medicine
DX: S91.301A Unspecified open wound, right foot, initial encounter (principal); I77.1 Stricture of artery; N18.4 Chronic kidney disease, stage 4 (severe); E78.5 Hyperlipidemia, unspecified; L98.499 Non-pressure chronic ulcer of skin of other sites with unspecified severity; Z98.890 Other specified postprocedural states
CPT/HCPCS: 99282; 99283

== ENCOUNTER 2024-10-28 14:58 | Observation (INO) | payer MEDICARE, OTHER, SELFPAY ==
[2024-10-28] VITALS (12 sets, daily range): BP systolic 97–143; BP diastolic 55–99; PULSE 68–124; RESP 13–23; TEMP 36.6–37.1; O2SAT 89–98
--- NOTE | 2024-10-28 14:45 | RT.EKG_ITS ---
APPROVED REPORT Exam: Resting ECG Reason for Exam: Near syncope Patient Location: E HR:112 bpm ECG Measurements Heart Rate 112 AXIS [place] 166 P 46 QRSd 95 QRS 65 QT 364 T -20 QTc 490 Conclusion Sinus tachycardia...rate> 99 Atrial premature complexes...SV complexes w/ short R-R intvls Inferior infarct, age indeterminate...Q>35mS, T neg, II III aVF pHYSICIAN: NO STEMI
[2024-10-28] MEDS: Metoprolol 50 MG TAB 100 MG PO (15:28)
[2024-10-28 15:55] LABS: Abs Immature Grans 0.06 10^3/uL (0.0-0.06); HCT 41.4 % (40.0-50.0); HGB 14.3 g/dL (13.5-17.5); Immature Grans % 0.7 %; MCH 31.2 pg (27.0-33.0); MCHC 34.5 % (32.0-36.0); MCV 90 fL (80-95); MPV 11.3 fL (8.0-11.0); Platelet Count 168 10^3/uL (130-400); RBC 4.58 10^6/uL (4.36-5.78); RDW 12.6 % (11.8-14.1); RDW-SD 41.2 fL; WBC 9.21 10^3/uL (4.4-10.8)
[2024-10-28 16:11] LABS: ALT 24 U/L (16-63); Albumin 3.5 g/dL (3.4-5.0); Alkaline Phosphatase 85 U/L (46-116); Anion Gap 14.2 mmol/L (3-11); BUN 28 mg/dL (7-18); Bilirubin, Total 0.7 mg/dL (0.2-1.0); CO2 17.8 mmol/L (21.0-32.0); Calcium 8.4 mg/dL (8.5-10.1); Chloride 106 mmol/L (98-107); Estimated GFR 41.26 (mL/min/1.73m2); Glucose 348 mg/dL (74-106); Magnesium 1.9 mg/dL (1.8-2.4); Potassium 3.8 mmol/L (3.5-5.1); Sodium 138 mmol/L (136-145); Total Protein 7.5 g/dL (6.4-8.2)
[2024-10-28 16:13] LABS: Troponin I < 4 ng/L (<or=76)
[2024-10-28] MEDS: dilTIAZem 25 MG/5 ML VIAL 10 MG IVP (16:29)
[2024-10-28 16:31] LABS: INR 1.1 (0.9-1.1); PTT Activated 24.3 sec (20.6-30.2); Prothrombin Time 10.9 sec (9.1-11.1)
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
[2024-10-28 16:45] LABS: AST 15 U/L (15-37)
[2024-10-28 17:40] LABS: TSH (W/Ref FT4) 3.03 uIU/mL (0.36-3.74)
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
--- NOTE | 2024-10-28 18:02 | W.PC.ACHO ---
Registration Status: ADM IN Primary Language: Preferred Language: Armenian ED Information & Data Chief Complaint GenMedical 10/28/24 15:07 Chief Complaint GenMedical 10/28/24 14:58 Triage Note Pt arrives via EMS s/p near 10/28/24 14:58 syncopal episode approx. 1 hr ago. Pt states he never fully lost consciousness. Pt denies CP, denies SOB. Denies any recent illness. Denies any decreased PO intake. Medical / Surgical History (Last Reviewed 03/20/23 @ 10:44 by Jose Mcgee MD) Ambulatory dysfunction Intractable back pain TANIA (acute kidney injury) Back spasm CAD (coronary artery disease) Acute kidney injury superimposed on chronic kidney disease STEMI (ST elevation myocardial infarction) Non-ST elevation (NSTEMI) myocardial infarction Diabetes mellitus type 2 in nonobese (Last Reviewed 03/20/23 @ 10:44 by Jose Mcgee MD) Atheroscler nonbiologic bypass graft both legs w/intermit claudication Most Recent Vital Signs Temperature 37.1 C 10/28/24 15:46 Temperature Source Oral 10/28/24 14:58 Pulse 105 H 10/28/24 17:16 Pulse 110 H 10/28/24 17:16 Respiratory Rate 20 10/28/24 17:16 Respiratory Effort Normal 10/28/24 15:47 Respiratory Depth Normal 10/28/24 15:47 Respiratory Pattern Normal 10/28/24 15:47 Blood Pressure 118/80 10/28/24 17:16 Blood Pressure Mean 93 10/28/24 17:16 Pulse Oximetry 92 10/28/24 17:16 Oxygen Delivery Method Room Air 10/28/24 14:58 Oxygen Flow Rate 0 10/28/24 14:58 Pain Level 0 10/28/24 15:46 Allergies No Known Allergies Allergy (Unverified 10/28/24 15:08) Precautions Isolation Fall precaution 10/28/24 15:07 IV IV Catheter Type [Left Saline Lock Antecubital] IV Catheter Gauge [Left 18 Antecubital] Diet Orders Category Date Time Status Diabetes Consistent CHO/Heart Healthy [DIET] Nutrition 10/28/24 Dinner Active Diagnostics 10/28/24 10/28/24 10/28/24 Range/Units 18:15 17:00 16:15 WBC (4.4-10.8) 10^3/uL RBC (4.36-5.78) 10^6/uL Hgb (13.5-17.5) g/dL Hct (40.0-50.0) % MCV (80-95) fL MCH (27.0-33.0) pg MCHC (32.0-36.0) % RDW (11.8-14.1) % Plt Count (130-400) 10^3/uL MPV (8.0-11.0) fL Immature Gran % % Neutrophils % % Lymphocytes % % Monocytes % % Eosinophils % % Basophils % % Nucleated RBC % (0.0-0.3) % Absolute Neutrophils (1.2-6.7) 10^3/uL Absolute Lymphocytes (1.2-3.4) 10^3/uL Absolute Monocytes (0.1-0.8) 10^3/uL Absolute Eosinophils (0.0-0.7) 10^3/uL Absolute Basophils (0.0-0.2) 10^3/uL PT (9.1-11.1) sec INR (0.9-1.1) APTT (20.6-30.2) sec Sodium (136-145) mmol/L Potassium (3.5-5.1) mmol/L Chloride (98-107) mmol/L Carbon Dioxide (21.0-32.0) mmol/L Anion Gap (3-11) mmol/L BUN (7-18) mg/dL Creatinine (0.70-1.30) mg/dL Est GFR (CKD-EPI 2020) (mL/min/1.73m2) Glucose (74-106) mg/dL Calcium (8.5-10.1) mg/dL Magnesium (1.8-2.4) mg/dL Total Bilirubin (0.2-1.0) mg/dL AST (15-37) U/L ALT (16-63) U/L Alkaline Phosphatase (46-116) U/L Troponin I Cancelled Pending Cancelled (<or=76) ng/L Total Protein (6.4-8.2) g/dL Albumin (3.4-5.0) g/dL TSH (0.36-3.74) uIU/mL 10/28/24 10/28/24 Range/Units 16:05 15:41 WBC 9.21 (4.4-10.8) 10^3/uL RBC 4.58 (4.36-5.78) 10^6/uL Hgb 14.3 (13.5-17.5) g/dL Hct 41.4 (40.0-50.0) % MCV 90 (80-95) fL MCH 31.2 (27.0-33.0) pg MCHC 34.5 (32.0-36.0) % RDW 12.6 (11.8-14.1) % Plt Count 168 (130-400) 10^3/uL MPV 11.3 H (8.0-11.0) fL Immature Gran % 0.7 % Neutrophils % 74.2 % Lymphocytes % 14.2 % Monocytes % 9.3 % Eosinophils % 1.2 % Basophils % 0.4 % Nucleated RBC % 0.0 (0.0-0.3) % Absolute Neutrophils 6.83 H (1.2-6.7) 10^3/uL Absolute Lymphocytes 1.31 (1.2-3.4) 10^3/uL Absolute Monocytes 0.86 H (0.1-0.8) 10^3/uL Absolute Eosinophils 0.11 (0.0-0.7) 10^3/uL Absolute Basophils 0.04 (0.0-0.2) 10^3/uL PT 10.9 (9.1-11.1) sec INR 1.1 (0.9-1.1) APTT 24.3 (20.6-30.2) sec Sodium 138 (136-145) mmol/L Potassium 3.8 (3.5-5.1) mmol/L Chloride 106 (98-107) mmol/L Carbon Dioxide 17.8 L (21.0-32.0) mmol/L Anion Gap 14.2 H (3-11) mmol/L BUN 28 H (7-18) mg/dL Creatinine 1.7 H (0.70-1.30) mg/dL Est GFR (CKD-EPI 2020) 41.26 (mL/min/1.73m2) Glucose 348 H (74-106) mg/dL Calcium 8.4 L (8.5-10.1) mg/dL Magnesium 1.9 (1.8-2.4) mg/dL Total Bilirubin 0.7 (0.2-1.0) mg/dL AST 15 (15-37) U/L ALT 24 (16-63) U/L Alkaline Phosphatase 85 (46-116) U/L Troponin I < 4 (<or=76) ng/L Total Protein 7.5 (6.4-8.2) g/dL Albumin 3.5 (3.4-5.0) g/dL TSH 3.03 (0.36-3.74) uIU/mL Intake and Output - 24 Hour Total 10/28/24 14:51 thru 10/28/24 14:58 Weight 89.9 kg Falls Risk Assessment History of Falls No History 10/28/24 15:47 Contributing Factors Unstable 10/28/24 15:47 Ambulatory Aids Independent 10/28/24 15:47 Tubes/Lines None 10/28/24 15:47 Gait Evaluation No gait disturbance 10/28/24 15:47 Cognition No cognitive impairment 10/28/24 15:47 Fall Total Score 3 10/28/24 15:47 Level of Risk Standard/Low Risk 10/28/24 15:47 v v v v v v v v v Sending and/or Receiving Nurses: Please use comment section below to note any information pertinent to the patient hand-off not included above. Information / Comments: Pt here for near syncope. Pt brought to floor by ED nurse and ambulated to bed with steady gait and no more snear syncopal incidences. Pt was oriented to room, and call garcia was left within reach. No need for bed alarms as pt is independent with ambulation and is aware of need to call for assistacne if feeling dizzy or lightheaded Report received from: [facility]
[2024-10-28] MEDS: dilTIAZem 30 MG TAB PO (18:31)
[2024-10-28 18:56] LABS: Troponin I 5 ng/L (<or=76)
[2024-10-28] MEDS: Normal Saline Flush 10 ML SYR IVP (20:45)
[2024-10-28] MEDS: hydrOXYzine HCL 25 MG TAB PO (20:45)
[2024-10-28] MEDS: Metoprolol CR 100 MG TABCR PO (20:45)
[2024-10-28] MEDS: Cephalexin 500 MG CAP PO (20:45)
[2024-10-28] MEDS: Atorvastatin 40 MG TAB 80 MG PO (20:46)
[2024-10-28] MEDS: Insulin Glargine 300 UNITS/3 ML PEN 34 UNITS SC (22:01)
[2024-10-29] MEDS: dilTIAZem 30 MG TAB PO (00:10)
[2024-10-29 03:30] VITALS: BP 107/65; PULSE 64; RESP 16; TEMP 36.9; O2SAT 96
[2024-10-29 06:38] LABS: Abs Immature Grans 0.02 10^3/uL (0.0-0.06); HCT 40.4 % (40.0-50.0); HGB 13.9 g/dL (13.5-17.5); Immature Grans % 0.3 %; MCH 31.4 pg (27.0-33.0); MCHC 34.4 % (32.0-36.0); MCV 91 fL (80-95); MPV 11.1 fL (8.0-11.0); Platelet Count 165 10^3/uL (130-400); RBC 4.43 10^6/uL (4.36-5.78); RDW 12.7 % (11.8-14.1); RDW-SD 42.2 fL; WBC 6.37 10^3/uL (4.4-10.8)
[2024-10-29 06:47] LABS: Anion Gap 11.5 mmol/L (3-11); BUN 23 mg/dL (7-18); CO2 21.5 mmol/L (21.0-32.0); Calcium 8.9 mg/dL (8.5-10.1); Chloride 109 mmol/L (98-107); Estimated GFR 44.38 (mL/min/1.73m2); Glucose 125 mg/dL (74-106); Potassium 3.9 mmol/L (3.5-5.1); Sodium 142 mmol/L (136-145)
[2024-10-29 07:35] VITALS: BP 127/76; PULSE 69; RESP 16; TEMP 36.4; O2SAT 95
[2024-10-29] MEDS: Clopidogrel 75 MG TAB PO (08:02)
[2024-10-29] MEDS: dilTIAZem CD 120 MG CAPCR PO (08:02)
[2024-10-29] MEDS: Cephalexin 500 MG CAP PO (08:02)
[2024-10-29] MEDS: Lisinopril 10 MG TAB PO (08:02)
[2024-10-29] MEDS: Rivaroxaban 15 MG TABLET PO (08:03)
[2024-10-29] MEDS: Metoprolol CR 100 MG TABCR PO (08:03)
[2024-10-29] MEDS: Normal Saline Flush 10 ML SYR IVP ×2 (08:05)
[2024-10-29] MEDS: Isosorbide Mononitrate 60 MG TABCR 120 MG PO (08:32)
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
[2024-10-29 11:25] VITALS: BP 111/76; PULSE 73; RESP 16; TEMP 36.2; O2SAT 91
== END 2024-10-29 12:08 | disposition home or self-care (01) ==
LOC: ER 16:27 → MS 18:00
PROVIDERS: Admitting Provider Family Medicine; Emergency Provider Emergency Medicine; PCP Internal Medicine; Responsible Provider Nurse Practitioner Acute Care; Visit Provider Family Medicine
DX: R55 Syncope and collapse (principal); N18.4 Chronic kidney disease, stage 4 (severe); R00.0 Tachycardia, unspecified; I25.10 Atherosclerotic heart disease of native coronary artery without angina pectoris; E11.22 Type 2 diabetes mellitus with diabetic chronic kidney disease; I12.9 Hypertensive chronic kidney disease with stage 1 through stage 4 chronic kidney disease, or unspecified chronic kidney disease; I48.91 Unspecified atrial fibrillation; Z79.01 Long term (current) use of anticoagulants; I73.9 Peripheral vascular disease, unspecified; Z95.828 Presence of other vascular implants and grafts; Z87.891 Personal history of nicotine dependence; E78.5 Hyperlipidemia, unspecified; Z86.718 Personal history of other venous thrombosis and embolism; D51.9 Vitamin B12 deficiency anemia, unspecified; I71.40 Abdominal aortic aneurysm, without rupture, unspecified; I25.2 Old myocardial infarction; Z79.4 Long term (current) use of insulin; Z79.85 Long-term (current) use of injectable non-insulin antidiabetic drugs
CPT/HCPCS: 00123; 36415; 80048; 80053; 93005; 96374; 99285; 83735; 84443; 84484; 85025; 85610; 85730; 93010; 99223; 99239; G0378; J1815

== ENCOUNTER 2024-12-03 00:13 | Outpatient (CLI) | payer OTHER, SELFPAY ==
--- NOTE | 2024-12-03 | DI.US_ITS ---
APPROVED REPORT EXAM: Comprehensive 2D, Doppler, and color-flow Echocardiogram Patient Location: Out-Patient Director Of Catering: Jacquie Llanos RT (R) (CT) [facility] Rhythm: Bradycardia Indications: Chest pain. Other Information Study Quality: Fair Conclusion Normal left ventricular wall thickness and chamber size. Ejection fraction is 60 to 65%. Wall motion is normal Diastolic function is normal for age Normal right ventricular size and function Both atria are normal in size There is no structural or hemodynamically significant valvular disease Wall motion Left Ventricle The left ventricle is normal size. The left ventricular systolic function is normal. The left ventricular ejection fraction is within the normal range. There is normal left ventricular wall thickness. There is normal LV segmental wall motion. Grade I diastolic dysfunction. There is no ventricular septal defect visualized. LVEF is 60-65%. Right Ventricle The right ventricle is normal size. The right ventricular systolic function is normal. There is normal right ventricular wall thickness. Atria The left atrium size is normal. The right atrium size is normal. The interatrial septum is intact with no evidence for an atrial septal defect. Aortic Valve Aortic valve is trileaflet. Aortic valve leaflets are mildly thickened. There is no aortic valvular stenosis. No aortic regurgitation is present. Mitral Valve The mitral valve is normal in structure. No evidence of mitral valve stenosis. Trace mitral regurgitation. Tricuspid Valve The tricuspid valve is normal in structure. There is no tricuspid valve stenosis. Trace tricuspid regurgitation. Unable to measure PA pressures due to inadequate TR jet. Pulmonic Valve The pulmonary valve is normal in structure. There is no pulmonic valvular stenosis. There is no pulmonic valvular regurgitation. Great Vessels The aortic root is normal in size. The pulmonary artery is normal. The ascending aorta is normal in size. IVC is normal in size and collapses >50% with inspiration. Pericardium There is no pericardial effusion.
== END 2024-12-03 00:33 ==
PROVIDERS: PCP Internal Medicine; Visit Provider Internal Medicine Cardiovascular Disease
DX: R07.9 Chest pain, unspecified (principal)
CPT/HCPCS: 93306